=== PATIENT | male | born 1985 | race African-American/Black ===

== ENCOUNTER 2017-09-21 19:55 | Emergency (ER) | payer SELFPAY ==
[2017-09-21 20:27] LABS: Absolute Lymphocytes (CBC) 3.3 K/uL (0.7-4.9); Absolute Neutrophil 5.6 K/uL (1.8-8.0); Basophils % 0.8 % (0-1.3); Eosinophils % 2.2 % (0-4.4); Hematocrit 38.7 % (39.6-49.0); Lymphocytes % 32.6 % (15.3-44.8); MCH 28.8 pg (27.0-35.0); MCV 85.3 fL (80-100); MPV 8.2 fL (7.6-11.3); Monocytes % 9.4 % (3.3-12.3); RBC Red Blood Cell Count 4.54 M/uL (4.33-5.43)
[2017-09-21 20:30] LABS: Protime INR 1.07
[2017-09-21 20:35] LABS: Bicarbonate 23 mEq/L (21-31); Glucose Level 390 mg/dL (65-120); Sodium Level 135 mEq/L (135-145)
--- NOTE | 2017-09-21 20:37 | RAD REPORT ---
EXAM DESCRIPTION: RAD - Chest Single View - 09/21/2017 8:18 pm CLINICAL HISTORY: Chest pain. COMPARISON: 07/21/2017 FINDINGS: Portable technique limits examination quality. The lungs are grossly clear. The heart is normal in size. No displaced fractures. IMPRESSION: No acute intrathoracic process suspected.
[2017-09-21 20:41] LABS: ALT/SGPT 25 IU/L (10-60); AST/SGOT 20 IU/L (10-42); Alkaline Phosphatase 77 IU/L (42-121); BUN Blood Urea Nitrogen 13 mg/dL (6-20); Bilirubin Direct 0.1 mg/dL (0-0.2); Bilirubin Total 0.5 mg/dL (0.3-1.2); Creatine Phosphokinase 259 IU/L (22-269); Glomerular Filtration Rate > 90 mL/min (=/>90); Magnesium 1.6 mg/dL (1.8-2.5); Protein, Total 7.4 g/dL (6.0-8.3)
[2017-09-21 20:44] LABS: CKMB Creatine Kinase MB 1.2 ng/ml (0.3-4.0)
[2017-09-21] MEDS ORDERED: NA CHLORIDE 0.9% 1,000 ML ONE (20:45)
[2017-09-21] MEDS ORDERED: INSULIN -REGULAR HUMAN 50 UNIT/0.5 ML ML ONE (20:45)
[2017-09-21 21:04] LABS: Urine Blood TRACE (NEG); Urine Glucose 2+ (NEG); Urine Protein NEGATIVE (NEG); Urine Specific Gravity 1.015 (1.005-1.030)
[2017-09-21] MEDS ORDERED: TRAMADOL HCL 50 MG TAB ONE (21:11)
--- NOTE | 2017-09-21 21:43 | RAD REPORT ---
EXAM DESCRIPTION: CT - Chest For Pe Angio - 09/21/2017 9:33 pm CLINICAL HISTORY: Chest pain. COMPARISON: None. TECHNIQUE: CT angiogram of the pulmonary arteries was performed with MIP. All CT scans are performed using dose optimization technique as appropriate and may include automated exposure control or mA/KV adjustment according to patient size. FINDINGS: No evidence of pulmonary thromboembolism. No acute aortic finding demonstrated. The lungs are clear. No significant pericardial or pleural fluid. No concerning bony finding. IMPRESSION: No evidence of pulmonary thromboembolism. No acute lung findings.
--- NOTE | 2017-09-21 23:31 | EDPHYS ---
Physician Documentation [facility] Name: Dustin Granados Jr Age: 32 yrs Sex: Male : 1985 Arrival Date: 09/21/2017 Time: 19:59 Bed 4 Private MD: ED Physician Jimi Pinto HPI: 09/21 20:15 This 32 yrs old Black Male presents to ER via EMS with unknown complaint. pkl 20:15 The patient or guardian reports chest pain that is located primarily in the left side pkl chest. The pain does not radiate. Associated signs and symptoms: Pertinent positives: shortness of breath. The chest pain is described as sharp, Chest pain intermittent. Historical: - Allergies: 20:05 No Known Allergies; fc - Home Meds: 20:05 losartan 50 mg oral tab 1 tab once daily [Active]; Eliquis 5 mg oral tab 1 tab 2 times fc per day [Active]; aspirin 325 mg Oral TbEC 1 tab once daily [Active]; Glyburide Oral 2 times per day [Active]; - PMHx: 20:05 Myocardial infarction; Diabetes - NIDDM; left leg dvt; fc - PSHx: 20:05 Knee surgery; fc - Immunization history:: Last tetanus immunization: unknown. - Social history:: Smoking status: Patient/guardian denies using tobacco, the patient reports quitting approximately .4 years ago, Patient/guardian denies using alcohol, street drugs. ROS: 20:15 Eyes: Negative for injury, pain, redness, and discharge, ENT: Negative for injury, pkl pain, and discharge, Neck: Negative for injury, pain, and swelling. 20:15 Cardiovascular: Positive for chest pain. 20:15 Respiratory: Negative for cough, shortness of breath. 20:15 Abdomen/GI: Negative for abdominal pain, nausea, vomiting, and diarrhea. 20:15 Back: Negative for acute changes. 20:15 : Negative for urinary symptoms. 20:15 MS/extremity: Negative for acute changes. 20:15 Skin: Negative for rash. 20:15 Neuro: Negative for altered mental status. Exam: 20:15 Head/Face: Normocephalic, atraumatic. Eyes: Pupils equal round and reactive to light, pkl extra-ocular motions intact. Lids and lashes normal. Conjunctiva and sclera are non-icteric and not injected. Cornea within normal limits. Periorbital areas with no swelling, redness, or edema. ENT: Nares patent. No nasal discharge, no septal abnormalities noted. Tympanic membranes are normal and external auditory canals are clear. Oropharynx with no redness, swelling, or masses, exudates, or evidence of obstruction, uvula midline. Mucous membranes moist. Neck: Trachea midline, no thyromegaly or masses palpated, and no cervical lymphadenopathy. Supple, full range of motion without nuchal rigidity, or vertebral point tenderness. No Meningismus. Chest/axilla: Normal chest wall appearance and motion. Nontender with no deformity. No lesions are appreciated. Cardiovascular: Regular rate and rhythm with a normal S1 and S2. No gallops, murmurs, or rubs. Normal PMI, no JVD. No pulse deficits. Respiratory: Lungs have equal breath sounds bilaterally, clear to auscultation and percussion. No rales, rhonchi or wheezes noted. No increased work of breathing, no retractions or nasal flaring. Abdomen/GI: Soft, non-tender, with normal bowel sounds. No distension or tympany. No guarding or rebound. No evidence of tenderness throughout. Back: No spinal tenderness. No costovertebral tenderness. Full range of motion. Skin: Warm, dry with normal turgor. Normal color with no rashes, no lesions, and no evidence of cellulitis. MS/ Extremity: Pulses equal, no cyanosis. Neurovascular intact. Full, normal range of motion. Neuro: Awake and alert, GCS 15, oriented to person, place, time, and situation. Cranial nerves II-XII grossly intact. Motor strength 5/5 in all extremities. Sensory grossly intact. Cerebellar exam normal. Normal gait. Vital Signs: 19:58 BP 139 / 86; Pulse 85; Resp 18; Temp 98.6(O); Pulse Ox 100% on R/A; Weight 140.16 kg fc (R); Height 5 ft. 11 in. (180.34 cm) (R); Pain 0/10; 21:00 BP 127 / 80; Pulse 79; Resp 18; Pulse Ox 100% ; aa1 21:50 BP 111 / 68; Pulse 78; Resp 18 S; Pulse Ox 100% on R/A; cc 22:32 BP 112 / 82; Pulse 70; Resp 20 S; Temp 97.9(O); Pulse Ox 99% ; bb 19:58 Body Mass Index 43.10 (140.16 kg, 180.34 cm) fc MDM: 20:00 Patient medically screened. pk 23:28 Data reviewed: vital signs, nurses notes, lab test result(s), EKG, radiologic studies, pkl CT scan, plain films. 09/21 20:06 Order name: Basic Metabolic Panel; Complete Time: 21:11 [facility] 09/21 20:06 Order name: BNP; Complete Time: 21:11 1 09/21 20:06 Order name: CBC with Diff; Complete Time: 20:31 em1 09/21 20:06 Order name: Ckmb; Complete Time: 21:11 [facility] 09/21 20:06 Order name: CPK; Complete Time: 21:11 1 09/21 20:06 Order name: LFT's; Complete Time: 21:11 [facility] 09/21 20:06 Order name: Magnesium; Complete Time: 21: [facility] 09/21 20:06 Order name: PT-INR; Complete Time: 21:11 1 09/21 20:06 Order name: Ptt, Activated; Complete Time: 21:11 [facility] 09/21 20:06 Order name: Troponin (emerg Dept Use Only); Complete Time: 21:11 1 09/21 20:14 Order name: Hemoglobin A1c [facility] 09/21 20:20 Order name: D-Dimer; Complete Time: 21:11 EDMD 09/21 20:53 Order name: Urine Dipstick--Ancillary (enter results); Complete Time: 21: [facility] 09/21 20:06 Order name: XRAY Chest (1 view); Complete Time: 21:11 1 09/21 20:06 Order name: EKG; Complete Time: 20:07 1 09/21 20:06 Order name: Cardiac monitoring; Complete Time: 20: 1 09/21 20:06 Order name: EKG - Nurse/Tech; Complete Time: 20:31 09/21 20:06 Order name: IV Saline Lock; Complete Time: 20:31 1 09/21 20:06 Order name: Labs collected and sent; Complete Time: 20:32 1 09/21 20:06 Order name: O2 Per Protocol; Complete Time: 20:32 em1 09/21 20:06 Order name: O2 Sat Monitoring; Complete Time: 20:32 em1 09/21 20:06 Order name: Urine Dipstick-Ancillary (obtain specimen); Complete Time: 20:52 em1 09/21 20:14 Order name: Accucheck: q hourly; Complete Time: 21:31 pkl 09/21 21:12 Order name: CT Chest For PE Angio; Complete Time: 22:55 pkl Administered Medications: 20:31 Drug: NS 0.9% 1000 ml Route: IV; Rate: 100 ml/hr; Site: left antecubital; bb 23:44 Follow up: IV Status: Order to discontinue infusion; IV Intake: 300ml bb 20:40 Drug: Insulin Regular Human 10 units {Co-Signature: aa1 (Jasmyne Mccarthy RN).} Route: IVP; bb Site: left antecubital; 22:07 Follow up: Response: Blood sugar is lowered bb 20:55 Drug: traMADol 50 mg Route: PO; bb 22:07 Follow up: Response: Pain is decreased bb 23:28 Not Given (Patient Refused): Magnesium Sulfate 1 grams IVPB once over 1 hrs pkl 23:30 Drug: Magnesium Oxide 400 mg Route: PO; bb 23:44 Follow up: Response: No adverse reaction bb Point of Care Testing: Blood Glucose: 21:48 Blood Glucose: 162 mg/dL; cc 23:36 Blood Glucose: 189 mg/dL; cc Ranges: Critical Glucose Levels:Adult <50 mg/dl or >400 mg/dl <40 mg/dl or >180 mg/dl Disposition: 09/21/17 23:30 Discharged to Home. Impression: Chest pain. Uncontrolled diabetes. - Condition is Stable. - Medication Reconciliation Form, Thank You Letter, Antibiotic Education, Prescription Opioid Use form. - Follow up: Private Physician; When: 2 - 3 days; Reason: Re-evaluation by your physician. - Problem is new. - Symptoms have improved. Signatures: Dispatcher [employer] EDJimi Christianson MD MD pkl Chretien, Felicia, RN RN fc Ballard, Brenda, RN RN bb Martinez, Eric em1 Jasmyne Mccarthy RN aa1 Corrections: (The following items were deleted from the chart) 20:20 20:11 D-DIMER+[id number].BRZ ordered. EDMS EDMS
--- NOTE | 2017-09-21 23:31 | ER ---
Nurse's Notes [facility] Name: Dustin Granados Jr Age: 32 yrs Sex: Male : 1985 Arrival Date: 09/21/2017 Time: 19:59 Bed 4 Private MD: Diagnosis: Chest pain. Uncontrolled diabetes Presentation: 09/21 19:58 Presenting complaint: Patient states: that at 0300 he started to have intermittent fc sharp stabbing chest pain with shortness of breath. Denies any nausea or vomiting. Transition of care: patient was not received from another setting of care. Onset of symptoms was September 21, 2017 at 03:00. Care prior to arrival: Medication(s) given: ASA, 81 mg, x 4, Nitroglycerin, 0.4 mg SL x 1, Nitro paste 2 inches to chest wall IV initiated. 18 GA, in the right antecubital area, Glucose check: 465. 19:58 Method Of Arrival: EMS: [facility] 19:58 Acuity: NICHOLE 2 fc Historical: - Allergies: 20:05 No Known Allergies; fc - Home Meds: 20:05 losartan 50 mg oral tab 1 tab once daily [Active]; Eliquis 5 mg oral tab 1 tab 2 times fc per day [Active]; aspirin 325 mg Oral TbEC 1 tab once daily [Active]; Glyburide Oral 2 times per day [Active]; - PMHx: 20:05 Myocardial infarction; Diabetes - NIDDM; left leg dvt; fc - PSHx: 20:05 Knee surgery; fc - Immunization history:: Last tetanus immunization: unknown. - Social history:: Smoking status: Patient/guardian denies using tobacco, the patient reports quitting approximately .4 years ago, Patient/guardian denies using alcohol, street drugs. Screenin:06 Abuse screen: Denies threats or abuse. Nutritional screening: No deficits noted. fc Tuberculosis screening: No symptoms or risk factors identified. Fall Risk None identified. Assessment: 20:07 General: Appears in no apparent distress. uncomfortable, obese, Behavior is bb cooperative, anxious, Reports chest pain since 0330 this morning with shortness of breath. Pain: Complains of pain in chest. Neuro: Level of Consciousness is awake, alert, obeys commands, Oriented to person, place, time, situation. Cardiovascular: Heart tones S1 S2 Capillary refill < 3 seconds Patient's skin is warm and dry. Respiratory: 20:08 Respiratory: Respiratory pattern is tachypnea Breath sounds are clear bilaterally. GI: bb No signs and/or symptoms were reported involving the gastrointestinal system. Derm: Skin is dry, Skin is normal, Skin temperature is warm. Musculoskeletal: Circulation, motion, and sensation intact. Swelling present in left leg Reports DVT in left leg with swelling. 21:33 Reassessment: Patient and/or family updated on plan of care and expected duration. Pain bb level reassessed. pt A\T\O x 4, resp tachypneic, IV site patent, intact with fluids infusing. 22:33 Reassessment: Patient and/or family updated on plan of care and expected duration. Pain bb level reassessed. pt states his pain has improved, resting quietly, IV site intact, patent with fluids infusing, awaiting repeat labs. 23:42 Reassessment: Patient is alert, oriented x 3, equal unlabored respirations, skin bb warm/dry/pink. pt resp unlabored, states he is feeling better, verbalized understanding of and agrees to plan of care discharge instructions given pt ambulated with steady gait to exit. Vital Signs: 19:58 BP 139 / 86; Pulse 85; Resp 18; Temp 98.6(O); Pulse Ox 100% on R/A; Weight 140.16 kg fc (R); Height 5 ft. 11 in. (180.34 cm) (R); Pain 0/10; 21:00 BP 127 / 80; Pulse 79; Resp 18; Pulse Ox 100% ; aa1 21:50 BP 111 / 68; Pulse 78; Resp 18 S; Pulse Ox 100% on R/A; cc 22:32 BP 112 / 82; Pulse 70; Resp 20 S; Temp 97.9(O); Pulse Ox 99% ; bb 19:58 Body Mass Index 43.10 (140.16 kg, 180.34 cm) ED Course: 19:58 Arm band placed on Patient placed in an exam room, on a stretcher, on radiation monitor. fc 19:59 Patient arrived in ED. em1 20:00 Jimi Pinto MD is Attending Physician. pkl 20:03 Triage completed. fc 20:06 Isha Montano RN is Primary Nurse. bb 20:06 Patient has correct armband on for positive identification. Bed in low position. Call fc light in reach. athletic monitor on. Pulse ox on. NIBP on. 20:07 No provider procedures requiring assistance completed. Maintain EMS IV. Dressing fc intact. Good blood return noted. Site clean \T\ dry. Gauge \T\ site: 18 gauge to right a/c. 20:08 Warm blanket given. bb 20:18 X-ray completed. Portable x-ray completed in exam room. Patient tolerated procedure kc2 well. 20:18 XRAY Chest (1 view) In Process Unspecified. EDMS 21:33 CT Chest For PE Angio In Process Unspecified. EDMS 23:48 IV discontinued, intact, bleeding controlled, No redness/swelling at site. Pressure bb dressing applied. Administered Medications: 20:31 Drug: NS 0.9% 1000 ml Route: IV; Rate: 100 ml/hr; Site: left antecubital; bb 23:44 Follow up: IV Status: Order to discontinue infusion; IV Intake: 300ml bb 20:40 Drug: Insulin Regular Human 10 units {Co-Signature: aa1 (Jasmyne Mccarthy RN).} Route: IVP; bb Site: left antecubital; 22:07 Follow up: Response: Blood sugar is lowered bb 20:55 Drug: traMADol 50 mg Route: PO; bb 22:07 Follow up: Response: Pain is decreased bb 23:28 Not Given (Patient Refused): Magnesium Sulfate 1 grams IVPB once over 1 hrs pkl 23:30 Drug: Magnesium Oxide 400 mg Route: PO; bb 23:44 Follow up: Response: No adverse reaction bb Point of Care Testing: Blood Glucose: 21:48 Blood Glucose: 162 mg/dL; cc 23:36 Blood Glucose: 189 mg/dL; cc Ranges: Intake: 23:44 IV: 300ml; Total: 300ml. bb Outcome: 23:30 Discharge ordered by . pkl 23:48 Discharged to home ambulatory, with family. bb 23:48 Condition: stable 23:48 Discharge instructions given to patient, Instructed on discharge instructions, follow up and referral plans. Demonstrated understanding of instructions, follow-up care. 23:50 Patient left the ED. bb Signatures: Dispatcher [employer] Jasmyne Mcdonald RN RN aa1 Jimi Pinto MD MD pkChel Cabral RN RN fc Ballard, Brenda RN Brody Jarvis em1 Lore Ott Kelsie 2 Jasmyne Mccarthy RN aa1 Corrections: (The following items were deleted from the chart) 21:33 20:08 Respiratory: Breath sounds are clear bilaterally. raquel garcía 23:49 22:32 BP 112 / 82; Pulse 70bpm; Resp 20bpm; Spontaneous; Pulse Ox 99%; raquel garcía
[2017-09-21] MEDS ORDERED: MAGNESIUM OXIDE 400 MG TAB ONE (23:52)
[2017-09-21 23:58] VITALS: BP 112/82; TEMP 97.9; O2SAT 99
[2017-09-22 01:36] LABS: A1c Component 1.03 mg/dL; Hemoglobin A1c 9.2 % (4-6.0)
--- NOTE | 2017-09-22 06:06 | EKG ---
Test Date: 2017-09-21 Test Time: 19:59:42 Director Of Rehabilitation: MEASUREMENT RESULTS: Intervals: Rate: 82 [place]: 140 QRSD: 80 QT: 360 QTc: 420 [place]: P: 0 [place]: 140 QRS: 57 T: 19 INTERPRETIVE STATEMENTS: Normal sinus rhythm Normal ECG Compared to ECG 07/21/2017 14:57:54 No significant changes Electronically Signed On 09-22-17 06:06:22 CDT by Aba Hatch
== END 2017-09-21 23:50 | disposition home or self-care (01) ==
LOC: ER 19:55
DX: E11.65 Type 2 diabetes mellitus with hyperglycemia (principal); I25.2 Old myocardial infarction; Z79.82 Long term (current) use of aspirin; Z87.891 Personal history of nicotine dependence
CPT/HCPCS: 36415; 71045; 71275; 80048; 80076; 81003; 82550; 82553; 82962; 83036; 83735; 83880; 84484; 85025; 85379; 85610; 85730; 93005; 96361; 96374; 99284; J7030; Q9967

== ENCOUNTER 2018-10-13 15:44 | Emergency (ER) | payer SELFPAY ==
[2018-10-13 16:34] LABS: Absolute Lymphocytes (CBC) 2.4 K/uL (0.7-4.9); Absolute Monocytes 0.6 K/uL (0.1-1.3); Absolute Neutrophil 4.9 K/uL (1.8-8.0); Basophils % 0.7 % (0-1.3); Eosinophils % 1.7 % (0-4.4); Hematocrit 46.2 % (39.6-49.0); Lymphocytes % 29.3 % (15.3-44.8); MPV 8.1 fL (7.6-11.3)
[2018-10-13] MEDS ORDERED: KETOROLAC 30 MG/ML INJ ONE (16:35)
[2018-10-13] MEDS ORDERED: NA CHLORIDE 0.9% 1,000 ML ONE ×2 (16:35→18:00)
[2018-10-13] MEDS ORDERED: ONDANSETRON 4 MG/2 ML VIAL ONE (16:35)
--- NOTE | 2018-10-13 16:40 | RAD REPORT ---
EXAM DESCRIPTION: CT - Stone Protocol - 10/13/2018 4:31 pm CLINICAL HISTORY: Right abdominal pain, right-sided flank pain COMPARISON: None. TECHNIQUE: Axial 5 mm thick images were obtained without oral or IV contrast. The [id number] span s the entirety of the system partially obscuring uppermost abdomen and lung bases. All CT scans are performed using dose optimization technique as appropriate and may include automated exposure control or mA/KV adjustment according to patient size. FINDINGS: No hydronephrosis is present and no obstructing ureteral calculi. No suspicious renal mass es. Isodense masses and pyelonephritis are not excluded on a stone protocol CT scan. No urinary bladd er suspicious finding. No significant adrenal finding. Prostate gland and seminal vesicles within nor mal limits for noncontrast imaging. Imaged portions of the liver, spleen and pancreas show no suspicious findings on non-contrast imaging . No gallbladder or biliary tree abnormality identified. No suspicious bowel findings. Appendix is normal. Moderate stool volume distends the rectum. No mass or bulky lymphadenopathy. A small fat only umbilical hernia is present. No free air, free flu id or inflammatory stranding. No significant bony abnormality. Disc and bony degenerative changes are present in the mid and lower lumbar spine extending into the SI joints. IMPRESSION: Negative noncontrast CT abdomen and pelvis imaging for acute findings. Isodense masses and pyelonephritis are not excluded on stone protocol technique. Nonacute findings detailed in the body of the report.
[2018-10-13] MEDS ORDERED: CYCLOBENZAPRINE 10 MG TAB ONE (17:14)
[2018-10-13 17:22] LABS: Urine Bacteria <20 /HPF (NONE SEEN); Urine Culture Reflex Order NOT NEEDED; Urine RBC <5 /HPF (NONE SEEN)
[2018-10-13 17:33] LABS: ALT/SGPT 25 U/L (12-78); AST/SGOT 9 U/L (15-37); Albumin 3.9 g/dL (3.4-5.0); Alkaline Phosphatase 94 U/L (45-117); BUN Blood Urea Nitrogen 6 mg/dL (7-18); Bicarbonate 25 mmol/L (21-32); Bilirubin Direct 0.1 mg/dL (0-0.2); Bilirubin Total 0.3 mg/dL (0.2-1.0); Lipase 100 U/L (73-393); Protein, Total 7.9 g/dL (6.4-8.2); Sodium Level 138 mmol/L (136-145)
[2018-10-13 17:36] LABS: Glucose Level 420 mg/dL (74-106)
[2018-10-13] MEDS ORDERED: INSULIN -REGULAR HUMAN 50 UNIT/0.5 ML ML ONE (17:59)
[2018-10-13 18:37] LABS: Urine Blood NEGATIVE (NEG); Urine Glucose 2+ (NEG); Urine Protein NEGATIVE (NEG)
--- NOTE | 2018-10-13 19:08 | EDPHYS ---
Physician Documentation [facility] Name: Dustin Granados Jr Age: 33 yrs Sex: Male : 1985 Arrival Date: 10/13/2018 Time: 15:47 Bed 24 Private MD: None, None ED Physician Kyaw Rivera HPI: 10/13 16:05 This 33 yrs old Black Male presents to ER via Ambulatory with complaints of Flank Pain. cp 16:05 The patient complains of pain in the right mid back. The pain does not radiate. Onset: cp The symptoms/episode began/occurred last night. Associated signs and symptoms: Pertinent positives: diarrhea, Pertinent negatives: dysuria, fever, pain radiating to the lower extremities, vomiting. Severity of pain: in the emergency department the pain is actually worse. Historical: - Allergies: 15:52 No Known Allergies; hb - Home Meds: 15:51 Eliquis 5 mg Oral tab 1 tab 2 times per day [Active]; hb - PMHx: 15:51 Diabetes - NIDDM; left leg DVT; Myocardial infarction; hb - PSHx: 15:51 Knee surgery; hb - Immunization history:: Adult Immunizations up to date. - Social history:: Smoking status: Patient/guardian denies using tobacco. - Ebola Screening: : No symptoms or risks identified at this time. ROS: 16:10 Constitutional: Negative for body aches, chills, fever, poor PO intake. cp 16:10 Eyes: Negative for injury, pain, redness, and discharge. cp 16:10 ENT: Negative for drainage from ear(s), ear pain, sore throat, difficulty swallowing, difficulty handling secretions. 16:10 Cardiovascular: Negative for chest pain, edema, palpitations. 16:10 Respiratory: Negative for cough, shortness of breath, wheezing. 16:10 Abdomen/GI: Positive for diarrhea, Negative for abdominal pain, nausea, vomiting, constipation, anorexia, black/tarry stool, rectal bleeding. 16:10 Back: Positive for flank pain, on the right. 16:10 : Negative for urinary symptoms, burning with urination, difficulty urinating, bladder incontinence, testicular pain 16:10 Skin: Negative for cellulitis, rash. 16:10 Neuro: Negative for altered mental status, headache, weakness. 16:10 All other systems are negative. Exam: 16:15 Constitutional: The patient appears in no acute distress, alert, awake, cp non-diaphoretic, non-toxic, well developed, well nourished, uncomfortable. 16:15 Head/Face: Normocephalic, atraumatic. cp 16:15 Eyes: Periorbital structures: appear normal, Conjunctiva: normal, no exudate, no injection, Lids and lashes: appear normal, bilaterally. 16:15 ENT: External ear(s): are unremarkable, Nose: is normal, Mouth: Lips: moist, Oral mucosa: pink and intact, moist, Posterior pharynx: is normal, airway is patent, no erythema, no exudate. 16:15 Neck: ROM/movement: is normal, is supple, without pain, no range of motions limitations, no nuchal rigidity. 16:15 Chest/axilla: Inspection: normal, Palpation: is normal, no crepitus, no tenderness. 16:15 Cardiovascular: Rate: tachycardic, Rhythm: regular. 16:15 Respiratory: the patient does not display signs of respiratory distress, Respirations: normal, no use of accessory muscles, no retractions, no splinting, no tachypnea, labored breathing, is not present, Breath sounds: are clear throughout, no decreased breath sounds, no stridor, no wheezing. 16:15 Abdomen/GI: Inspection: abdomen appears normal, Bowel sounds: active, all quadrants, Palpation: abdomen is soft and non-tender, in all quadrants, rebound tenderness, is not appreciated, voluntary guarding, is not appreciated, involuntary guarding, is not appreciated. 16:15 Back: pain, that is moderate, of the right mid back, ROM is painful, with all movement, Straight leg raises: of both lower extremities does not illicit pain. 16:15 Skin: cellulitis, is not appreciated, no rash present. Vital Signs: 15:50 BP 177 / 122; Pulse 118; Resp 18; Temp 97.9; Pulse Ox 100% on R/A; Pain 10/10; hb 17:07 BP 127 / 86; Pulse 73; Resp 17 S; Pulse Ox 100% on R/A; ca1 17:53 BP 132 / 87; Pulse 67; Resp 18 S; Pulse Ox 100% on R/A; ca1 18:55 BP 139 / 90; Pulse 67; Resp 18 S; Pulse Ox 100% on R/A; ca1 MDM: 16:01 Patient medically screened. 19:06 Data reviewed: vital signs, nurses notes, lab test result(s), radiologic studies, CT cp scan. 19:06 Counseling: I had a detailed discussion with the patient and/or guardian regarding: the cp historical points, exam findings, and any diagnostic results supporting the discharge/admit diagnosis, lab results, radiology results, to return to the emergency department if symptoms worsen or persist or if there are any questions or concerns that arise at home. Response to treatment: the patient's symptoms have markedly improved after treatment, and as a result, I will discharge patient. 10/13 16:07 Order name: Basic Metabolic Panel; Complete Time: 17:37 10/13 17:38 Interpretation: Normal except: GLUC 420; BUN 6. 10/13 16:07 Order name: CBC with Diff; Complete Time: 16:43 10/13 16:43 Interpretation: Reviewed. 10/13 16:07 Order name: Creatinine for Radiology; Complete Time: 17:04 10/13 17:04 Interpretation: Reviewed. 10/13 16:07 Order name: Hepatic Function; Complete Time: 17:37 10/13 17:58 Interpretation: Normal except: AST 9; GLOB 4.0; A/G 1.0. 10/13 16:07 Order name: Lipase; Complete Time: 17:37 cp 10/13 16:07 Order name: Urine Microscopic Only; Complete Time: 17:37 10/13 16:13 Order name: CT Stone Protocol; Complete Time: 16:43 10/13 17:05 Interpretation: Report reviewed. 10/13 16:34 Order name: Urine Dipstick--Ancillary (enter results); Complete Time: 18:46 10/13 18:46 Interpretation: Reviewed. 10/13 19:04 Order name: Glucose, Ancillary Testing EDFL 10/13 16:07 Order name: IV Saline Lock; Complete Time: 16:26 10/13 16:07 Order name: Labs collected and sent; Complete Time: 16:26 10/13 16:07 Order name: Urine Dipstick-Ancillary (obtain specimen); Complete Time: 16:26 cp Administered Medications: 16:22 Drug: NS 0.9% 1000 ml Route: IV; Rate: 1 bolus; Site: right antecubital; ca1 17:51 Follow up: Response: No adverse reaction; IV Status: Completed infusion ca1 16:23 Drug: Zofran 4 mg Route: IVP; Site: right antecubital; ca1 17:03 Follow up: Response: No adverse reaction; Nausea is decreased ca1 16:25 Drug: TORadol 30 mg Route: IVP; Site: right antecubital; ca1 17:03 Follow up: Response: No adverse reaction; Pain is decreased ca1 17:00 Drug: Flexeril 10 mg Route: PO; ca1 17:50 Follow up: Response: No adverse reaction; Pain is decreased ca1 17:49 Drug: NS 0.9% 1000 ml Route: IV; Rate: 1 bolus; Site: right antecubital; ca1 18:50 Follow up: IV Status: Completed infusion ca1 17:50 Drug: Insulin Regular Human 10 units {Co-Signature: mg2 (Jayden Caceres RN).} Route: ca1 IVP; Site: right antecubital; 19:00 Follow up: Response: No adverse reaction; Blood sugar is lowered ca1 Point of Care Testing: Blood Glucose: 19:00 Blood Glucose: 173 mg/dL; lt1 Ranges: Critical Glucose Levels:Adult <50 mg/dl or >400 mg/dl <40 mg/dl or >180 mg/dl Disposition: 10/13/18 19:07 Discharged to Home. Impression: Low back pain - Right, Diabetes mellitus due to underlying condition with hyperglycemia. - Condition is Stable. - Discharge Instructions: Back Pain, Adult, Blood Glucose Monitoring, Adult, Diabetes Mellitus and Food, Back Exercises. - Prescriptions for Naprosyn 500 mg Oral Tablet - take 1 tablet by ORAL route 2 times per day take with food; 20 tablet. Cyclobenzaprine 10 mg Oral Tablet - take 1 tablet by ORAL route every 8 hours As needed no driving while taking medication; 20 tablet. - Medication Reconciliation Form, Thank You Letter, Antibiotic Education, Prescription Opioid Use form. - Follow up: Private Physician; When: 2 - 3 days; Reason: Recheck today's complaints. - Problem is new. - Symptoms have improved. Signatures: Dispatcher [employer] EDFL Kyaw Almaguer PA PA cp Baxter, Heather, RN RN Fanta Ramos RN RN ca1 Jayden Gardose RN mg2 Corrections: (The following items were deleted from the chart) 19:29 19:07 10/13/2018 19:07 Discharged to Home. Impression: Low back pain - Right; Diabetes ca1 mellitus due to underlying condition with hyperglycemia. Condition is Stable. Forms are Medication Reconciliation Form, Thank You Letter, Antibiotic Education, Prescription Opioid Use. Follow up: Private Physician; When: 2 - 3 days; Reason: Recheck today's complaints. Problem is new. Symptoms have improved. cp
--- NOTE | 2018-10-13 19:08 | ER ---
[facility] Name: Dustin Granados Jr Age: 33 yrs Sex: Male : 1985 Arrival Date: 10/13/2018 Time: 15:47 Bed 24 Private MD: None, None Diagnosis: Low back pain-Right;Diabetes mellitus due to underlying condition with hyperglycemia Presentation: 10/13 15:49 Presenting complaint: Right flank pain x 2 days. Transition of care: patient was not hb received from another setting of care. Onset of symptoms was October 12, 2018. Risk Assessment: Do you want to hurt yourself or someone else? Patient reports no desire to harm self or others. Care prior to arrival: None. 15:49 Method Of Arrival: Ambulatory hb 15:49 Acuity: NICHOLE 2 hb 16:00 Initial Sepsis Screen: Does the patient meet any 2 criteria? No. Patient's initial ca1 sepsis screen is negative. Does the patient have a suspected source of infection? No. Patient's initial sepsis screen is negative. Historical: - Allergies: 15:52 No Known Allergies; hb - Home Meds: 15:51 Eliquis 5 mg Oral tab 1 tab 2 times per day [Active]; hb - PMHx: 15:51 Diabetes - NIDDM; left leg DVT; Myocardial infarction; hb - PSHx: 15:51 Knee surgery; hb - Immunization history:: Adult Immunizations up to date. - Social history:: Smoking status: Patient/guardian denies using tobacco. - Ebola Screening: : No symptoms or risks identified at this time. Screenin:00 Abuse screen: Denies threats or abuse. Denies injuries from another. Nutritional ca1 screening: No deficits noted. Tuberculosis screening: No symptoms or risk factors identified. Fall Risk None identified. Assessment: 16:00 General: Appears in no apparent distress. comfortable, Behavior is calm, cooperative, ca1 appropriate for age. Pain: Complains of pain in right low back Pain radiates to posterior aspect of right lateral abdomen Pain currently is 10 out of 10 on a pain scale. Quality of pain is described as sharp, Pain began 1 day ago. Neuro: Level of Consciousness is awake, alert, obeys commands, Oriented to person, place, time, situation. Cardiovascular: Heart tones S1 S2 present Capillary refill < 3 seconds Patient's skin is warm and dry. Respiratory: Airway is patent Respiratory effort is even, unlabored, Respiratory pattern is regular, symmetrical, Breath sounds are clear bilaterally. GI: Abdomen is round non-distended, Bowel sounds present X 4 quads. Abd is soft X 4 quads Abdomen is tender to palpation in anterior aspect of right lateral abdomen and posterior aspect of right lateral abdomen. : No deficits noted. No signs and/or symptoms were reported regarding the genitourinary system. EENT: No deficits noted. No signs and/or symptoms were reported regarding the EENT system. Derm: Skin is intact, is healthy with good turgor, Skin is pink, warm \T\ dry. Musculoskeletal: Circulation, motion, and sensation intact. Capillary refill < 3 seconds. 17:05 Reassessment: Patient appears in no apparent distress at this time. Patient and/or ca1 family updated on plan of care and expected duration. Pain level reassessed. Patient is alert, oriented x 3, equal unlabored respirations, skin warm/dry/pink. 17:53 Reassessment: Patient appears in no apparent distress at this time. Patient and/or ca1 family updated on plan of care and expected duration. Pain level reassessed. Patient is alert, oriented x 3, equal unlabored respirations, skin warm/dry/pink. 18:55 Reassessment: Patient appears in no apparent distress at this time. Patient and/or ca1 family updated on plan of care and expected duration. Pain level reassessed. Patient is alert, oriented x 3, equal unlabored respirations, skin warm/dry/pink. Vital Signs: 15:50 BP 177 / 122; Pulse 118; Resp 18; Temp 97.9; Pulse Ox 100% on R/A; Pain 10/10; hb 17:07 BP 127 / 86; Pulse 73; Resp 17 S; Pulse Ox 100% on R/A; ca1 17:53 BP 132 / 87; Pulse 67; Resp 18 S; Pulse Ox 100% on R/A; ca1 18:55 BP 139 / 90; Pulse 67; Resp 18 S; Pulse Ox 100% on R/A; ca1 ED Course: 15:47 Patient arrived in ED. mr 15:47 None, None is Private Physician. mr 15:49 Triage completed. hb 15:50 Arm band placed on. hb 15:51 Kyaw Almaguer PA is PHCP. cp 15:51 Kyaw Rivera MD is Attending Physician. cp 16:00 Patient has correct armband on for positive identification. Placed in gown. Bed in low ca1 position. Call light in reach. Side rails up X 1. Pulse ox on. NIBP on. Warm blanket given. 16:07 Fanta Ramos, FENG is Primary Nurse. ca1 16:31 CT completed. Patient tolerated procedure well. Patient moved to [place]. Patient moved back ks from CT. 16:32 CT Stone Protocol In Process Unspecified. EDMS 16:33 Initial lab(s) drawn, by me, sent to lab. Inserted saline lock: 20 gauge in right lt1 antecubital area, using aseptic technique. 19:10 No provider procedures requiring assistance completed. IV discontinued, intact, ca1 bleeding controlled, No redness/swelling at site. Pressure dressing applied. Administered Medications: 16:22 Drug: NS 0.9% 1000 ml Route: IV; Rate: 1 bolus; Site: right antecubital; ca1 17:51 Follow up: Response: No adverse reaction; IV Status: Completed infusion ca1 16:23 Drug: Zofran 4 mg Route: IVP; Site: right antecubital; ca1 17:03 Follow up: Response: No adverse reaction; Nausea is decreased ca1 16:25 Drug: TORadol 30 mg Route: IVP; Site: right antecubital; ca1 17:03 Follow up: Response: No adverse reaction; Pain is decreased ca1 17:00 Drug: Flexeril 10 mg Route: PO; ca1 17:50 Follow up: Response: No adverse reaction; Pain is decreased ca1 17:49 Drug: NS 0.9% 1000 ml Route: IV; Rate: 1 bolus; Site: right antecubital; ca1 18:50 Follow up: IV Status: Completed infusion ca1 17:50 Drug: Insulin Regular Human 10 units {Co-Signature: mg2 (Jayden Caceres RN).} Route: ca1 IVP; Site: right antecubital; 19:00 Follow up: Response: No adverse reaction; Blood sugar is lowered ca1 Point of Care Testing: Blood Glucose: 19:00 Blood Glucose: 173 mg/dL; lt1 Ranges: Outcome: 19:07 Discharge ordered by . cp 19:20 Discharged to home ambulatory. ca1 19:20 Condition: stable 19:20 Discharge instructions given to patient, Instructed on discharge instructions, follow up and referral plans. medication usage, Demonstrated understanding of instructions, follow-up care, medications, Prescriptions given X 2. 19:29 Patient left the ED. ca1 Signatures: Dispatcher [employer] LOPEZAR Lila Chong Kyaw Almaguer PA PA cp Baxter, Heather, RN RN hb Colton MervinFanta Marks RN RN ca1 Logan, Adrianna lt1 Jayden Caceres RN mg2 Corrections: (The following items were deleted from the chart) 15:50 15:49 Acuity: NICHOLE 3 hb hb 15:51 15:50 BP 177 / 122; Pulse 136bpm; Resp 18bpm; Pulse Ox 100% RA; Temp 97.9F; Pain 10/10; hb hb 17:09 17:07 BP 118 / 95; Pulse 73bpm; Resp 17bpm; Spontaneous; Pulse Ox 100% RA; ca1 ca1
[2018-10-13 19:43] VITALS: TEMP 97.9; O2SAT 100
[2018-10-13 19:48] VITALS: BP 139/90
== END 2018-10-13 19:29 | disposition home or self-care (01) ==
LOC: ER 15:44
DX: M54.5 Low back pain (principal); E11.65 Type 2 diabetes mellitus with hyperglycemia; I25.2 Old myocardial infarction
CPT/HCPCS: 36415; 74176; 76377; 80048; 80076; 81003; 81015; 82962; 83690; 85025; 96361; 96374; 96375; 99284; J2405; J7030

== ENCOUNTER 2018-11-16 11:00 | Emergency (ER) | payer SELFPAY ==
[2018-11-16 11:40] LABS: Absolute Lymphocytes (CBC) 1.9 K/uL (0.7-4.9); Absolute Monocytes 0.5 K/uL (0.1-1.3); Eosinophils % 1.6 % (0-4.4); Lymphocytes % 28.9 % (15.3-44.8); MPV 8.2 fL (7.6-11.3); Monocytes % 7.9 % (3.3-12.3); RBC Red Blood Cell Count 4.73 M/uL (4.33-5.43)
[2018-11-16 11:43] LABS: Protime INR 1.07
[2018-11-16] MEDS ORDERED: KETOROLAC 30 MG/ML INJ ONE (11:54)
[2018-11-16 12:05] LABS: ALT/SGPT 25 U/L (12-78); AST/SGOT 13 U/L (15-37); Albumin 3.4 g/dL (3.4-5.0); Alkaline Phosphatase 79 U/L (45-117); BUN Blood Urea Nitrogen 8 mg/dL (7-18); Bicarbonate 25 mmol/L (21-32); Bilirubin Direct 0.1 mg/dL (0-0.2); Bilirubin Total 0.5 mg/dL (0.2-1.0); Glucose Level 330 mg/dL (74-106); Lipase 97 U/L (73-393); Magnesium 1.7 mg/dL (1.8-2.4); NT PRO-BNP 69 pg/mL (<125); Protein, Total 6.9 g/dL (6.4-8.2); Sodium Level 141 mmol/L (136-145); Troponin (Emerg Dept Use Only) < 0.02 ng/mL (0.0-0.045)
--- NOTE | 2018-11-16 12:20 | RAD REPORT ---
EXAM DESCRIPTION: US - Extrem Venous W Compress Griffin - 11/16/2018 12:02 pm CLINICAL HISTORY: PAIN Bilateral leg edema and swelling. COMPARISON: Extremity Venous Uni Ltd dated 07/21/2017 TECHNIQUE: Real-time sonographic interrogation of the left and right lower extremity deep venous sys tems was performed. FINDINGS: Evidence of old recannulized thrombus is seen left lower extremity deep venous system from the distal femoral vein to the calf. There is no evidence of acute DVT seen in either lower extremit y venous system. IMPRESSION: No sonographic evidence of left or right lower extremity deep venous thrombosis. Old thr ombus is noted with linear configuration in the left lower extremity deep venous system.
--- NOTE | 2018-11-16 12:29 | RAD REPORT ---
EXAM DESCRIPTION: RAD - Chest Single View - 11/16/2018 12:19 pm CLINICAL HISTORY: COUGH Chest pain. COMPARISON: Chest Single View dated 09/21/2017; Chest Single View dated 07/21/2017 FINDINGS: Portable technique limits examination quality. The lungs are grossly clear. The heart is normal in size. No displaced fractures. IMPRESSION: No acute intrathoracic process suspected.
--- NOTE | 2018-11-16 12:39 | EKG ---
Test Date: 2018-11-16 Test Time: 11:39:56 Educational Technology Coordinator: PATRICK MEASUREMENT RESULTS: Intervals: Rate: 79 MA: 144 QRSD: 80 QT: 378 QTc: 433 Mullin: P: 44 MA: 144 QRS: 57 T: 24 INTERPRETIVE STATEMENTS: Normal sinus rhythm with sinus arrhythmia Normal ECG Compared to ECG 09/21/2017 19:59:42 No significant changes Electronically Signed On 11-16-18 12:38:08 CDT by Akshat Sterling
--- NOTE | 2018-11-16 12:44 | RAD REPORT ---
EXAM DESCRIPTION: CT - Chest For Pe Angio - 11/16/2018 12:37 pm CLINICAL HISTORY: Dyspnea, chest pain COMPARISON: Chest films same date, CT PE study September 2017 TECHNIQUE: Dynamically enhanced 3 mm thick images of the chest were obtained during administration o f approximately 150mL Isovue 370 IV contrast. Coronal and oblique MIP reconstruction images were gene rated and reviewed. Exam utilizes a protocol to evaluate the pulmonary arterial tree. All CT scans are performed using dose optimization technique as appropriate and may include automated exposure control or mA/KV adjustment according to patient size. FINDINGS: No pulmonary emboli are identified. Far peripheral branch assessment is limited. Motion cr eates heterogeneity of attenuation. The aorta as imaged shows no acute or suspicious finding. No pericardial thickening or effusion. No infiltrate or mass in the lung parenchyma. No pleural effusion or pleural thickening. No mediastinal or hilar suspicious masses. No chest wall masses or abnormal axillary lymphadenopathy. IMPRESSION: No pulmonary emboli identified. No other significant or suspicious findings.No significant change from prior CT chest imaging.
--- NOTE | 2018-11-16 12:56 | ER ---
Nurse's Notes [facility] Name: Dustin Granados Jr Age: 33 yrs Sex: Male : 1985 Arrival Date: 11/16/2018 Time: 11:02 Bed 7 Private MD: Diagnosis: Pain in left leg;Type 2 diabetes mellitus;Hypomagnesemia Presentation: 11/16 11:07 Presenting complaint: Left lower leg pain and swelling x 1 week, Right flank pain x 2 hb days. Transition of care: patient was not received from another setting of care. Onset of symptoms was November 09, 2018. Risk Assessment: Do you want to hurt yourself or someone else? Patient reports no desire to harm self or others. Care prior to arrival: None. 11:07 Method Of Arrival: Ambulatory hb 11:07 Acuity: NICHOLE 3 hb 11:13 Initial Sepsis Screen: Does the patient meet any 2 criteria? No. Patient's initial tw2 sepsis screen is negative. Does the patient have a suspected source of infection? No. Patient's initial sepsis screen is negative. Historical: - Allergies: 11:09 No Known Allergies; hb - Home Meds: 11:09 Eliquis 5 mg Oral tab 1 tab 2 times per day [Active]; hb - PMHx: 11:09 Diabetes - NIDDM; left leg DVT; Myocardial infarction; hb - PSHx: 11:09 Knee surgery; hb - Immunization history:: Adult Immunizations up to date. - Social history:: Smoking status: Patient/guardian denies using tobacco. - Ebola Screening: : No symptoms or risks identified at this time. - Family history:: not pertinent. Screenin:13 Abuse screen: Denies threats or abuse. Nutritional screening: No deficits noted. tw2 Tuberculosis screening: No symptoms or risk factors identified. Fall Risk None identified. Assessment: 11:34 General: Appears in no apparent distress. Behavior is calm, cooperative, appropriate tw2 for age. Pain: Complains of pain in medial aspect of left calf and medial aspect of left knee and left calf. Neuro: Level of Consciousness is awake, alert, obeys commands, Oriented to person, place, time, situation. Cardiovascular: Heart tones S1 S2 Patient's skin is warm and dry. Respiratory: Airway is patent Respiratory effort is even, unlabored, Respiratory pattern is regular, symmetrical, Breath sounds are clear bilaterally. GI: No signs and/or symptoms were reported involving the gastrointestinal system. Reports flank pain Patient currently denies cramping, diarrhea. : Denies burning with urination, urinary frequency. EENT: No signs and/or symptoms were reported regarding the EENT system. Derm: No signs and/or symptoms reported regarding the dermatologic system. Musculoskeletal: Swelling present in left leg Reports pain in left calf. 13:00 Reassessment: Patient appears in no apparent distress at this time. No changes from tw2 previously documented assessment. Patient and/or family updated on plan of care and expected duration. Pain level reassessed. Patient is alert, oriented x 3, equal unlabored respirations, skin warm/dry/pink. 14:00 Reassessment: Patient appears in no apparent distress at this time. No changes from tw2 previously documented assessment. Patient and/or family updated on plan of care and expected duration. Pain level reassessed. Patient is alert, oriented x 3, equal unlabored respirations, skin warm/dry/pink. 15:00 Reassessment: Patient appears in no apparent distress at this time. No changes from tw2 previously documented assessment. Patient and/or family updated on plan of care and expected duration. Pain level reassessed. pt refused Tylenol#3, provider notified pt requests Tramadol 50 BID at this time PRIOR to discharge. 15:17 Reassessment: Patient appears in no apparent distress at this time. No changes from tw2 previously documented assessment. Patient and/or family updated on plan of care and expected duration. Pain level reassessed. Patient is alert, oriented x 3, equal unlabored respirations, skin warm/dry/pink. Vital Signs: 11:08 BP 155 / 92; Pulse 91; Resp 16; Temp 97.8; Pulse Ox 100% on R/A; Weight 129.73 kg; hb Height 5 ft. 11 in. (180.34 cm); Pain 8/10; 12:30 BP 157 / 91; Pulse 78; Resp 17; Pulse Ox 99% on R/A; tw2 13:30 BP 148 / 88; Pulse 71; Resp 16; Pulse Ox 99% on R/A; tw2 15:01 BP 144 / 84; Pulse 78; Resp 17; Pulse Ox 99% on R/A; tw2 11:08 Body Mass Index 39.89 (129.73 kg, 180.34 cm) hb ED Course: 11:02 Patient arrived in ED. as 11:08 Triage completed. hb 11:09 Arm band placed on. hb 11:13 Amie Gallagher, RN is Primary Nurse. tw2 11:13 Bed in low position. Call light in reach. Pulse ox on. NIBP on. tw2 11:15 Kyaw Rivera MD is Attending Physician. kobi 11:34 Inserted saline lock: 22 gauge in right antecubital area, using aseptic technique. tw2 Blood collected. 11:47 EKG done, by sterile instrument technician. reviewed by Kyaw Rivera MD. tc 11:56 US Extremity Venous W Compression Griffin In Process Unspecified. EDMS 12:19 XRAY Chest (1 view) In Process Unspecified. EDMS 12:[address] via wheelchair. sw 12:41 CT Chest For PE Angio In Process Unspecified. EDMS 12:55 Milan Flores MD is Referral Physician. kobi 13:39 Awaiting: completion of IV medication PRIOR to discharge. tw2 15:02 No provider procedures requiring assistance completed. IV discontinued, intact, tw2 bleeding controlled, No redness/swelling at site. Pressure dressing applied. Administered Medications: 11:40 Drug: TORadol 30 mg Route: IVP; Site: right antecubital; tw2 12:30 Follow up: Response: No adverse reaction; Pain is unchanged, physician notified tw2 13:40 Not Given (Physician Discretion): Insulin Regular Human 10 units Sub-Q once ss 13:46 Drug: traMADol 50 mg Route: PO; ss 15:02 Follow up: Response: No adverse reaction; Pain is decreased tw2 13:47 Drug: Magnesium Sulfate 1 grams Route: IVPB; Infused Over: 1 hrs; Site: right ss antecubital; 15:02 Follow up: Response: No adverse reaction; IV Status: Completed infusion tw2 14:16 Not Given (Patient Refused): NS 0.9% 1000 ml IV at 125 ml/hr continuous tw2 Point of Care Testing: Blood Glucose: 13:39 Blood Glucose: 298 mg/dL; ss Ranges: Outcome: 12:55 Discharge ordered by . kobi 15:16 Discharged to home ambulatory. tw2 15:16 Condition: stable 15:16 Discharge instructions given to patient, Instructed on discharge instructions, follow up and referral plans. medication usage, Demonstrated understanding of instructions, follow-up care, medications, Prescriptions given X 2. 15:17 Patient left the ED. tw2 Signatures: Dispatcher [employer] EDKyaw Herzog MD MD cha Martinez, Amelia as Smirch, Shelby, RN RN Priyanka Rodriguez, benefits manager EKG [facility] Catina Arndt Heather, RN RN Amie Gallagher RN RN tw2 Corrections: (The following items were deleted from the chart) 11:10 11:07 Presenting complaint: Left lower leg pain and swelling x 1 week hb hb 11:10 11:07 Acuity: NICHOLE 4 hb hb
--- NOTE | 2018-11-16 12:57 | EDPHYS ---
Physician Documentation [facility] Name: Dustin Granados Jr Age: 33 yrs Sex: Male : 1985 Arrival Date: 11/16/2018 Time: 11:02 Bed 7 Private MD: ED Physician Kyaw Rivera HPI: 11/16 11:23 This 33 yrs old Black Male presents to ER via Ambulatory with complaints of Leg kobi Swelling. 11:23 The patient presents with decreased range of motion, pain. The complaints affect the kobi lateral aspect of left thigh, lateral aspect of left knee, lateral aspect of left calf, left hamstring, posterior aspect of left knee, left calf, medial aspect of left thigh, medial aspect of left knee, medial aspect of left calf, left quadriceps, left knee and left giles. Context: The problem was sustained at home, resulted from an unknown cause. Onset: The symptoms/episode began/occurred 3 day(s) ago. Modifying factors: The symptoms are alleviated by elevating leg. Associated signs and symptoms: The patient has no apparent associated signs or symptoms. Severity of symptoms: At their worst the symptoms were mild, moderate, in the emergency department the symptoms are unchanged. The patient has not experienced similar symptoms in the past. Historical: - Allergies: 11:09 No Known Allergies; hb - Home Meds: 11:09 Eliquis 5 mg Oral tab 1 tab 2 times per day [Active]; hb - PMHx: 11:09 Diabetes - NIDDM; left leg DVT; Myocardial infarction; hb - PSHx: 11:09 Knee surgery; hb - Immunization history:: Adult Immunizations up to date. - Social history:: Smoking status: Patient/guardian denies using tobacco. - Ebola Screening: : No symptoms or risks identified at this time. - Family history:: not pertinent. ROS: 11:23 Constitutional: Negative for fever, chills, and weight loss, Eyes: Negative for injury, kobi pain, redness, and discharge, ENT: Negative for injury, pain, and discharge, Neck: Negative for injury, pain, and swelling, Cardiovascular: Negative for chest pain, palpitations, and edema, Respiratory: Negative for shortness of breath, cough, wheezing, and pleuritic chest pain, Abdomen/GI: Negative for abdominal pain, nausea, vomiting, diarrhea, and constipation, Back: Negative for injury and pain, : Negative for injury, bleeding, discharge, and swelling, Skin: Negative for injury, rash, and discoloration, Neuro: Negative for headache, weakness, numbness, tingling, and seizure, Psych: Negative for depression, anxiety, suicide ideation, homicidal ideation, and hallucinations, Allergy/Immunology: Negative for hives, rash, and allergies, Endocrine: Negative for neck swelling, polydipsia, polyuria, polyphagia, and marked weight changes, Hematologic/Lymphatic: Negative for swollen nodes, abnormal bleeding, and unusual bruising. 11:23 MS/extremity: Positive for pain, swelling, tenderness, of the left leg. Exam: 11:23 Constitutional: This is a well developed, well nourished patient who is awake, alert, kobi and in no acute distress. Head/Face: Normocephalic, atraumatic. Eyes: Pupils equal round and reactive to light, extra-ocular motions intact. Lids and lashes normal. Conjunctiva and sclera are non-icteric and not injected. Cornea within normal limits. Periorbital areas with no swelling, redness, or edema. ENT: Nares patent. No nasal discharge, no septal abnormalities noted. Tympanic membranes are normal and external auditory canals are clear. Oropharynx with no redness, swelling, or masses, exudates, or evidence of obstruction, uvula midline. Mucous membranes moist. Neck: Trachea midline, no thyromegaly or masses palpated, and no cervical lymphadenopathy. Supple, full range of motion without nuchal rigidity, or vertebral point tenderness. No Meningismus. Chest/axilla: Normal chest wall appearance and motion. Nontender with no deformity. No lesions are appreciated. Cardiovascular: Regular rate and rhythm with a normal S1 and S2. No gallops, murmurs, or rubs. Normal PMI, no JVD. No pulse deficits. Respiratory: Lungs have equal breath sounds bilaterally, clear to auscultation and percussion. No rales, rhonchi or wheezes noted. No increased work of breathing, no retractions or nasal flaring. Abdomen/GI: Soft, non-tender, with normal bowel sounds. No distension or tympany. No guarding or rebound. No evidence of tenderness throughout. Back: No spinal tenderness. No costovertebral tenderness. Full range of motion. Male : Normal genitalia with no discharge or lesions. Skin: Warm, dry with normal turgor. Normal color with no rashes, no lesions, and no evidence of cellulitis. Neuro: Awake and alert, GCS 15, oriented to person, place, time, and situation. Cranial nerves II-XII grossly intact. Motor strength 5/5 in all extremities. Sensory grossly intact. Cerebellar exam normal. Normal gait. Psych: Awake, alert, with orientation to person, place and time. Behavior, mood, and affect are within normal limits. 11:23 Musculoskeletal/extremity: Extremities: noted in the left leg: decreased ROM, pain, swelling, tenderness. Vital Signs: 11:08 BP 155 / 92; Pulse 91; Resp 16; Temp 97.8; Pulse Ox 100% on R/A; Weight 129.73 kg; hb Height 5 ft. 11 in. (180.34 cm); Pain 8/10; 12:30 BP 157 / 91; Pulse 78; Resp 17; Pulse Ox 99% on R/A; tw2 13:30 BP 148 / 88; Pulse 71; Resp 16; Pulse Ox 99% on R/A; tw2 15:01 BP 144 / 84; Pulse 78; Resp 17; Pulse Ox 99% on R/A; tw2 11:08 Body Mass Index 39.89 (129.73 kg, 180.34 cm) hb MDM: 11:15 Patient medically screened. kobi 11:22 Patient medically screened. [facility] 11:25 Data reviewed: vital signs, nurses notes, lab test result(s), EKG, radiologic studies, kobi plain films. 11/16 11:23 Order name: Basic Metabolic Panel; Complete Time: 12:27 [facility] 11/16 11:23 Order name: CBC with Diff; Complete Time: 12: [facility] 11/16 11:23 Order name: LFT's; Complete Time: 12:27 [facility] 11/16 11:23 Order name: Magnesium; Complete Time: 12:27 [facility] 11/16 11:23 Order name: NT PRO-BNP; Complete Time: 12:27 [facility] 11/16 11:23 Order name: PT-INR; Complete Time: 12:01 [facility] 11/16 11:23 Order name: Troponin (emerg Dept Use Only); Complete Time: 12:27 [facility] 11/16 11:23 Order name: XRAY Chest (1 view); Complete Time: 12:54 [facility] 11/16 11:23 Order name: US Extremity Venous W Compression Griffin; Complete Time: 12:27 [facility] 11/16 11:23 Order name: Lipase; Complete Time: 12:27 [facility] 11/16 11:27 Order name: CT Chest For PE Angio; Complete Time: 12:54 [facility] 11/16 15:16 Order name: Urine Dipstick--Ancillary (enter results) 11/16 11:23 Order name: EKG; Complete Time: 11:25 [facility] 11/16 11:23 Order name: Cardiac monitoring; Complete Time: 11:24 [facility] 11/16 11:23 Order name: EKG - Nurse/Tech; Complete Time: 11:44 [facility] 11/16 11:23 Order name: IV Saline Lock; Complete Time: : [facility] 11/16 11:23 Order name: Labs collected and sent; Complete Time: : [facility] 11/16 11:23 Order name: O2 Per Protocol; Complete Time: 11:24 [facility] 11/16 11:23 Order name: O2 Sat Monitoring; Complete Time: 11: [facility] 11/16 11:23 Order name: Urine Dipstick-Ancillary (obtain specimen); Complete Time: 15:10 [facility] Administered Medications: 11:40 Drug: TORadol 30 mg Route: IVP; Site: right antecubital; tw2 12:30 Follow up: Response: No adverse reaction; Pain is unchanged, physician notified tw2 13:40 Not Given (Physician Discretion): Insulin Regular Human 10 units Sub-Q once ss 13:46 Drug: traMADol 50 mg Route: PO; ss 15:02 Follow up: Response: No adverse reaction; Pain is decreased tw2 13:47 Drug: Magnesium Sulfate 1 grams Route: IVPB; Infused Over: 1 hrs; Site: right ss antecubital; 15:02 Follow up: Response: No adverse reaction; IV Status: Completed infusion tw2 14:16 Not Given (Patient Refused): NS 0.9% 1000 ml IV at 125 ml/hr continuous tw2 Point of Care Testing: Blood Glucose: 13:39 Blood Glucose: 298 mg/dL; ss Ranges: Critical Glucose Levels:Adult <50 mg/dl or >400 mg/dl <40 mg/dl or >180 mg/dl Disposition: 11/16/18 12:55 Discharged to Home. Impression: Pain in left leg, Type 2 diabetes mellitus, Hypomagnesemia. - Condition is Stable. - Discharge Instructions: Type 2 Diabetes Mellitus, Diagnosis, Adult, Hypomagnesemia, Musculoskeletal Pain, Type 2 Diabetes Mellitus, Diagnosis, Adult, [id number]. - Prescriptions for Eliquis 5 mg Oral tablet - take 1 tablet by ORAL route 2 times per day; 30 tablet. Tramadol 50 mg Oral Tablet - take 1 tablet by ORAL route every 8 hours as needed; 30 tablet. - Medication Reconciliation Form, Thank You Letter, Antibiotic Education, Prescription Opioid Use, Work release form form. - Follow up: Private Physician; When: 2 - 3 days; Reason: Recheck today's complaints, Continuance of care, Re-evaluation by your physician. Follow up: Milan Flores; When: 2 - 3 days; Reason: Recheck today's complaints, Continuance of care, Re-evaluation by your physician. - Problem is new. - Symptoms have improved. Signatures: Dispatcher [employer] EDMS Kyaw Rivera MD MD cha Smirch, Shelby, RN RN Carey Sigala RN RN Zaina Bhatia RN RN Amie Gallagher RN RN tw2 Corrections: (The following items were deleted from the chart) 15:17 12:55 11/16/2018 12:55 Discharged to Home. Impression: Pain in left leg; Type 2 tw2 diabetes mellitus; Hypomagnesemia. Condition is Stable. Discharge Instructions: Type 2 Diabetes Mellitus, Diagnosis, Adult, Hypomagnesemia, Musculoskeletal Pain, Type 2 Diabetes Mellitus, Diagnosis, Adult, [id number]. Prescriptions for Eliquis 5 mg Oral tablet - take 1 tablet by ORAL route 2 times per day; 30 tablet, Tylenol-Codeine #3 300-30 mg Oral Tablet - take 2 tablets by ORAL route every 6 hours As needed; 20 tablet. and Forms are Medication Reconciliation Form, Thank You Letter, Antibiotic Education, Prescription Opioid Use. Follow up: Private Physician; When: 2 - 3 days; Reason: Recheck today's complaints, Continuance of care, Re-evaluation by your physician. Follow up: Milan Flores; When: 2 - 3 days; Reason: Recheck today's complaints, Continuance of care, Re-evaluation by your physician. Problem is new. Symptoms have improved. kobi
[2018-11-16] MEDS ORDERED: TRAMADOL HCL 50 MG TAB ONE (13:58)
[2018-11-16] MEDS ORDERED: MAGNESIUM SULFATE 1 gm IVPB 1 GM/100 ML BAG IV ONE (13:58)
[2018-11-16 17:11] LABS: Urine Blood NEGATIVE (NEG); Urine Glucose 2+ (NEG); Urine Protein NEGATIVE (NEG); Urine Specific Gravity <1.005 (1.005-1.030); Urine pH 6.5 (5.0-7.0)
[2018-11-16 19:57] VITALS: TEMP 97.8
[2018-11-16 19:58] VITALS: O2SAT 99
[2018-11-16 20:01] VITALS: BP 144/84
== END 2018-11-16 15:17 | disposition home or self-care (01) ==
LOC: ER 11:00
DX: M79.605 Pain in left leg (principal); E11.9 Type 2 diabetes mellitus without complications; E83.42 Hypomagnesemia; Z86.718 Personal history of other venous thrombosis and embolism; Z79.01 Long term (current) use of anticoagulants
CPT/HCPCS: 36415; 71045; 71275; 80048; 80076; 81003; 82962; 83690; 83735; 83880; 84484; 85025; 85610; 93005; 93970; 96365; 96375; 99285; J3475; Q9967

== ENCOUNTER 2018-11-23 08:28 | Emergency (ER) | payer SELFPAY ==
[2018-11-23] MEDS ORDERED: GABAPENTIN 300 MG CAP ONE (09:55)
--- NOTE | 2018-11-23 10:32 | RAD REPORT ---
EXAM DESCRIPTION: US - Extremity Venous Uni Ltd - 11/23/2018 10:10 am CLINICAL HISTORY: PAIN Leg swelling and edema. COMPARISON: Extrem Venous W Compress Griffin dated 11/16/2018 FINDINGS: Left lower extremity venous system was interrogated with Doppler technique. Normal flow, c ompressibility and augmentation was noted. There is no DVT present.Small amount old thrombus which ma y be present in the left popliteal vein, along the wall. IMPRESSION: No evidence of acute left lower extremity deep venous thrombosis. Evidence of mild old r ecannulized thrombus along the wall of the popliteal vein noted.
--- NOTE | 2018-11-23 10:39 | ER ---
Nurse's Notes [facility] Name: Dustin Granados Jr Age: 33 yrs Sex: Male : 1985 Arrival Date: 11/23/2018 Time: 08:32 Bed 14 Private MD: Milan Flores V Diagnosis: Pain in left leg;Type 2 diabetes mellitus Presentation: 11/23 08:47 Presenting complaint: Patient states: i am still having LEFT leg pain in my calf, i was tw2 here on Thursday and had a prescription for tramadol but it just isnt working, i got the compression sock and they have helped reduce the swelling but its the pain i just cant deal with. Transition of care: patient was not received from another setting of care. Onset of symptoms was November 23, 2018. Risk Assessment: Do you want to hurt yourself or someone else? Patient reports no desire to harm self or others. Initial Sepsis Screen: Does the patient meet any 2 criteria? No. Patient's initial sepsis screen is negative. Does the patient have a suspected source of infection? No. Patient's initial sepsis screen is negative. Care prior to arrival: None. 08:47 Method Of Arrival: Ambulatory tw2 08:47 Acuity: NICHOLE 3 tw2 Triage Assessment: 08:48 General: Appears in no apparent distress. Behavior is calm, cooperative, appropriate tw2 for age. Pain: Complains of pain in left calf. EENT: No signs and/or symptoms were reported regarding the EENT system. Neuro: Level of Consciousness is awake, alert, obeys commands, Oriented to person, place, time, situation. Cardiovascular: Heart tones S1 S2 Patient's skin is warm and dry. Respiratory: Airway is patent Respiratory effort is even, unlabored, Respiratory pattern is regular, symmetrical, Breath sounds are clear bilaterally. GI: No signs and/or symptoms were reported involving the gastrointestinal system. : No signs and/or symptoms were reported regarding the genitourinary system. Derm: No signs and/or symptoms reported regarding the dermatologic system. Musculoskeletal: Circulation, motion, and sensation intact. Range of motion: intact in all extremities, Reports pain in left leg. Historical: - Allergies: 08:51 No Known Drug Allergies; tw2 - Home Meds: 08:51 Eliquis 5 mg Oral tab 1 tab 2 times per day [Active]; tw2 - PMHx: 08:51 Myocardial infarction; left leg DVT; Diabetes - NIDDM; tw2 - PSHx: 08:51 Knee surgery; tw2 - Immunization history:: Adult Immunizations. - Social history:: Smoking status: . - Ebola Screening: : Patient denies travel to an Ebola-affected area in the 21 days before illness onset. - Family history:: not pertinent. Screenin:52 Abuse screen: Denies threats or abuse. Nutritional screening: No deficits noted. tw2 Tuberculosis screening: No symptoms or risk factors identified. Fall Risk None identified. Assessment: 08:52 Reassessment: see triage assessment. tw2 Vital Signs: 08:49 BP 155 / 94; Pulse 89; Resp 18; Temp 99(O); Pulse Ox 99% on R/A; Pain 8/10; tw2 08:50 Weight 129 kg (R); Height 5 ft. 11 in. (180.34 cm) (R); tw2 10:17 BP 140 / 91; Pulse 59; Resp 19; Pulse Ox 95% on R/A; ae4 08:50 Body Mass Index 39.66 (129.00 kg, 180.34 cm) tw2 ED Course: 08:32 Patient arrived in ED. mr 08:32 Milan Flores MD is Private Physician. mr 08:37 Kyaw Rivera MD is Attending Physician. kobi 08:47 Amie Gallagher RN is Primary Nurse. tw2 08:48 Triage completed. tw2 08:50 Arm band placed on. tw2 08:52 Bed in low position. Call light in reach. Pulse ox on. NIBP on. tw2 09:50 Radiology exam delayed due to PT IN ULTRASOUND. jb2 10:05 Report given to FENG Monreal - OUTSTANDING - xray and us at this time. tw2 10:12 US Extremity Venous Unilateral Ltd In Process Unspecified. EDMS 10:17 Patient moved back from ultrasound. ae4 10:37 X-ray completed. Portable x-ray completed in exam room. Patient tolerated procedure jb2 well. 10:39 Milan Flores MD is Referral Physician. kobi 10:41 Foot Left 3 View XRAY In Process Unspecified. EDMS 10:41 Ankle Left 3 View XRAY In Process Unspecified. EDMS 10:41 Tib Fib Left XRAY In Process Unspecified. EDMS 10:58 No provider procedures requiring assistance completed. Patient did not have IV access ae4 during this emergency room visit. Administered Medications: 09:45 Drug: Gabapentin 600 mg Route: PO; tw2 11:00 Follow up: Response: Pain is decreased ae4 Point of Care Testing: Blood Glucose: 09:51 Blood Glucose: 340 mg/dL; tw2 09:51 per Zia Suh tw2 Ranges: Outcome: 10:39 Discharge ordered by MD. peace 10:59 Discharged to home ambulatory. ae4 10:59 Condition: stable 10:59 Discharge instructions given to patient, Instructed on discharge instructions, follow up and referral plans. medication usage, Maintaining healthy, therapeutic glucose levels. Demonstrated understanding of instructions, Prescriptions given X 2. 11:16 Patient left the ED. ae4 Signatures: Dispatcher [employer] EDMS Kyaw Rivera MD MD cha Rivera, Mary mr Garcia, Neftali jb2 Amie Gallagher, RN RN tw2 Quentin Harrington RN RN ae4 Corrections: (The following items were deleted from the chart) 10:17 10:14 Patient moved back from AR. ae4 ae4
--- NOTE | 2018-11-23 10:40 | EDPHYS ---
Physician Documentation [facility] Name: Dustin Granados Jr Age: 33 yrs Sex: Male : 1985 Arrival Date: 11/23/2018 Time: 08:32 Bed 14 Private MD: Milan Flores V ED Physician Kyaw Rivera HPI: 11/23 09:34 This 33 yrs old Black Male presents to ER via Ambulatory with complaints of Leg Pain. kobi 09:34 The patient presents with decreased range of motion, pain. The complaints affect the kobi lateral aspect of left calf, left lateral ankle, lateral aspect of left foot, left calf, left Achilles, left heel, left medial ankle, medial aspect of left foot, left giles, anterior aspect of left ankle and dorsum of left foot. Context: The problem was sustained at an unknown site. Onset: The symptoms/episode began/occurred 2 week(s) ago. Modifying factors: The symptoms are alleviated by nothing. Associated signs and symptoms: The patient has no apparent associated signs or symptoms. Treatment prior to arrival includes: prescription medications, codeine. Severity of symptoms: At their worst the symptoms were. The patient has experienced similar episodes in the past. Historical: - Allergies: 08:51 No Known Drug Allergies; tw2 - Home Meds: 08:51 Eliquis 5 mg Oral tab 1 tab 2 times per day [Active]; tw2 - PMHx: 08:51 Myocardial infarction; left leg DVT; Diabetes - NIDDM; tw2 - PSHx: 08:51 Knee surgery; tw2 - Immunization history:: Adult Immunizations. - Social history:: Smoking status: . - Ebola Screening: : Patient denies travel to an Ebola-affected area in the 21 days before illness onset. - Family history:: not pertinent. ROS: 09:34 Constitutional: Negative for fever, chills, and weight loss, Eyes: Negative for injury, kobi pain, redness, and discharge, ENT: Negative for injury, pain, and discharge, Neck: Negative for injury, pain, and swelling, Cardiovascular: Negative for chest pain, palpitations, and edema, Respiratory: Negative for shortness of breath, cough, wheezing, and pleuritic chest pain, Abdomen/GI: Negative for abdominal pain, nausea, vomiting, diarrhea, and constipation, Back: Negative for injury and pain, : Negative for injury, bleeding, discharge, and swelling, Skin: Negative for injury, rash, and discoloration, Neuro: Negative for headache, weakness, numbness, tingling, and seizure, Psych: Negative for depression, anxiety, suicide ideation, homicidal ideation, and hallucinations, Allergy/Immunology: Negative for hives, rash, and allergies, Endocrine: Negative for neck swelling, polydipsia, polyuria, polyphagia, and marked weight changes, Hematologic/Lymphatic: Negative for swollen nodes, abnormal bleeding, and unusual bruising. 09:34 MS/extremity: Positive for tenderness. Exam: 09:34 Constitutional: This is a well developed, well nourished patient who is awake, alert, kobi and in no acute distress. Head/Face: Normocephalic, atraumatic. Eyes: Pupils equal round and reactive to light, extra-ocular motions intact. Lids and lashes normal. Conjunctiva and sclera are non-icteric and not injected. Cornea within normal limits. Periorbital areas with no swelling, redness, or edema. ENT: Nares patent. No nasal discharge, no septal abnormalities noted. Tympanic membranes are normal and external auditory canals are clear. Oropharynx with no redness, swelling, or masses, exudates, or evidence of obstruction, uvula midline. Mucous membranes moist. Neck: Trachea midline, no thyromegaly or masses palpated, and no cervical lymphadenopathy. Supple, full range of motion without nuchal rigidity, or vertebral point tenderness. No Meningismus. Chest/axilla: Normal chest wall appearance and motion. Nontender with no deformity. No lesions are appreciated. Cardiovascular: Regular rate and rhythm with a normal S1 and S2. No gallops, murmurs, or rubs. Normal PMI, no JVD. No pulse deficits. Respiratory: Lungs have equal breath sounds bilaterally, clear to auscultation and percussion. No rales, rhonchi or wheezes noted. No increased work of breathing, no retractions or nasal flaring. Abdomen/GI: Soft, non-tender, with normal bowel sounds. No distension or tympany. No guarding or rebound. No evidence of tenderness throughout. Back: No spinal tenderness. No costovertebral tenderness. Full range of motion. Male : Normal genitalia with no discharge or lesions. Skin: Warm, dry with normal turgor. Normal color with no rashes, no lesions, and no evidence of cellulitis. Neuro: Awake and alert, GCS 15, oriented to person, place, time, and situation. Cranial nerves II-XII grossly intact. Motor strength 5/5 in all extremities. Sensory grossly intact. Cerebellar exam normal. Normal gait. Psych: Awake, alert, with orientation to person, place and time. Behavior, mood, and affect are within normal limits. 09:34 Musculoskeletal/extremity: Extremities: noted in the left leg: decreased ROM, pain. Vital Signs: 08:49 BP 155 / 94; Pulse 89; Resp 18; Temp 99(O); Pulse Ox 99% on R/A; Pain 8/10; tw2 08:50 Weight 129 kg (R); Height 5 ft. 11 in. (180.34 cm) (R); tw2 10:17 BP 140 / 91; Pulse 59; Resp 19; Pulse Ox 95% on R/A; ae4 08:50 Body Mass Index 39.66 (129.00 kg, 180.34 cm) tw2 MDM: 08:42 Patient medically screened. [facility] 11/23 09:34 Order name: Foot Left 3 View XRAY [facility] 11/23 09:34 Order name: Ankle Left 3 View XRAY [facility] 11/23 09:34 Order name: Tib Fib Left XRAY [facility] 11/23 09:37 Order name: US Extremity Venous Unilateral Ltd; Complete Time: 10:37 [facility] 11/23 09:41 Order name: Blood Glucose Level; Complete Time: 09:52 [facility] Administered Medications: 09:45 Drug: Gabapentin 600 mg Route: PO; tw2 11:00 Follow up: Response: Pain is decreased ae4 Point of Care Testing: Blood Glucose: 09:51 Blood Glucose: 340 mg/dL; tw2 09:51 per Zia Suh tw2 Ranges: Critical Glucose Levels:Adult <50 mg/dl or >400 mg/dl <40 mg/dl or >180 mg/dl Disposition: 11/23/18 10:39 Discharged to Home. Impression: Pain in left leg, Type 2 diabetes mellitus. - Condition is Stable. - Discharge Instructions: Type 2 Diabetes Mellitus, Diagnosis, Adult, Musculoskeletal Pain, Pain Without a Known Cause, Diabetic Neuropathy, Type 2 Diabetes Mellitus, Diagnosis, Adult, [id number], Type 2 Diabetes Mellitus, Self Care, Adult. - Prescriptions for gabapentin 300 mg Oral capsule - take 1 capsule by ORAL route 3 times per day; 90 capsule. Tylenol- Codeine #3 300-30 mg Oral Tablet - take 2 tablet by ORAL route every 6 hours As needed; 30 tablet. - Medication Reconciliation Form, Thank You Letter, Antibiotic Education, Prescription Opioid Use, Work release form form. - Follow up: Milan Flores; When: 2 - 3 days; Reason: Recheck today's complaints, Continuance of care, Re-evaluation by your physician. - Problem is new. - Symptoms have improved. Signatures: Dispatcher [employer] EDMS Kyaw Rivera MD MD cha Wise, Tara RN RN tw2 Quentin Harrington RN RN ae4 Corrections: (The following items were deleted from the chart) 11:16 10:39 11/23/2018 10:39 Discharged to Home. Impression: Pain in left leg; Type 2 ae4 diabetes mellitus. Condition is Stable. Discharge Instructions: Type 2 Diabetes Mellitus, Diagnosis, Adult, Musculoskeletal Pain, Pain Without a Known Cause, Diabetic Neuropathy, Type 2 Diabetes Mellitus, Diagnosis, Adult, [id number], Type 2 Diabetes Mellitus, Self Care, Adult. Prescriptions for gabapentin 300 mg Oral capsule - take 1 capsule by ORAL route 3 times per day; 90 capsule, Tylenol-Codeine #3 300-30 mg Oral Tablet - take 2 tablet by ORAL route every 6 hours As needed; 30 tablet. and Forms are Work release form, Medication Reconciliation Form, Thank You Letter, Antibiotic Education, Prescription Opioid Use. Follow up: Milan Flores; When: 2 - 3 days; Reason: Recheck today's complaints, Continuance of care, Re-evaluation by your physician. Problem is new. Symptoms have improved. kobi
--- NOTE | 2018-11-23 10:51 | RAD REPORT ---
EXAM DESCRIPTION: RAD - Tib Fib Left - 11/23/2018 10:40 am CLINICAL HISTORY: PAIN Left calf pain and swelling COMPARISON: None FINDINGS: Left tibia/ fibula, ankle and foot- multiple projections are submitted. No bone or joint abnormalities detected. Small calcaneal spurs noted.
[2018-11-23 11:22] VITALS: TEMP 99
[2018-11-23 11:23] VITALS: BP 140/91; O2SAT 95
--- NOTE | 2018-11-24 13:15 | RAD REPORT ---
EXAM DESCRIPTION: RAD - Ankle Left 3 View - 11/23/2018 10:40 am CLINICAL HISTORY: PAIN Left calf pain and swelling COMPARISON: None FINDINGS: Left tibia/ fibula, ankle and foot- multiple projections are submitted. No bone or joint abnormalities detected. Small calcaneal spurs noted.
== END 2018-11-23 11:16 | disposition home or self-care (01) ==
LOC: ER 08:28
DX: E11.9 Type 2 diabetes mellitus without complications (principal); I25.2 Old myocardial infarction; Z86.718 Personal history of other venous thrombosis and embolism; Z79.01 Long term (current) use of anticoagulants
CPT/HCPCS: 82962; 93971; 99284

== ENCOUNTER 2018-12-14 10:54 | Emergency (ER) | payer SELFPAY ==
--- NOTE | 2018-12-14 12:56 | RAD REPORT ---
EXAM DESCRIPTION: RAD - Shoulder Right 2 View - 12/14/2018 12:49 pm CLINICAL HISTORY: PAIN COMPARISON: No comparisons FINDINGS: Mild AC joint and glenohumeral joint arthritic changes are present. No acute fracture or d islocation seen.
[2018-12-14] MEDS ORDERED: KETOROLAC 30 MG/ML INJ ONE (13:19)
[2018-12-14] MEDS ORDERED: ACETAMINOPHEN 500 MG TAB ONE (13:19)
--- NOTE | 2018-12-14 13:33 | RAD REPORT ---
EXAM DESCRIPTION: US - Extremity Venous Uni Ltd - 12/14/2018 1:26 pm CLINICAL HISTORY: Left left leg pain and swelling COMPARISON: DVT study November 23 TECHNIQUE: Real-time sonographic evaluation of the left lower extremity deep venous system was perfo rmed. FINDINGS: Normal compressibility, flow augmentation, phasic flow and spontaneous flow are identified in the left lower extremity common femoral, superficial femoral, popliteal and posterior tibial vein s. No acute intraluminal filling defects seen. Remnant echogenic thrombus in the left popliteal vein, partially recannulized, has not change from November 23. No evidence for propagation. IMPRESSION: No acute deep venous thrombosis in the left lower extremity. Old thrombus in the left popliteal vein similar to November 23.
--- NOTE | 2018-12-14 13:54 | EDPHYS ---
Physician Documentation [facility] Name: Dustin Granados Jr Age: 33 yrs Sex: Male : 1985 Arrival Date: 12/14/2018 Time: 10:57 Bed 23 Private MD: ED Physician Jorge Botello HPI: 12/14 13:47 This 33 yrs old Black Male presents to ER via Ambulatory with complaints of leg pain, kb shoulder pain, tingling. 13:47 The patient presents with pain, that is chronic, swelling, tenderness. The complaints kb affect the left leg. Context: The problem was sustained at home, resulted from an unknown cause, the patient can fully bear weight, the patient is able to ambulate. Modifying factors: The symptoms are alleviated by nothing. the symptoms are aggravated by movement. Associated signs and symptoms: Pertinent positives: calf tenderness, swelling, Pertinent negatives fever, nausea, numbness, rash, tingling, vomiting, warmth. Treatment prior to arrival includes: no previous treatment. Severity of symptoms: At their worst the symptoms were moderate, in the emergency department the symptoms are unchanged. The patient has experienced similar episodes in the past, chronically. The patient has not recently seen a physician. Pt reports right shoulder pain for a while. Denies injury or trauma. States it gets worse the more he moves it. Also c/o left leg pain that is chronic. States he has been given Tramadol in the past and it helps take the edge off, but it out. He was given tylenol #3 but doesn't want to take narcotics so he doesn't take that. Also reports tingling to fingertips and left foot that started a few days ago. Reports he has had the tingling in his hands before but never in his foot. Has history of DVT in left leg so he has swelling there that comes and goes. . Historical: - Allergies: 11:13 No Known Allergies; aj1 - Home Meds: 11:13 Glimepiride Oral [Active]; Eliquis 5 mg Oral tab 1 tab 2 times per day [Active]; blood aj1 pressure medication [Active]; - PMHx: 11:13 Diabetes - NIDDM; left leg DVT; Myocardial infarction; Hypertension; aj1 - Immunization history:: Flu vaccine is not up to date. - Social history:: Smoking status: Patient/guardian denies using tobacco. - Ebola Screening: : Patient denies travel to an Ebola-affected area in the 21 days before illness onset. ROS: 13:41 Constitutional: Negative for fever, chills, and weight loss, Cardiovascular: Negative kb for chest pain, palpitations, and edema, Respiratory: Negative for shortness of breath, cough, wheezing, and pleuritic chest pain, Abdomen/GI: Negative for abdominal pain, nausea, vomiting, diarrhea, and constipation, Back: Negative for injury and pain, Skin: Negative for injury, rash, and discoloration. 13:41 MS/extremity: Positive for pain, tingling. 13:41 Neuro: Positive for tingling. Exam: 13:41 Constitutional: This is a well developed, well nourished patient who is awake, alert, kb and in no acute distress. Head/Face: Normocephalic, atraumatic. Neck: Trachea midline, no thyromegaly or masses palpated, and no cervical lymphadenopathy. Supple, full range of motion without nuchal rigidity, or vertebral point tenderness. No Meningismus. Chest/axilla: Normal chest wall appearance and motion. Nontender with no deformity. No lesions are appreciated. Cardiovascular: Regular rate and rhythm with a normal S1 and S2. No gallops, murmurs, or rubs. Normal PMI, no JVD. No pulse deficits. Respiratory: Lungs have equal breath sounds bilaterally, clear to auscultation and percussion. No rales, rhonchi or wheezes noted. No increased work of breathing, no retractions or nasal flaring. Abdomen/GI: Soft, non-tender, with normal bowel sounds. No distension or tympany. No guarding or rebound. No evidence of tenderness throughout. Back: No spinal tenderness. No costovertebral tenderness. Full range of motion. Skin: Warm, dry with normal turgor. Normal color with no rashes, no lesions, and no evidence of cellulitis. Neuro: Awake and alert, GCS 15, oriented to person, place, time, and situation. Cranial nerves II-XII grossly intact. Motor strength 5/5 in all extremities. Sensory grossly intact. Cerebellar exam normal. Normal gait. 13:41 Musculoskeletal/extremity: Extremities: grossly normal except: noted in the left calf: pain, swelling, tenderness, ROM: intact in all extremities, Circulation is intact in all extremities. Sensation intact. Weight bearing: able to fully bear weight, without difficulty. Vital Signs: 11:13 BP 154 / 78; Pulse 79; Resp 18; Temp 98.0; Pulse Ox 100% on R/A; Weight 126.55 kg (R); aj1 Height 5 ft. 11 in. (180.34 cm) (R); Pain 7/10; 11:13 Body Mass Index 38.91 (126.55 kg, 180.34 cm) aj1 MDM: 11:54 Patient medically screened. kb 13:41 Data reviewed: vital signs, nurses notes. Data interpreted: Pulse oximetry: on room air kb is 100 %. Interpretation: normal. Counseling: I had a detailed discussion with the patient and/or guardian regarding: the historical points, exam findings, and any diagnostic results supporting the discharge/admit diagnosis, radiology results, the need for outpatient follow up, a family practitioner, to return to the emergency department if symptoms worsen or persist or if there are any questions or concerns that arise at home. 13:51 ED course: Pt has had gabapentin and said it doesn't help. Educated on need for follow kb up with PCP and neuro. Verbal understanding received. Requests a muscle relaxer to try. . 12/14 12:11 Order name: Shoulder Right (2 View) XRAY; Complete Time: 13:00 kb 12/14 12:49 Order name: US Extremity Venous Unilateral Ltd; Complete Time: 13:40 kb 12/14 13:32 Order name: Blood Glucose Level; Complete Time: 13:41 kb Administered Medications: 13:07 Drug: TORadol 60 mg Route: IM; Site: right gluteus; ca1 13:07 Drug: Tylenol 1000 mg Route: PO; ca1 Point of Care Testing: Blood Glucose: 13:41 Blood Glucose: 231 mg/dL; iw Ranges: Critical Glucose Levels:Adult <50 mg/dl or >400 mg/dl <40 mg/dl or >180 mg/dl Disposition: 14:34 Co-signature as Attending Physician, Jorge Botello MD. rn Disposition: 12/14/18 13:53 Discharged to Home. 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 - Condition is Stable. - Discharge Instructions: Arthritis, Neuropathic Pain, Shoulder Pain, [id number], Peripheral Neuropathy. - Prescriptions for Cyclobenzaprine 10 mg Oral Tablet - take 1 tablet by ORAL route every 8 hours As needed; 21 tablet. Tramadol 50 mg Oral Tablet - take 1 tablet by ORAL route every 8 hours as needed; 12 tablet. - Medication Reconciliation Form, Thank You Letter, Antibiotic Education, Prescription Opioid Use, Work release form form. - Follow up: Emergency Department; When: As needed; Reason: Worsening of condition. Follow up: Private Physician; When: 2 - 3 days; Reason: Recheck today's complaints, Continuance of care, Re-evaluation by your physician. Signatures: Dispatcher [employer] EDMS Rosita Littlejohn, CHLOÉ-C CERTIFIED TOWER CLIMBER-Cara Fonscea RN RN ajCorin Oneill RN RN iw Jorge Botello MD MD rn Acob, FENG Jewell RN ca1 Corrections: (The following items were deleted from the chart) 13:51 13:41 Musculoskeletal/extremity: Extremities: grossly normal except: noted in the left kb calf: pain, tenderness, ROM: intact in all extremities, Circulation is intact in all extremities. Sensation intact. Weight bearing: able to fully bear weight, without difficulty, kb 14:19 13:53 12/14/2018 13:53 Discharged to Home. 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 Condition is Stable. Forms are Medication Reconciliation Form, Thank You Letter, Antibiotic Education, Prescription Opioid Use. Follow up: Emergency Department; When: As needed; Reason: Worsening of condition. Follow up: Private Physician; When: 2 - 3 days; Reason: Recheck today's complaints, Continuance of care, Re-evaluation by your physician. kb
--- NOTE | 2018-12-14 13:54 | ER ---
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 I made an appointment with the doctor, but he doesn't have an opening until Thursday. My shoulders are hurting too. It just started yesterday. The tingling is like on and off, the doctor told me it was probably nerve damage because of my sugar". Transition of care: patient was not received from another setting of care. Onset of symptoms was December 13, 2018. Risk Assessment: Do you want to hurt yourself or someone else? Patient reports no desire to harm self or others. Initial Sepsis Screen: Does the patient meet any 2 criteria? No. Patient's initial sepsis screen is negative. Does the patient have a suspected source of infection? No. Patient's initial sepsis screen is negative. Care prior to arrival: None. 11:10 Method Of Arrival: Ambulatory aj1 11:10 Acuity: NICHOLE 3 aj1 Triage Assessment: 11:13 General: Appears in no apparent distress. uncomfortable, Behavior is calm, cooperative, aj1 appropriate for age. Pain: Complains of pain in left trapezius, right trapezius and left leg Pain currently is 7 out of 10 on a pain scale. Neuro: Level of Consciousness is awake, alert, obeys commands, Oriented to person, place, time, situation. Cardiovascular: Patient's skin is warm and dry. Respiratory: Airway is patent Respiratory effort is even, unlabored, Respiratory pattern is regular, symmetrical. Historical: - Allergies: 11:13 No Known Allergies; aj1 - Home Meds: 11:13 Glimepiride Oral [Active]; Eliquis 5 mg Oral tab 1 tab 2 times per day [Active]; blood aj1 pressure medication [Active]; - PMHx: 11:13 Diabetes - NIDDM; left leg DVT; Myocardial infarction; Hypertension; aj1 - Immunization history:: Flu vaccine is not up to date. - Social history:: Smoking status: Patient/guardian denies using tobacco. - Ebola Screening: : Patient denies travel to an Ebola-affected area in the 21 days before illness onset. Screenin:18 Abuse screen: Denies threats or abuse. Denies injuries from another. Nutritional iw screening: No deficits noted. Tuberculosis screening: No symptoms or risk factors identified. Fall Risk None identified. Assessment: 12:30 General: Appears in no apparent distress. comfortable, Behavior is calm, cooperative. iw Pain: Complains of pain in left calf and left leg and right trapezius and left trapezius. Neuro: Level of Consciousness is awake, alert, obeys commands, Moves all extremities. Cardiovascular: Patient's skin is warm and dry. Respiratory: Respiratory effort is even, unlabored, Respiratory pattern is regular. GI: No signs and/or symptoms were reported involving the gastrointestinal system. Derm: Skin is intact, is healthy with good turgor. Musculoskeletal: Range of motion: intact in all extremities. Vital Signs: 11:13 BP 154 / 78; Pulse 79; Resp 18; Temp 98.0; Pulse Ox 100% on R/A; Weight 126.55 kg (R); aj1 Height 5 ft. 11 in. (180.34 cm) (R); Pain 7/10; 11:13 Body Mass Index 38.91 (126.55 kg, 180.34 cm) aj1 ED Course: 10:57 Patient arrived in ED. rg4 11:12 Triage completed. aj1 11:13 Arm band placed on Patient placed in waiting room, Patient notified of wait time. aj1 11:51 Rosita Littlejohn FNP-C is PHCP. kb 11:51 Jorge Botello MD is Attending Physician. kb 11:57 Corin Smith, FENG is Primary Nurse. iw 12:15 Patient has correct armband on for positive identification. iw 12:48 X-ray completed. Portable x-ray completed in exam room. Patient tolerated procedure mh1 well. 12:50 Shoulder Right (2 View) XRAY In Process Unspecified. EDMS 13:25 US Extremity Venous Unilateral Ltd In Process Unspecified. EDMS 14:18 No provider procedures requiring assistance completed. Patient did not have IV access iw during this emergency room visit. Administered Medications: 13:07 Drug: TORadol 60 mg Route: IM; Site: right gluteus; ca1 13:07 Drug: Tylenol 1000 mg Route: PO; ca1 Point of Care Testing: Blood Glucose: 13:41 Blood Glucose: 231 mg/dL; iw Ranges: Outcome: 13:53 Discharge ordered by MD. carrasco 14:18 Discharged to home ambulatory. iw 14:18 Condition: good 14:18 Discharge instructions given to patient, Instructed on discharge instructions, follow up and referral plans. medication usage, Demonstrated understanding of instructions, follow-up care, medications, Prescriptions given X 2. 14:19 Patient left the ED. iw Signatures: Dispatcher [employer] EDMS Rosita Littlejohn, STRAND FORMING MACHINE OPERATOR-C STRAND FORMING MACHINE OPERATOR-Ckb Cara Estrada, RN RN [email or web address] Nicol Beltrán 1 Corin Smith, RN RN iw Rohini Schulte4 Fanta Ramos RN RN ca1
[2018-12-14 14:30] VITALS: BP 154/78; TEMP 98; O2SAT 100
== END 2018-12-14 14:19 | disposition home or self-care (01) ==
LOC: ER 10:54
DX: I82.592 Chronic embolism and thrombosis of other specified deep vein of left lower extremity (principal); E08.40 Diabetes mellitus due to underlying condition with diabetic neuropathy, unspecified; M25.511 Pain in right shoulder; I10 Essential (primary) hypertension; I25.2 Old myocardial infarction; Z79.01 Long term (current) use of anticoagulants
CPT/HCPCS: 82962; 93971; 96372; 99283

== ENCOUNTER 2019-01-04 21:48 | Emergency (ER) | payer SELFPAY ==
[2019-01-04] MEDS ORDERED: NA CHLORIDE 0.9% 1,000 ML ONE (23:06)
[2019-01-04 23:12] LABS: Absolute Lymphocytes (CBC) 2.6 K/uL (0.7-4.9); Basophils % 1.1 % (0-1.3); Eosinophils % 2.1 % (0-4.4); Hematocrit 41.9 % (39.6-49.0); Lymphocytes % 31.1 % (15.3-44.8); MPV 8.5 fL (7.6-11.3); Monocytes % 7.3 % (3.3-12.3); RBC Red Blood Cell Count 4.89 M/uL (4.33-5.43)
[2019-01-04 23:18] LABS: BUN Blood Urea Nitrogen 10 mg/dL (7-18); Bicarbonate 25 mmol/L (21-32); Glucose Level 372 mg/dL (74-106); Potassium 4.3 mmol/L (3.5-5.1); Sodium Level 136 mmol/L (136-145)
[2019-01-04] MEDS ORDERED: INSULIN -REGULAR HUMAN 50 UNIT/0.5 ML ML ONE (23:21)
--- NOTE | 2019-01-05 01:08 | EDPHYS ---
Physician Documentation [facility] Name: Dustin Granados Jr Age: 33 yrs Sex: Male : 1985 Arrival Date: 01/04/2019 Time: 22:01 Bed 6 Private MD: Marvin [facility] ED Physician Jimi Pinot HPI: 01/04 22:31 This 33 yrs old Black Male presents to ER via Ambulatory with complaints of High Blood pkl Sugar. 22:31 The patient or guardian reports polyuria. Patient out of diabetes medications for 2 pkl weeks. Historical: - Allergies: 22:18 OTC insulin; tl2 - Home Meds: 22:18 Eliquis 5 mg Oral tab 1 tab 2 times per day [Active]; BLOOD PRESSURE MEDICATION tl2 [Active]; Glimepiride Oral [Active]; Tramadol Oral [Active]; - PMHx: 22:18 Diabetes - NIDDM; Hypertension; left leg DVT; Myocardial infarction; tl2 - PSHx: 22:18 None; tl2 - Immunization history:: Adult Immunizations up to date. - Social history:: Smoking status: Patient/guardian denies using tobacco. - Ebola Screening: : No symptoms or risks identified at this time. ROS: 22:31 Eyes: Negative for injury, pain, redness, and discharge, ENT: Negative for injury, pkl pain, and discharge, Neck: Negative for injury, pain, and swelling, Cardiovascular: Negative for chest pain, palpitations, and edema, Respiratory: Negative for shortness of breath, cough, wheezing, and pleuritic chest pain, Abdomen/GI: Negative for abdominal pain, nausea, vomiting, diarrhea, and constipation, Back: Negative for injury and pain. 22:31 : Positive for polyuria. 22:31 MS/extremity: Negative for acute changes. 22:31 Skin: Negative for rash. 22:31 Neuro: Negative for altered mental status. Exam: 22:33 Head/Face: Normocephalic, atraumatic. Eyes: Pupils equal round and reactive to light, pkl extra-ocular motions intact. Lids and lashes normal. Conjunctiva and sclera are non-icteric and not injected. Cornea within normal limits. Periorbital areas with no swelling, redness, or edema. ENT: Nares patent. No nasal discharge, no septal abnormalities noted. Tympanic membranes are normal and external auditory canals are clear. Oropharynx with no redness, swelling, or masses, exudates, or evidence of obstruction, uvula midline. Mucous membranes moist. Neck: Trachea midline, no thyromegaly or masses palpated, and no cervical lymphadenopathy. Supple, full range of motion without nuchal rigidity, or vertebral point tenderness. No Meningismus. Chest/axilla: Normal chest wall appearance and motion. Nontender with no deformity. No lesions are appreciated. Cardiovascular: Regular rate and rhythm with a normal S1 and S2. No gallops, murmurs, or rubs. Normal PMI, no JVD. No pulse deficits. Respiratory: Lungs have equal breath sounds bilaterally, clear to auscultation and percussion. No rales, rhonchi or wheezes noted. No increased work of breathing, no retractions or nasal flaring. Abdomen/GI: Soft, non-tender, with normal bowel sounds. No distension or tympany. No guarding or rebound. No evidence of tenderness throughout. Back: No spinal tenderness. No costovertebral tenderness. Full range of motion. Skin: Warm, dry with normal turgor. Normal color with no rashes, no lesions, and no evidence of cellulitis. MS/ Extremity: Pulses equal, no cyanosis. Neurovascular intact. Full, normal range of motion. Neuro: Awake and alert, GCS 15, oriented to person, place, time, and situation. Cranial nerves II-XII grossly intact. Motor strength 5/5 in all extremities. Sensory grossly intact. Cerebellar exam normal. Normal gait. Vital Signs: 22:18 BP 136 / 94; Pulse 90; Resp 18; Temp 98.6(O); Pulse Ox 97% on R/A; Weight 122.47 kg; tl2 Height 5 ft. 11 in. (180.34 cm); Pain 0/10; 23:15 BP 124 / 85; Pulse 86; Resp 18; Pulse Ox 100% on R/A; Pain 0/10; aa1 01/05 00:45 BP 131 / 82; Pulse 87; Resp 18; Temp 98.3; Pulse Ox 99% on R/A; Pain 0/10; aa1 01/04 22:18 Body Mass Index 37.66 (122.47 kg, 180.34 cm) tl2 MDM: 01/04 22:23 Patient medically screened. [facility] 01/05 01:05 Data reviewed: vital signs, nurses notes, lab test result(s). [facility] 01/04 22:35 Order name: CBC with Diff; Complete Time: 00:22 pkl 01/04 22:35 Order name: Chem 7; Complete Time: 00:22 pkl 01/04 22:35 Order name: Hemoglobin A1c pk 01/04 22:36 Order name: Accucheck Blood Glucose; Complete Time: 22:48 pkl 01/04 22:57 Order name: Accucheck: q hourly; Complete Time: 23:00 pkl Administered Medications: 01/04 22:54 Drug: NS 0.9% 1000 ml Route: IV; Rate: 1000 ml; Site: right antecubital; [facility] 01/05 00:00 Follow up: IV Status: Completed infusion; IV Intake: 1000ml [facility] 01/04 23:08 Drug: Insulin Regular Human 10 units {Co-Signature: tr5 (Marcelo Palacios RN).} Route: aa1 IVP; Site: right antecubital; 01/05 00:10 Follow up: Response: No adverse reaction; Blood sugar is lowered aa1 Point of Care Testing: Blood Glucose: 01/04 22:54 Blood Glucose: 377 mg/dL; aa1 01/05 00:11 Blood Glucose: 169 mg/dL; aa1 00:50 Blood Glucose: 198 mg/dL; aa1 Ranges: Critical Glucose Levels:Adult <50 mg/dl or >400 mg/dl <40 mg/dl or >180 mg/dl Disposition: 01/05/19 01:07 Discharged to Home. Impression: Uncontrolled diabetes. - Condition is Stable. - Prescriptions for Glimepiride 4 mg Oral Tablet - take 1 tablet by ORAL route 2 times per day; 30 tablet. - Medication Reconciliation Form, Thank You Letter, Antibiotic Education, Prescription Opioid Use form. - Follow up: Private Physician; When: 2 - 3 days; Reason: Re-evaluation by your physician. - Problem is new. - Symptoms have improved. Signatures: Dispatcher [employer] Jasmyne Bentley RN RN aa1 Jimi Pinto MD MD pkRegina Cardona RN RN tl2 Marcelo Palacios RN tr5 Corrections: (The following items were deleted from the chart) 01:17 01:07 01/05/2019 01:07 Discharged to Home. Impression: Uncontrolled diabetes. Condition aa1 is Stable. Forms are Medication Reconciliation Form, Thank You Letter, Antibiotic Education, Prescription Opioid Use. Follow up: Private Physician; When: 2 - 3 days; Reason: Re-evaluation by your physician. Problem is new. Symptoms have improved. pkl
--- NOTE | 2019-01-05 01:08 | ER ---
Nurse's Notes [facility] Name: Dustin Granados Jr Age: 33 yrs Sex: Male : 1985 Arrival Date: 01/04/2019 Time: 22:01 Bed 6 Private MD: Mauricio Wong Diagnosis: Uncontrolled diabetes Presentation: 01/04 22:16 Presenting complaint: Patient states: High BGL for "awhile". Appt with on tl2 to discuss treatment. Pt c/o polyuria and tingling in fingers, BGL was [address]. Transition of care: patient was not received from another setting of care. Onset of symptoms was January 04, 2019. Risk Assessment: Do you want to hurt yourself or someone else? Patient reports no desire to harm self or others. Initial Sepsis Screen: Does the patient meet any 2 criteria? No. Patient's initial sepsis screen is negative. Does the patient have a suspected source of infection? No. Patient's initial sepsis screen is negative. Care prior to arrival: None. 22:16 Method Of Arrival: Ambulatory tl2 22:16 Acuity: NICHOLE 3 tl2 Historical: - Allergies: 22:18 OTC insulin; tl2 - Home Meds: 22:18 Eliquis 5 mg Oral tab 1 tab 2 times per day [Active]; BLOOD PRESSURE MEDICATION tl2 [Active]; Glimepiride Oral [Active]; Tramadol Oral [Active]; - PMHx: 22:18 Diabetes - NIDDM; Hypertension; left leg DVT; Myocardial infarction; tl2 - PSHx: 22:18 None; tl2 - Immunization history:: Adult Immunizations up to date. - Social history:: Smoking status: Patient/guardian denies using tobacco. - Ebola Screening: : No symptoms or risks identified at this time. Screenin:30 Abuse screen: Denies threats or abuse. Denies injuries from another. Nutritional aa1 screening: No deficits noted. Tuberculosis screening: No symptoms or risk factors identified. Fall Risk None identified. Assessment: 22:30 General: Appears in no apparent distress. comfortable, Behavior is calm, cooperative, aa1 appropriate for age. Pain: Denies pain. Neuro: Level of Consciousness is awake, alert, obeys commands, Oriented to person, place, time, situation, Moves all extremities. Full function Gait is steady, Speech is normal. Cardiovascular: Heart tones S1 S2 present Rhythm is regular. Respiratory: Airway is patent Respiratory effort is even, unlabored, Respiratory pattern is regular, symmetrical. GI: No signs and/or symptoms were reported involving the gastrointestinal system. : No signs and/or symptoms were reported regarding the genitourinary system. EENT: No signs and/or symptoms were reported regarding the EENT system. Derm: Skin is intact, is healthy with good turgor, Skin is pink, warm \\T\\ dry. Musculoskeletal: Circulation, motion, and sensation intact. Capillary refill < 3 seconds. 01/05 00:00 Reassessment: Patient appears in no apparent distress at this time. Patient and/or aa1 family updated on plan of care and expected duration. Pain level reassessed. Patient is alert, oriented x 3, equal unlabored respirations, skin warm/dry/pink. Awaiting provider reassessment Patient states feeling better. 01:15 Reassessment: Patient appears in no apparent distress at this time. Patient is alert, aa1 oriented x 3, equal unlabored respirations, skin warm/dry/pink. Discussed d/c \\T\\ f/u instructions with pt; denies questions or concerns at this time Patient denies pain at this time. Patient states feeling better. Vital Signs: 01/04 22:18 BP 136 / 94; Pulse 90; Resp 18; Temp 98.6(O); Pulse Ox 97% on R/A; Weight 122.47 kg; tl2 Height 5 ft. 11 in. (180.34 cm); Pain 0/10; 23:15 BP 124 / 85; Pulse 86; Resp 18; Pulse Ox 100% on R/A; Pain 0/10; aa1 01/05 00:45 BP 131 / 82; Pulse 87; Resp 18; Temp 98.3; Pulse Ox 99% on R/A; Pain 0/10; aa1 01/04 22:18 Body Mass Index 37.66 (122.47 kg, 180.34 cm) tl2 ED Course: 01/04 22:01 Patient arrived in ED. am2 22:01 Mauricio Wong DO is Private Physician. am2 22:17 Triage completed. tl2 22:18 Arm band placed on right wrist. tl2 22:23 Jimi Pinto MD is Attending Physician. pkl 22:30 Patient has correct armband on for positive identification. Bed in low position. Call aa1 light in reach. Pulse ox on. NIBP on. 22:48 Initial lab(s) drawn, by me, sent to lab. Inserted saline lock: 20 gauge in right aa1 antecubital area, using aseptic technique. Blood collected. 01/05 00:10 Jasmyne Champagne, RN is Primary Nurse. aa1 01:17 No provider procedures requiring assistance completed. IV discontinued, intact, aa1 bleeding controlled, No redness/swelling at site. Pressure dressing applied. Administered Medications: 01/04 22:54 Drug: NS 0.9% 1000 ml Route: IV; Rate: 1000 ml; Site: right antecubital; aa1 01/05 00:00 Follow up: IV Status: Completed infusion; IV Intake: 1000ml aa1 01/04 23:08 Drug: Insulin Regular Human 10 units {Co-Signature: tr5 (Marcelo Palacios RN).} Route: aa1 IVP; Site: right antecubital; 01/05 00:10 Follow up: Response: No adverse reaction; Blood sugar is lowered aa1 Point of Care Testing: Blood Glucose: 01/04 22:54 Blood Glucose: 377 mg/dL; aa1 01/05 00:11 Blood Glucose: 169 mg/dL; aa1 00:50 Blood Glucose: 198 mg/dL; aa1 Ranges: Intake: 00:00 IV: 1000ml; Total: 1000ml. aa1 Outcome: 01:07 Discharge ordered by . pkl 01:17 Discharged to home ambulatory. aa1 01:17 Condition: good 01:17 Discharge instructions given to patient, family, Instructed on discharge instructions, follow up and referral plans. medication usage, Demonstrated understanding of instructions, follow-up care, medications. 01:17 Patient left the ED. aa1 Signatures: Jasmyne Champagne RN RN aa1 Jimi Pinto MD MD pkl Knox, Taylor RN RN 2 Lakisha Carranza RN tr5
[2019-01-05 01:40] VITALS: BP 131/82; TEMP 98.3; O2SAT 99
== END 2019-01-05 01:17 | disposition home or self-care (01) ==
LOC: ER 21:48
DX: E11.65 Type 2 diabetes mellitus with hyperglycemia (principal); I10 Essential (primary) hypertension; I25.2 Old myocardial infarction; Z86.718 Personal history of other venous thrombosis and embolism; Z79.01 Long term (current) use of anticoagulants
CPT/HCPCS: 36415; 80048; 82962; 85025; 96361; 96374; 99284; J7030

== ENCOUNTER 2019-02-03 20:26 | Emergency (ER) | payer SELFPAY ==
--- OUTSIDE RECORDS SUMMARY | 2019-02-03 20:28 | XMS REPORT ---
:1985 Author Organization [employer] Care Team Providers Name Role Phone Mauricio Wong Provider Role Unavailable Allergies No Known Allergies Problems Problem Type Condition Code Onset Dates Condition Status Problem Recurrent deep vein thrombosis I82.402 Active (DVT) of left lower extremity Problem Other chronic pain G89.29 Active Problem Pain in right shoulder M25.511 Active Problem History of pulmonary embolism Z86.711 Active Problem Type 2 diabetes mellitus with other E11.69 Active specified complication, without long-term current use of insulin Problem HTN, goal below 130/80 I10 Active Problem Edema of left lower extremity R60.0 Active Problem Body mass index (BMI) of 40.1 to Z68.41 Active 44.9 in adult Medications No Known Medications Results No Known Results Summary Purpose eClinicalWorks Submission
--- OUTSIDE RECORDS SUMMARY | 2019-02-03 20:28 | XMS REPORT ---
:1985 Author Organization [employer] Care Team Providers Name Role Phone Mauricio Wong Provider Role Unavailable Allergies, Adverse Reactions, Alerts Substance Reaction Event Type N.K.D.A. Info Not Available Non Drug Allergy Problems Problem Type Condition Code Onset Dates Condition Status Assessment Type 2 diabetes mellitus with other E11.69 Active specified complication, without long-term current use of insulin Problem Recurrent deep vein thrombosis I82.402 Active [...] 40.1 to Z68.41 Active 44.9 in adult Assessment Body mass index (BMI) of 40.1 to Z68.41 Active 44.9 in adult Assessment Other chronic pain G89.29 Active Assessment History of pulmonary embolism Z86.711 Active Assessment Edema of left lower extremity R60.0 Active Assessment Recurrent deep vein thrombosis I82.402 Active (DVT) of left lower extremity Assessment Pain in right shoulder M25.511 Active Assessment HTN, goal below 130/80 I10 Active Medications Medication Code Code Instructions Start End Status Dosage System Date Date Eliquis 5 mg [facility] 59480603921 5 mg by mouth Active 1 tablet twice daily Losartan ND 40672996869 25 MG Orally Active 1 tablet Potassium Once a day Glimepiride ND 66097417882 4 MG Orally Active 1 tablet Once a day with breakfast or the first main meal of the day Results No Known Results Summary Purpose eClinicalWorks Submission
[2019-02-03] MEDS ORDERED: BUPIVACAINE 0.5% PF 10 ML VIAL ONE (21:14)
--- NOTE | 2019-02-03 22:02 | EDPHYS ---
Physician Documentation [facility] Name: Dustin Granados Jr Age: 33 yrs Sex: Male : 1985 Arrival Date: 02/03/2019 Time: 20:29 Bed 19 Private MD: ED Physician Chaitanya Pisano HPI: 02/03 21:38 This 33 yrs old Black Male presents to ER via Ambulatory with complaints of Toothache. tw4 21:38 The patient presents with broken tooth/teeth. The problem is located in the upper left tw4 second bicuspid. Onset: The symptoms/episode began/occurred today. Duration: The symptoms are continuous, and are unchanged since they started. Modifying factors: The symptoms are alleviated by nothing, the symptoms are aggravated by nothing. Severity of symptoms: At their worst the symptoms were moderate, in the emergency department the symptoms are unchanged. The patient has not experienced similar symptoms in the past. Historical: - Allergies: 21:25 OTC insulin; wh - Home Meds: 21:25 Eliquis 5 mg Oral tab 1 tab 2 times per day [Active]; Glimepiride Oral [Active]; wh losartan oral oral [Active]; - PMHx: 20:33 Diabetes - NIDDM; Hypertension; left leg DVT; Myocardial infarction; la1 - Immunization history:: Adult Immunizations up to date. - Social history:: Smoking status: Patient/guardian denies using tobacco. - Ebola Screening: : No symptoms or risks identified at this time. ROS: 21:38 Constitutional: Negative for fever, chills, and weight loss. tw4 21:38 Neck: Negative for injury, pain, and swelling, Cardiovascular: Negative for chest pain, palpitations, and edema, Respiratory: Negative for shortness of breath, cough, wheezing, and pleuritic chest pain, Abdomen/GI: Negative for abdominal pain, nausea, vomiting, diarrhea, and constipation, Back: Negative for injury and pain, MS/Extremity: Negative for injury and deformity, Skin: Negative for injury, rash, and discoloration. 21:38 ENT: Positive for Teeth pain Exam: 21:38 Constitutional: This is a well developed, well nourished patient who is awake, alert, tw4 and in no acute distress. Head/Face: Normocephalic, atraumatic. 21:38 ENT: Dental exam: fractured teeth are noted, specifically the upper left second bicuspid (#13). Vital Signs: 20:34 BP 143 / 87; Pulse 97; Resp 16; Temp 99.2(O); Pulse Ox 100% on R/A; Weight 129.73 kg; la1 Height 5 ft. 11 in. (180.34 cm); Pain 10/10; 21:28 BP 139 / 87; Pulse 98; Resp 18; Pulse Ox 100% on R/A; wh 22:13 BP 148 / 100; Pulse 82; Resp 18; Pulse Ox 98% on R/A; wh 20:34 Body Mass Index 39.89 (129.73 kg, 180.34 cm) la1 Procedures: 21:38 Nerve block: (dental) of left inferior alveolar nerve, Medication: Marcaine 0.5%, tw4 Amount: 5 mls were injected, Effect: the patient's symptoms are improved, moderately, Set up for procedure. Performed by Chaitanya Pisano MD Patient tolerated well. MDM: 20:43 Patient medically screened. tw4 Administered Medications: No medications were administered Disposition: 02/03/19 22:00 Discharged to Home. Impression: Dental caries, Fracture of tooth (traumatic). - Condition is Stable. - Discharge Instructions: Dental Caries, Adult, Dental Pain. - Prescriptions for Amoxicillin 500 mg Oral Capsule - take 1 capsule by ORAL route every 8 hours for 10 days; 30 tablet. Tramadol 50 mg Oral Tablet - take 1 tablet by ORAL route every 8 hours as needed; 12 tablet. - Medication Reconciliation Form, Thank You Letter, Antibiotic Education, Prescription Opioid Use form. - Follow up: Private Physician; When: Upon discharge from the Emergency Department; Reason: If symptoms return, Recheck today's complaints, Continuance of care. - Problem is new. - Symptoms have improved. Signatures: Papa Mckeon, RN RN la1 Toñito Duran Terrence, MD MD tw4 Corrections: (The following items were deleted from the chart) 21:26 20:33 Allergies: OTC insulin; [facility] 22:14 22:00 02/03/2019 22:00 Discharged to Home. Impression: Dental caries; Fracture of tooth wh (traumatic). Condition is Stable. Forms are Medication Reconciliation Form, Thank You Letter, Antibiotic Education, Prescription Opioid Use. Follow up: Private Physician; When: Upon discharge from the Emergency Department; Reason: If symptoms return, Recheck today's complaints, Continuance of care. Problem is new. Symptoms have improved. tw4
--- NOTE | 2019-02-03 22:02 | ER ---
Nurse's Notes [facility] Name: Dustin Granados Jr Age: 33 yrs Sex: Male : 1985 Arrival Date: 02/03/2019 Time: 20: Bed 19 Private MD: Diagnosis: Dental caries;Fracture of tooth (traumatic) Presentation: 02/03 20:33 Presenting complaint: Patient states: left upper dental pain for 2 days. Transition of la1 care: patient was not received from another setting of care. Onset of symptoms was February 03, 2019. Risk Assessment: Do you want to hurt yourself or someone else? Patient reports no desire to harm self or others. Initial Sepsis Screen: Does the patient meet any 2 criteria? No. Patient's initial sepsis screen is negative. Does the patient have a suspected source of infection? No. Patient's initial sepsis screen is negative. Care prior to arrival: None. 20:33 Method Of Arrival: Ambulatory la1 20:33 Acuity: NICHOLE 5 la1 Triage Assessment: 21:24 General: Appears in no apparent distress. 21:26 EENT: Reports. 21:28 General: Behavior is calm, cooperative, appropriate for age. Historical: - Allergies: 21:25 OTC insulin; - Home Meds: 21:25 Eliquis 5 mg Oral tab 1 tab 2 times per day [Active]; Glimepiride Oral [Active]; wh losartan oral oral [Active]; - PMHx: 20:33 Diabetes - NIDDM; Hypertension; left leg DVT; Myocardial infarction; la1 - Immunization history:: Adult Immunizations up to date. - Social history:: Smoking status: Patient/guardian denies using tobacco. - Ebola Screening: : No symptoms or risks identified at this time. Screenin:24 Abuse screen: Denies threats or abuse. Denies injuries from another. Nutritional screening: No deficits noted. Tuberculosis screening: No symptoms or risk factors identified. Fall Risk None identified. Assessment: 21:26 General: Appears in no apparent distress. Pain: Complains of pain in Left upper cheek Pain does not radiate. Pain currently is 10 out of 10 on a pain scale. Quality of pain is described as aching, Pain began 2-3 days ago. Neuro: Level of Consciousness is awake, alert, obeys commands. Cardiovascular: Heart tones S1 S2 Capillary refill < 3 seconds. Respiratory: Airway is patent Respiratory effort is even, unlabored, Respiratory pattern is regular, symmetrical. GI: Abdomen is flat, non-distended. : No signs and/or symptoms were reported regarding the genitourinary system. EENT: No signs and/or symptoms were reported regarding the EENT system. Derm: Skin is intact, is healthy with good turgor, Skin is pink, warm \T\ dry. normal. Musculoskeletal: Range of motion: intact in all extremities. 22:12 Reassessment: Patient appears in no apparent distress at this time. Patient and/or family updated on plan of care and expected duration. Pain level reassessed. Patient is alert, oriented x 3, equal unlabored respirations, skin warm/dry/pink. Patient states feeling better. Vital Signs: 20:34 BP 143 / 87; Pulse 97; Resp 16; Temp 99.2(O); Pulse Ox 100% on R/A; Weight 129.73 kg; la1 Height 5 ft. 11 in. (180.34 cm); Pain 10/10; 21:28 BP 139 / 87; Pulse 98; Resp 18; Pulse Ox 100% on R/A; wh 22:13 BP 148 / 100; Pulse 82; Resp 18; Pulse Ox 98% on R/A; wh 20:34 Body Mass Index 39.89 (129.73 kg, 180.34 cm) la1 ED Course: 20:29 Patient arrived in ED. ag3 20:33 Arm band placed on left wrist. la1 20:34 Triage completed. la1 20:41 Toñito Duran is Primary Nurse. 20:43 Chaitanya Pisano MD is Attending Physician. tw4 21:26 Patient has correct armband on for positive identification. Bed in low position. Call light in reach. Side rails up X 1. Pulse ox on. NIBP on. 22:13 No provider procedures requiring assistance completed. Patient did not have IV access during this emergency room visit. Administered Medications: No medications were administered Outcome: 22:00 Discharge ordered by . tw4 22:14 Discharged to home ambulatory. 22:14 Condition: good 22:14 Discharge instructions given to patient, Instructed on discharge instructions, follow up and referral plans. no drinking with medication, no driving heavy equipment, medication usage, POC Dental Carries Demonstrated understanding of instructions, follow-up care, medications, Prescriptions given X 2. 22:14 Patient left the ED. Signatures: Papa Mckeon RN RN la1 Toñito Duran Terrence, MD MD tw4 Felecia Connolly ag3 Corrections: (The following items were deleted from the chart) 21:26 20:33 Allergies: OTC insulin; lupillo
[2019-02-03 23:09] VITALS: BP 139/87; O2SAT 100
== END 2019-02-03 22:14 | disposition home or self-care (01) ==
LOC: ER 20:26
DX: S02.5XXA Fracture of tooth (traumatic), initial encounter for closed fracture (principal); K02.9 Dental caries, unspecified; I10 Essential (primary) hypertension; E11.9 Type 2 diabetes mellitus without complications; Z79.01 Long term (current) use of anticoagulants; Z88.8 Allergy status to other drugs, medicaments and biological substances; Z86.718 Personal history of other venous thrombosis and embolism
CPT/HCPCS: 99283

== ENCOUNTER 2019-03-14 12:06 | Emergency (ER) | payer SELFPAY ==
--- OUTSIDE RECORDS SUMMARY | 2019-03-14 12:08 | XMS REPORT ---
[...] Start End Status Dosage System Date Date Losartan [facility] [id number] 25 MG Orally Active 1 tablet Potassium Once a day Tramadol HCl ND 65763779004 50 MG Orally Feb 25, Mar 27, Active 1 tablet as BID PRN Pain 2018 2018 needed Glimepiride ND 65600614501 4 MG Orally BID Active 1 tablet with breakfast or the first main meal of the day Eliquis 5 mg ND 22834984865 5 mg by mouth Active 1 tablet twice daily Results No Known Results Summary Purpose eClinicalWorks Submission
[2019-03-14] MEDS ORDERED: NA CHLORIDE 0.9% 1,000 ML ONE (12:36)
[2019-03-14] MEDS ORDERED: ONDANSETRON 4 MG/2 ML VIAL ONE (12:50)
[2019-03-14 12:54] LABS: Absolute Lymphocytes (CBC) 2.1 K/uL (0.7-4.9); Basophils % 0.8 % (0-1.3); Hematocrit 42.5 % (39.6-49.0); Lymphocytes % 25.3 % (15.3-44.8); MPV 8.1 fL (7.6-11.3); RBC Red Blood Cell Count 4.97 M/uL (4.33-5.43)
[2019-03-14 13:14] LABS: ALT/SGPT 36 U/L (12-78); AST/SGOT 13 U/L (15-37); Albumin 3.8 g/dL (3.4-5.0); Alkaline Phosphatase 98 U/L (45-117); BUN Blood Urea Nitrogen 10 mg/dL (7-18); Bicarbonate 25 mmol/L (21-32); Bilirubin Direct 0.1 mg/dL (0-0.2); Bilirubin Total 0.5 mg/dL (0.2-1.0); Creatine Phosphokinase 270 U/L (39-308); Glucose Level 283 mg/dL (74-106); Lipase 124 U/L (73-393); Potassium 4.1 mmol/L (3.5-5.1); Protein, Total 7.9 g/dL (6.4-8.2); Sodium Level 138 mmol/L (136-145)
--- NOTE | 2019-03-14 15:08 | ER ---
Nurse's Notes [facility] Name: Dustin Granados Jr Age: 33 yrs Sex: Male : 1985 Arrival Date: 03/14/2019 Time: 12:10 Bed 14 Private MD: Mauricio Wong Diagnosis: Hyperglycemia, unspecified;Nausea Presentation: 03/14 12:17 Presenting complaint: Patient states: NAUSEA AND FATIGUE x1 MONTH. Transition of care: bp patient was not received from another setting of care. Onset of symptoms is unknown. Risk Assessment: Do you want to hurt yourself or someone else? Patient reports no desire to harm self or others. Initial Sepsis Screen: Does the patient meet any 2 criteria? No. Patient's initial sepsis screen is negative. Does the patient have a suspected source of infection? No. Patient's initial sepsis screen is negative. Care prior to arrival: None. 12:17 Method Of Arrival: Ambulatory bp 12:17 Acuity: NICHOLE 3 bp Historical: - Allergies: 12:18 No Known Drug Allergies; bp - Home Meds: 12:18 losartan Oral [Active]; Glimepiride Oral [Active]; Eliquis 5 mg Oral tab 1 tab 2 times bp per day [Active]; - PMHx: 12:18 Myocardial infarction; left leg DVT; Hypertension; Diabetes - NIDDM; bp - Immunization history:: Adult Immunizations up to date. - Social history:: Smoking status: Patient/guardian denies using tobacco. - Ebola Screening: : No symptoms or risks identified at this time. Screenin:59 Abuse screen: Denies threats or abuse. Denies injuries from another. Nutritional ph screening: No deficits noted. Tuberculosis screening: No symptoms or risk factors identified. Fall Risk None identified. Assessment: 12:57 General: Appears in no apparent distress. comfortable, obese, Behavior is calm, ph cooperative, appropriate for age, Reports fatigue for >3 days, Denies fever. Pain: Denies pain. Neuro: Level of Consciousness is awake, alert, obeys commands, Oriented to person, place, time, situation. Cardiovascular: Reports fatigue, nausea, Denies chest pain, lightheadedness, palpitations, shortness of breath, vomiting, Capillary refill < 3 seconds in bilateral fingers Patient's skin is warm and dry. Respiratory: Airway is patent Respiratory effort is even, unlabored, Respiratory pattern is regular, symmetrical. GI: Abdomen is flat, non-distended, Reports nausea, Patient currently denies abdominal pain, diarrhea, vomiting. Derm: Skin is intact, Skin is pink, warm \T\ dry. Musculoskeletal: Circulation, motion, and sensation intact. Range of motion: intact in all extremities. 14:28 Reassessment: Patient appears in no apparent distress at this time. Patient and/or ph family updated on plan of care and expected duration. Pain level reassessed. Patient is alert, oriented x 3, equal unlabored respirations, skin warm/dry/pink. Pt resting quietly, reports that nausea in is unchanged, noted to be drinking soda and eating chips, tolerating well at this time w/ no vomiting noted, family at bedside. Vital Signs: 12:18 BP 142 / 86; Pulse 89; Resp 16; Temp 97.6; Pulse Ox 99% ; Weight 132.9 kg; Height 5 ft. bp 11 in. (180.34 cm); 12:59 BP 132 / 78; Pulse 81; Resp 18; Pulse Ox 99% on R/A; ph 14:00 BP 130 / 87; Pulse 83; Resp 18; Pulse Ox 99% on R/A; ph 14:52 BP 121 / 90; Pulse 78; Resp 18; Pulse Ox 100% on R/A; ph 15:23 BP 126 / 89; Pulse 77; Resp 18; Temp 97.8; Pulse Ox 100% on R/A; ph 12:18 Body Mass Index 40.86 (132.90 kg, 180.34 cm) bp ED Course: 12:10 Patient arrived in ED. mr 12:10 Mauricio Wong DO is Private Physician. mr 12:17 Triage completed. bp 12:18 Arm band placed on. bp 12:21 Carey Sigala, FENG is Primary Nurse. ph 12:26 Daniel Mosqueda PA is PHCP. jmm 12:26 Kyaw Rivera MD is Attending Physician. jmm 12:59 Patient has correct armband on for positive identification. Bed in low position. Call ph light in reach. Side rails up X 1. Pulse ox on. NIBP on. Door closed. Noise minimized. Warm blanket given. 12:59 Inserted saline lock: 20 gauge in right antecubital area, using aseptic technique. ph Blood collected. 14:29 No provider procedures requiring assistance completed. ph 15:06 Mauricio Wong DO is Referral Physician. [facility] 15:17 EKG done, by cable technician. reviewed by Daniel GONCALVES. at1 15:22 IV discontinued, intact, bleeding controlled, No redness/swelling at site. Pressure ph dressing applied. Administered Medications: 12:56 Drug: NS 0.9% 1000 ml Route: IV; Rate: 1 bolus; Site: right antecubital; ph 14:27 Follow up: Response: No adverse reaction; IV Status: Completed infusion; IV Intake: ph 1000ml 12:57 Drug: Zofran 4 mg Route: IVP; Site: right antecubital; ph 14:28 Follow up: Response: No adverse reaction ph Intake: 14:27 IV: 1000ml; Total: 1000ml. ph Outcome: 15:07 Discharge ordered by . jmm 15:22 Discharged to home ambulatory. ph 15:22 Condition: good 15:22 Discharge instructions given to patient, Instructed on discharge instructions, follow up and referral plans. medication usage, Demonstrated understanding of instructions, follow-up care, medications, Prescriptions given X 1. 15:23 Patient left the ED. ph Signatures: Daniel Mosqueda PA PA [facility] Lila Chong Amanda, collar setter EKG Tat1 Carey Sigala, RN RN ph Sulaiman Bennett, RN RN bp
--- NOTE | 2019-03-14 15:09 | EDPHYS ---
Physician Documentation [facility] Name: Dustin Granados Jr Age: 33 yrs Sex: Male : 1985 Arrival Date: 03/14/2019 Time: 12:10 Bed 14 Private MD: Mauricio Wong ED Physician Kyaw Rivera HPI: 03/14 12:26 This 33 yrs old Black Male presents to ER via Ambulatory with complaints of Nausea, jmm Weakness. 12:26 The patient presents to the emergency department with nausea. Onset: The jmm symptoms/episode began/occurred gradually, 1 month(s) ago. Possible causes: unknown. The symptoms are aggravated by nothing. The symptoms are alleviated by nothing. This is a 33 year old male with a history of RI, HTN, DM that presents to the ED with complaints of nausea and fatigue for the past month. Denies abdominal pain, denies vomiting, denies diarrhea. . Historical: - Allergies: 12:18 No Known Drug Allergies; bp - Home Meds: 12:18 losartan Oral [Active]; Glimepiride Oral [Active]; Eliquis 5 mg Oral tab 1 tab 2 times bp per day [Active]; - PMHx: 12:18 Myocardial infarction; left leg DVT; Hypertension; Diabetes - NIDDM; bp - Immunization history:: Adult Immunizations up to date. - Social history:: Smoking status: Patient/guardian denies using tobacco. - Ebola Screening: : No symptoms or risks identified at this time. ROS: 12:26 Cardiovascular: Negative for chest pain, palpitations, and edema, Respiratory: Negative jmm for shortness of breath, cough, wheezing, and pleuritic chest pain. 12:26 Constitutional: Positive for fatigue. 12:26 Abdomen/GI: Positive for nausea. 12:26 All other systems are negative. Exam: 12:26 Constitutional: This is a well developed, well nourished patient who is awake, alert, jmm and in no acute distress. Head/Face: atraumatic. Eyes: EOMI, no conjunctival erythema appreciated ENT: Moist Mucus Membranes Neck: Trachea midline, Supple Chest/axilla: Normal chest wall appearance and motion. Cardiovascular: Regular rate and rhythm. No edema appreciated Respiratory: Normal respirations, no respiratory distress appreciated 12:26 Skin: General appearance color normal MS/ Extremity: Moves all extremities, no obvious deformities appreciated, no edema noted to the lower extremities Neuro: Awake and alert, normal gait Psych: Behavior is normal, Mood is normal, Patient is cooperative and pleasant 12:26 Abdomen/GI: Inspection: abdomen appears normal, Bowel sounds: normal, Palpation: abdomen is soft and non-tender. Vital Signs: 12:18 BP 142 / 86; Pulse 89; Resp 16; Temp 97.6; Pulse Ox 99% ; Weight 132.9 kg; Height 5 ft. bp 11 in. (180.34 cm); 12:59 BP 132 / 78; Pulse 81; Resp 18; Pulse Ox 99% on R/A; ph 14:00 BP 130 / 87; Pulse 83; Resp 18; Pulse Ox 99% on R/A; ph 14:52 BP 121 / 90; Pulse 78; Resp 18; Pulse Ox 100% on R/A; ph 15:23 BP 126 / 89; Pulse 77; Resp 18; Temp 97.8; Pulse Ox 100% on R/A; ph 12:18 Body Mass Index 40.86 (132.90 kg, 180.34 cm) bp MDM: 12:26 Patient medically screened. [facility] 15:05 Data reviewed: vital signs, nurses notes. Counseling: I had a detailed discussion with bertin the patient and/or guardian regarding: the historical points, exam findings, and any diagnostic results supporting the discharge/admit diagnosis, lab results, the need for outpatient follow up, to return to the emergency department if symptoms worsen or persist or if there are any questions or concerns that arise at home. ED course: Patient is alert and non toxic in appearance in the ED. Patient advised to follow up with pcp for reevaluation and DM medication adjustment. Patient was otherwise given strict return precautions. Patient understood and agrees with the plan of care. . 03/14 12:32 Order name: Basic Metabolic Panel; Complete Time: 13:19 [facility] 03/14 12:32 Order name: CBC with Diff; Complete Time: 13:02 [facility] 03/14 12:32 Order name: Creatinine for Radiology; Complete Time: 13:19 [facility] 03/14 12:32 Order name: Hepatic Function; Complete Time: 13:19 [facility] 03/14 12:32 Order name: Lipase; Complete Time: 13:19 [facility] 03/14 12:32 Order name: CPK; Complete Time: 13:19 [facility] 03/14 12:32 Order name: IV Saline Lock; Complete Time: 12:56 [facility] 03/14 12:32 Order name: Labs collected and sent; Complete Time: 12:56 [facility] 03/14 12:32 Order name: Urine Dipstick-Ancillary (obtain specimen); Complete Time: 14:28 [facility] 03/14 12:51 Order name: Troponin (emerg Dept Use Only); Complete Time: 13:29 [facility] 03/14 15:09 Order name: Urine Dipstick--Ancillary (enter results) 03/14 15:20 Order name: EKG Electrocardiogram [facility] 03/14 12:51 Order name: EKG - Nurse/Tech; Complete Time: 14:27 [facility] Administered Medications: 12:56 Drug: NS 0.9% 1000 ml Route: IV; Rate: 1 bolus; Site: right antecubital; ph 14:27 Follow up: Response: No adverse reaction; IV Status: Completed infusion; IV Intake: ph 1000ml 12:57 Drug: Zofran 4 mg Route: IVP; Site: right antecubital; ph 14:28 Follow up: Response: No adverse reaction ph Disposition: 03/15 08:35 Co-signature as Attending Physician, Kyaw Rivera MD I agree with the assessment and kobi plan of care. Disposition: 03/14/19 15:07 Discharged to Home. Impression: Hyperglycemia, unspecified, Nausea. - Condition is Stable. - Discharge Instructions: Hyperglycemia, Nausea, Adult. - Prescriptions for Zofran ODT 4 mg Oral tablet,disintegrating - place 1 tablet by TRANSLINGUAL route every 4-6 hours; 20 tablet. - Medication Reconciliation Form, Thank You Letter, Antibiotic Education, Prescription Opioid Use, Work release form form. - Follow up: Mauricio Wong, DO; When: 2 - 3 days; Reason: Recheck today's complaints, Continuance of care, Re-evaluation by your physician. Signatures: Dispatcher [employer] [facility] Kyaw Rivera MD MD cha Mickail, Joel, PA PA Carey Hernandez, FENG RN Sulaiman Salguero RN RN bp Corrections: (The following items were deleted from the chart) 03/14 15:23 15:07 03/14/2019 15:07 Discharged to Home. Impression: Hyperglycemia, unspecified; ph Nausea. Condition is Stable. Forms are Medication Reconciliation Form, Thank You Letter, Antibiotic Education, Prescription Opioid Use. Follow up: Mauricio Wong; When: 2 - 3 days; Reason: Recheck today's complaints, Continuance of care, Re-evaluation by your physician. bertin
--- NOTE | 2019-03-14 15:42 | EKG ---
Test Date: 2019-03-14 Test Time: 14:14:27 Kitchen Utility Associate: DANIEL MEASUREMENT RESULTS: Intervals: Rate: 71 WA: 152 QRSD: 80 QT: 374 QTc: 406 [place]: P: 44 WA: 152 QRS: 52 T: 33 INTERPRETIVE STATEMENTS: Normal sinus rhythm Normal ECG Compared to ECG 11/16/2018 11:39:56 Sinus arrhythmia no longer present Electronically Signed On 03-14-19 15:42:20 CDT by Aba Hatch
[2019-03-14 16:15] LABS: Urine Blood NEGATIVE (NEG); Urine Glucose 2+ (NEG); Urine Protein NEGATIVE (NEG); Urine pH 7.5 (5.0-7.0)
[2019-03-14 17:27] VITALS: O2SAT 100
[2019-03-14 17:28] VITALS: BP 126/89; TEMP 97.8
== END 2019-03-14 15:23 | disposition home or self-care (01) ==
LOC: ER 12:06
DX: E11.65 Type 2 diabetes mellitus with hyperglycemia (principal); I10 Essential (primary) hypertension; I25.2 Old myocardial infarction; Z79.01 Long term (current) use of anticoagulants; Z86.718 Personal history of other venous thrombosis and embolism
CPT/HCPCS: 36415; 80048; 80076; 81003; 82550; 83690; 84484; 85025; 93005; 96361; 96374; 99284; J2405; J7030

== ENCOUNTER 2019-04-13 13:59 | Emergency (ER) | payer SELFPAY ==
--- NOTE | 2019-04-13 15:13 | RAD REPORT ---
EXAM DESCRIPTION: RAD - Hand Left 3 View - 04/13/2019 3:05 pm CLINICAL HISTORY: hand injury COMPARISON: No comparisons FINDINGS: No bone or joint abnormality is detected.
--- NOTE | 2019-04-13 15:35 | EDPHYS ---
Physician Documentation [facility] Name: Dustin Granados Jr Age: 34 yrs Sex: Male : 1985 Arrival Date: 04/13/2019 Time: 14:01 Bed 27 Private MD: ED Physician Jeremy Her HPI: 04/13 14:27 This 34 yrs old Black Male presents to ER via Ambulatory with complaints of Hand Injury.[facility] 14:27 The patient or guardian reports pain. Onset: The symptoms/episode began/occurred jmm gradually, 6 week(s) ago. Modifying factors: The symptoms are alleviated by holding still, the symptoms are aggravated by movement. Associated signs and symptoms: Pertinent negatives: fever. This is a 34 year old male with a history of DM, HTN, that presents to the ED with complaints of left hand pain which began 6 weeks ago. Pain intensified today after inadvertently hitting it. Denies other known injury, . Historical: - Allergies: 14:08 No Known Allergies; hb - Home Meds: 14:08 Eliquis 5 mg Oral tab 1 tab 2 times per day [Active]; Glimepiride Oral [Active]; hb losartan Oral [Active]; - PMHx: 14:08 Diabetes - NIDDM; Hypertension; left leg DVT; Myocardial infarction; hb - Immunization history:: Adult Immunizations up to date. - Social history:: Smoking status: Patient/guardian denies using tobacco. - Ebola Screening: : No symptoms or risks identified at this time. ROS: 14:27 Constitutional: Negative for fever, chills, and weight loss, Cardiovascular: Negative jmm for chest pain, palpitations, and edema, Respiratory: Negative for shortness of breath, cough, wheezing, and pleuritic chest pain. 14:27 MS/extremity: Positive for pain. 14:27 All other systems are negative. Exam: 14:27 Constitutional: This is a well developed, well nourished patient who is awake, alert, jmm and in no acute distress. Head/Face: atraumatic. Eyes: EOMI, no conjunctival erythema appreciated ENT: Moist Mucus Membranes Neck: Trachea midline, Supple Chest/axilla: Normal chest wall appearance and motion. Cardiovascular: Regular rate and rhythm. No edema appreciated Respiratory: Normal respirations, no respiratory distress appreciated Abdomen/GI: Non distended, soft Back: Normal ROM Skin: General appearance color normal 14:27 Musculoskeletal/extremity: mild tenderness on palpation of the ulnar side of the left hand, no obvious deformity, from appreciated. compartments are soft, NVI. 14:27 Skin: Appearance: Color: normal in color. 14:27 Neuro: Orientation: is normal, Mentation: is normal, Memory: is normal, Gait: is steady. 14:27 Psych: Behavior/mood is pleasant, cooperative. Vital Signs: 14:08 BP 143 / 83; Pulse 88; Resp 16; Temp 98.3; Pulse Ox 100% on R/A; Weight 128.37 kg; hb Height 5 ft. 11 in. (180.34 cm); Pain 5/10; 14:08 Body Mass Index 39.47 (128.37 kg, 180.34 cm) hb MDM: 14:27 Patient medically screened. [facility] 15:31 Data reviewed: vital signs, nurses notes. Counseling: I had a detailed discussion with [facility] the patient and/or guardian regarding: the historical points, exam findings, and any diagnostic results supporting the discharge/admit diagnosis, radiology results, the need for outpatient follow up, to return to the emergency department if symptoms worsen or persist or if there are any questions or concerns that arise at home. ED course: xrays negative. patient is advised to follow up with hand surgery and otherwise given strict return precautions. patient understood and agrees with the plan of care. . 04/13 14:27 Order name: Hand Left 3 View XRAY; Complete Time: 15:25 [facility] Administered Medications: No medications were administered Disposition: 04/14 09:17 Co-signature as Attending Physician, Jeremy Her MD I agree with the assessment and kdr plan of care. Disposition: 04/13/19 15:34 Discharged to Home. Impression: Pain in left hand. - Condition is Stable. - Discharge Instructions: Musculoskeletal Pain, Hand Exercises. - Prescriptions for Ibuprofen 800 mg Oral Tablet - take 1 tablet by ORAL route every 12 hours As needed take with food; 20 tablet. - Work release form, Medication Reconciliation Form, Thank You Letter, Antibiotic Education, Prescription Opioid Use form. - Follow up: Guanakito Hernandez MD; When: 2 - 3 days; Reason: Recheck today's complaints, Continuance of care, Re-evaluation by your physician. Signatures: Dispatcher [employer] EDMS Jeremy Her MD MD kdr Mickail, Joel, PA PA jmm Baxter, Heather, RN RN Luis M Morales, FENG RN rv Corrections: (The following items were deleted from the chart) 04/13 15:55 15:34 04/13/2019 15:34 Discharged to Home. Impression: Pain in left hand. Condition is rv Stable. Forms are Medication Reconciliation Form, Thank You Letter, Antibiotic Education, Prescription Opioid Use. Follow up: Guanakito Hernandez; When: 2 - 3 days; Reason: Recheck today's complaints, Continuance of care, Re-evaluation by your physician. bertin
--- NOTE | 2019-04-13 15:35 | ER ---
Nurse's Notes [facility] Name: Dustin Granados Jr Age: 34 yrs Sex: Male : 1985 Arrival Date: 04/13/2019 Time: 14:01 Bed 27 Private MD: Diagnosis: Pain in left hand Presentation: 04/13 14:05 Presenting complaint: Left hand pain x 2 months, worse over last 2 days. Denies injury. hb Transition of care: patient was not received from another setting of care. Onset of symptoms was January 2019. Risk Assessment: Do you want to hurt yourself or someone else? Patient reports no desire to harm self or others. Care prior to arrival: None. 14:05 Method Of Arrival: Ambulatory hb 14:05 Acuity: NICHOLE 4 hb 14:24 Initial Sepsis Screen: Does the patient meet any 2 criteria? No. Patient's initial rv sepsis screen is negative. Does the patient have a suspected source of infection? No. Patient's initial sepsis screen is negative. Historical: - Allergies: 14:08 No Known Allergies; hb - Home Meds: 14:08 Eliquis 5 mg Oral tab 1 tab 2 times per day [Active]; Glimepiride Oral [Active]; hb losartan Oral [Active]; - PMHx: 14:08 Diabetes - NIDDM; Hypertension; left leg DVT; Myocardial infarction; hb - Immunization history:: Adult Immunizations up to date. - Social history:: Smoking status: Patient/guardian denies using tobacco. - Ebola Screening: : No symptoms or risks identified at this time. Screenin:24 Abuse screen: Denies threats or abuse. Denies injuries from another. Nutritional rv screening: No deficits noted. Tuberculosis screening: No symptoms or risk factors identified. Fall Risk None identified. Assessment: 14:22 General: Appears in no apparent distress. comfortable, Behavior is calm, cooperative. rv Pain: Complains of pain in left hand. Pain: Pain currently is 5 out of 10 on a pain scale. Neuro: Level of Consciousness is awake, alert, obeys commands, Oriented to person, place, time, situation. Cardiovascular: Patient's skin is warm and dry. Respiratory: Airway is patent. GI: No signs and/or symptoms were reported involving the gastrointestinal system. : No signs and/or symptoms were reported regarding the genitourinary system. EENT: No signs and/or symptoms were reported regarding the EENT system. Derm: Skin is intact. Musculoskeletal: Range of motion: intact in all extremities, Swelling absent Reports pain in left hand Pain is 5 out of 10 on a pain scale. Injury Description: unknown. Vital Signs: 14:08 BP 143 / 83; Pulse 88; Resp 16; Temp 98.3; Pulse Ox 100% on R/A; Weight 128.37 kg; hb Height 5 ft. 11 in. (180.34 cm); Pain 5/10; 14:08 Body Mass Index 39.47 (128.37 kg, 180.34 cm) hb ED Course: 14:01 Patient arrived in ED. as 14:06 Triage completed. hb 14:08 Arm band placed on. 14:16 Daniel Mosqueda PA is PHCP. [facility] 14:16 Jeremy Her MD is Attending Physician. [facility] 14:19 Luis M Mistry, FENG is Primary Nurse. rv 14:24 Patient has correct armband on for positive identification. Bed in low position. Call rv light in reach. Side rails up X 1. Pulse ox on. NIBP on. 15:06 Hand Left 3 View XRAY In Process Unspecified. EDMS 15:34 Guanakito Hernandez MD is Referral Physician. [facility] 15:55 No provider procedures requiring assistance completed. Patient did not have IV access rv during this emergency room visit. Administered Medications: No medications were administered Outcome: 15:34 Discharge ordered by . [facility] 15:55 Discharged to home ambulatory. rv 15:55 Condition: good 15:55 Discharge instructions given to patient, Instructed on discharge instructions, follow up and referral plans. medication usage, Demonstrated understanding of instructions, follow-up care, medications, Prescriptions given X 1. 15:55 Patient left the ED. rv Signatures: Dispatcher [employer] EDMS Daniel Mosqueda PA PA jmm Martinez, Amelia as Baxter, Heather, RN RN Luis M Mistry, FENG RN rv
[2019-04-13 16:05] VITALS: BP 143/83; TEMP 98.3; O2SAT 100
== END 2019-04-13 15:55 | disposition home or self-care (01) ==
LOC: ER 13:59
DX: M79.642 Pain in left hand (principal); E11.9 Type 2 diabetes mellitus without complications; I10 Essential (primary) hypertension; I82.402 Acute embolism and thrombosis of unspecified deep veins of left lower extremity
CPT/HCPCS: 99283

== ENCOUNTER 2020-09-28 18:26 | Emergency (ER) | payer SELFPAY ==
--- OUTSIDE RECORDS SUMMARY | 2020-09-28 18:29 | XMS REPORT | Continuity of Care Document ---
:1985 Author Organization [facility] t Address [facility] [place] [address] Care Team Providers Name Role Phone Gabbielexus Lavell LUEVANO Attending Clinician Problems This patient has no known problems. Allergies, Adverse Reactions, Alerts This patient has no known allergies or adverse reactions. Medications Ordered Filled Start Stop Current Ordering Indication Dosage Frequency Signature Comments Components Source Medication Medication Date Date Medication? Clinician (SIG) Name Name Lovastatin Lovastatin Yes Delmi [address] [facility] 4[facility]30 [facility] Lantus Lantus 0 Yes Delmi [address] [facility] SoloStar [facility]Star 4-21 [facility] Lantus Lantus Yes [facility]mi 32 [facility] Eliquis 5 Eliquis 5 Yes Delmi [address] [facility] mg mg [facility] Losartan Losartan Yes Delmi [address] Potassium Potassium [facility] Glimepiride Glimepiride Yes Delmi [address] [facility] Miguel with [facility] - breakfast [facility] or the l first main Outpati meal of ent the day Clinics Acetaminoph Acetaminoph Yes Delmi [address] [facility] en en Miguel as needed [facility] Procedures This patient has no known procedures. Encounters Start End Encounter Admission Attending Care Care Encounter Source Date/Time Date/Time Type Type Clinicians Facility Department ID 2020-07-16 2020-07-16 [facility] [id number] 16:22:00 20:29:00 [place] [id number] [place] [id number] [place] [id number] 2020-04-05 2020-04-05 [facility] [id number] 2020-03-28 2020-03-28 [facility] [id number] [facility] 2020-02-29 2020-02-29 [facility] [id number] [facility] [address] 15:00:00 15:00:00 [facility] [facility] Family [facility] l Medicine Outpati ent Clinics 2020-02-29 2020-02-29 [facility] [id number] [facility] 12:06:00 12:06:00 t [employer] [facility] Family Medicine l Medicine Outpati ent Clinics 2020-01-19 2020-01-19 [facility] [id number] [facility] 14:30:00 14:30:00 t [employer] [facility] Family Medicine l Medicine Outpati ent Clinics 2019-10-20 2019-10-20 [facility] [id number] [address] 14:45:00 14:45:00 t [employer] [facility] Family Medicine l Medicine Outpati ent Clinics 2019-10-11 2019-10-11 [facility] [id number] 14:20:00 14:20:00 t [facility] [facility] Medicine Outpati ent Clinics 2019-09-20 2019-09-20 [facility] [id number] [facility] 10:15:00 10:15:00 t [facility] Medicine Outpati ent Clinics 2019-09-19 2019-09-19 [facility] [id number] [address] 13:48:00 13:48:00 t [facility] Medicine Outpati ent Clinics 2019-02-25 2019-02-25 [facility] [id number] [address] 08:45:00 08:45:00 t [facility] Medicine Outpati ent Clinics 2019-01-12 2019-01-12 [facility] [id number] [address] 13:46:00 13:46:00 t [facility] Medicine Outpati ent Clinics 2019-01-06 2019-01-06 [facility] [id number] 13:30:00 13:30:00 t [facility] [facility] Medicine Outpati ent Clinics Results This patient has no known results.
[2020-09-28 19:28] LABS: Urine Blood Negative (Negative); Urine Glucose 2+ (Negative); Urine Protein Negative (Negative); Urine Specific Gravity >=1.030 (1.005-1.030)
[2020-09-28 20:49] LABS: Absolute Lymphocytes (CBC) 2.4 K/uL (0.7-4.9); Basophils % 1.1 % (0-1.3); Hematocrit 39.3 % (39.6-49.0); Lymphocytes % 27.2 % (15.3-44.8); MPV 7.8 fL (7.6-11.3); RBC Red Blood Cell Count 4.68 M/uL (4.33-5.43)
[2020-09-28 20:56] LABS: Protime INR 1.03
[2020-09-28] MEDS ORDERED: NA CHLORIDE 0.9% 1,000 ML ONE (21:11)
[2020-09-28 21:16] LABS: ALT/SGPT 40 U/L (12-78); AST/SGOT 16 U/L (15-37); Albumin 3.5 g/dL (3.4-5.0); Alkaline Phosphatase 114 U/L (45-117); BUN Blood Urea Nitrogen 11 mg/dL (7-18); Bicarbonate 26 mmol/L (21-32); Bilirubin Direct < 0.1 mg/dL (0-0.2); Bilirubin Total 0.3 mg/dL (0.2-1.0); Glucose Level 315 mg/dL (74-106); Magnesium 1.9 mg/dL (1.8-2.4); NT PRO-BNP 19 pg/mL (<125); Potassium 4.1 mmol/L (3.5-5.1); Protein, Total 7.2 g/dL (6.4-8.2); Sodium Level 139 mmol/L (136-145); Troponin (Emerg Dept Use Only) < 0.02 ng/mL (0.0-0.045)
--- NOTE | 2020-09-28 21:24 | RAD REPORT ---
EXAM DESCRIPTION: RAD - Chest Single View - 09/28/2020 9:10 pm CLINICAL HISTORY: numbness/tingling Chest pain. COMPARISON: Chest Single View dated 11/16/2018; Chest Single View dated 09/21/2017; Chest Single View d ated 07/21/2017 FINDINGS: Portable technique limits examination quality. The lungs are grossly clear. The heart is normal in size. No displaced fractures. IMPRESSION: No acute intrathoracic process suspected.
--- NOTE | 2020-09-28 22:20 | ER ---
Nurse's Notes [facility] Name: Dustin Granados Jr Age: 35 yrs Sex: Male : 1985 Arrival Date: 09/28/2020 Time: 18:29 Bed 28 Private MD: Diagnosis: Diabetes mellitus due to underlying condition with diabetic neuropathy, unspecified Presentation: 09/28 18:42 Chief complaint: Patient states: when i woke up today morning my hands and left leg rr5 feels tingling and numb. also my left gets blurry. I noticed when i pee i could not feel it. Coronavirus screen: Client denies travel out of the [place] in the last 14 days. At this time, the client does not indicate any symptoms associated with coronavirus-19. Ebola Screen: Patient negative for fever greater than or equal to 101.5 degrees Fahrenheit, and additional compatible Ebola Virus Disease symptoms Patient denies exposure to infectious person. Patient denies travel to an Ebola-affected area in the 21 days before illness onset. Initial Sepsis Screen: Does the patient meet any 2 criteria? No. Patient's initial sepsis screen is negative. Does the patient have a suspected source of infection? No. Patient's initial sepsis screen is negative. Risk Assessment: Do you want to hurt yourself or someone else? Patient reports no desire to harm self or others. Onset of symptoms was September 28, 2020. 18:42 Method Of Arrival: Ambulatory rr5 18:42 Acuity: NICHOLE 3 rr5 Triage Assessment: 21:20 General: Appears in no apparent distress. Pain: Denies pain. bb Historical: - Allergies: 18:51 No Known Allergies; rr5 - Home Meds: 18:51 Eliquis 5 mg Oral tab 1 tab 2 times per day [Active]; losartan Oral [Active]; Lantus rr5 100 unit/mL Sub-Q soln [Active]; 18:51 hydrocodone-acetaminophen 7.5-325 mg/15 mL Oral soln [Active]; rr5 - PMHx: 18:51 Diabetes - IDDM; Hypertension; left leg DVT; Myocardial infarction; rr5 - PSHx: 18:51 None; rr5 - Immunization history:: Adult Immunizations up to date. - Social history:: Smoking status: unknown Patient/guardian denies using alcohol, street drugs. Screenin:32 Abuse screen: Denies threats or abuse. Denies injuries from another. Nutritional mg2 screening: No deficits noted. Tuberculosis screening: No symptoms or risk factors identified. Fall Risk. Assessment: 20:32 General: Appears in no apparent distress. comfortable, Behavior is calm, cooperative. mg2 Neuro: Level of Consciousness is awake, alert, obeys commands, Oriented to person, place, time, situation. Cardiovascular: Capillary refill < 3 seconds Patient's skin is warm and dry. Respiratory: Airway is patent Respiratory effort is even, unlabored, Respiratory pattern is regular, symmetrical. GI: No signs and/or symptoms were reported involving the gastrointestinal system. : Reports urinary problem. EENT: No signs and/or symptoms were reported regarding the EENT system. Derm: Skin is intact, is healthy with good turgor, Skin is pink, warm \T\ dry. normal. Musculoskeletal: Circulation, motion, and sensation intact. Capillary refill < 3 seconds. 21:19 Reassessment: Patient is alert, oriented x 3, equal unlabored respirations, skin bb warm/dry/pink. IV site intact, patent, with fluids infusing. 22:31 Reassessment: Patient is alert, oriented x 3, equal unlabored respirations, skin bb warm/dry/pink. pt verbalized understanding of and agrees to plan of care discharge instructions given pt ambulated with steady gait to exit. Vital Signs: 18:42 BP 153 / 101; Pulse 90; Resp 19; Temp 98.3; Pulse Ox 99% ; Weight 131.54 kg; Height 5 rr5 ft. 11 in. (180.34 cm); Pain 0/10; 21:19 BP 130 / 88; Pulse 88; Resp 16 S; Pulse Ox 100% on R/A; Pain 0/10; bb 22:32 BP 134 / 94; Pulse 76; Resp 16 S; Temp 97.7(TE); Pulse Ox 100% on R/A; Pain 0/10; bb 18:42 Body Mass Index 40.45 (131.54 kg, 180.34 cm) rr5 ED Course: 18:29 Patient arrived in ED. mr 18:49 Triage completed. rr5 18:51 Arm band placed on left wrist. rr5 20:06 Yousuf Oscar MD is Attending Physician. mh7 20:16 Jayden Caceres, RN is Primary Nurse. mg2 20:32 Patient has correct armband on for positive identification. mg2 20:35 No provider procedures requiring assistance completed. mg2 21:10 XRAY Chest (1 view) In Process Unspecified. EDMS 22:33 IV discontinued, intact, bleeding controlled, No redness/swelling at site. Pressure bb dressing applied. Administered Medications: 20:55 Drug: NS 0.9% 1000 ml Route: IV; Rate: 1000 ml; Site: left antecubital; mg2 21:55 Follow up: IV Status: Completed infusion; IV Intake: 1000ml bb Intake: 21:55 IV: 1000ml; Total: 1000ml. bb Outcome: 22:20 Discharge ordered by . [facility] 22:33 Discharged to home ambulatory. bb 22:33 Condition: stable 22:33 Discharge instructions given to patient, Instructed on discharge instructions, follow up and referral plans. Demonstrated understanding of instructions, follow-up care. 22:33 Patient left the ED. bb Signatures: Dispatcher [employer] EDPR Lila Chong Brenda, RN RN bb Jayden Caceres, RN RN [facility] Miguel Kwong, FENG RN rr5 Yousuf Oscar MD MD [facility]
--- NOTE | 2020-09-28 22:20 | EDPHYS ---
Physician Documentation [facility] Name: Dustin Granados Jr Age: 35 yrs Sex: Male : 1985 Arrival Date: 09/28/2020 Time: 18:29 Bed 28 Private MD: ED Physician Yousuf Oscar HPI: 09/28 20:43 This 35 yrs old Black Male presents to ER via Ambulatory with complaints of Urinary mh7 Problem, Vision Problem, Numbness Of Hand. 20:44 The patient or guardian reports hyperglycemia, polyuria, numbness/tingling of hands, mh7 burning sensation of bottom of feet, blurry vision that was potentially precipitated by no particular event, with the patient's symptoms witnessed by no one. Onset: The symptoms/episode began/occurred this morning, today, Intermittently for several months. Associated signs and symptoms: Pertinent positives: polyuria, Pertinent negatives: anorexia, constipation, decreased urine output, diaphoresis, diarrhea, dry skin, hair loss, ketones in urine, nausea, seizure activity, skin flushing, vomiting. Current symptoms: In the emergency department the patient's symptoms have improved, moderately. The patient has experienced similar episodes in the past, chronically. Symptoms intermittently for several months. States blood sugar usually greater than 300. He called his doctor who told him to get Hgb A1C checked and will see him in the clinic next week. Denies headache, chest pain, nausea, vomiting, SOB, fever, cough, nausea, vomiting, or weakness.. Historical: - Allergies: 18:51 No Known Allergies; rr5 - Home Meds: 18:51 Eliquis 5 mg Oral tab 1 tab 2 times per day [Active]; losartan Oral [Active]; Lantus rr5 100 unit/mL Sub-Q soln [Active]; 18:51 hydrocodone-acetaminophen 7.5-325 mg/15 mL Oral soln [Active]; rr5 - PMHx: 18:51 Diabetes - IDDM; Hypertension; left leg DVT; Myocardial infarction; rr5 - PSHx: 18:51 None; rr5 - Immunization history:: Adult Immunizations up to date. - Social history:: Smoking status: unknown Patient/guardian denies using alcohol, street drugs. ROS: 20:44 Constitutional: Negative for fever, chills, and weight loss, ENT: Negative for injury, mh7 pain, and discharge, Neck: Negative for injury, pain, and swelling, Cardiovascular: Negative for chest pain, palpitations, and edema, Respiratory: Negative for shortness of breath, cough, wheezing, and pleuritic chest pain, Abdomen/GI: Negative for abdominal pain, nausea, vomiting, diarrhea, and constipation, Back: Negative for injury and pain, Skin: Negative for injury, rash, and discoloration, Psych: Negative for depression, anxiety, suicide ideation, homicidal ideation, and hallucinations, Allergy/Immunology: Negative for hives, rash, and allergies, Hematologic/Lymphatic: Negative for swollen nodes, abnormal bleeding, and unusual bruising. Exam: 20:44 Constitutional: This is a well developed, well nourished patient who is awake, alert, mh7 and in no acute distress. Head/Face: Normocephalic, atraumatic. Eyes: Pupils equal round and reactive to light, extra-ocular motions intact. Lids and lashes normal. Conjunctiva and sclera are non-icteric and not injected. Cornea within normal limits. Periorbital areas with no swelling, redness, or edema. ENT: Nares patent. No nasal discharge, no septal abnormalities noted. Tympanic membranes are normal and external auditory canals are clear. Oropharynx with no redness, swelling, or masses, exudates, or evidence of obstruction, uvula midline. Mucous membranes moist. Neck: Trachea midline, no thyromegaly or masses palpated, and no cervical lymphadenopathy. Supple, full range of motion without nuchal rigidity, or vertebral point tenderness. No Meningismus. Chest/axilla: Normal chest wall appearance and motion. Nontender with no deformity. No lesions are appreciated. Cardiovascular: Regular rate and rhythm with a normal S1 and S2. No gallops, murmurs, or rubs. Normal PMI, no JVD. No pulse deficits. Respiratory: Lungs have equal breath sounds bilaterally, clear to auscultation and percussion. No rales, rhonchi or wheezes noted. No increased work of breathing, no retractions or nasal flaring. Abdomen/GI: Soft, non-tender, with normal bowel sounds. No distension or tympany. No guarding or rebound. No evidence of tenderness throughout. Back: No spinal tenderness. No costovertebral tenderness. Full range of motion. Skin: Warm, dry with normal turgor. Normal color with no rashes, no lesions, and no evidence of cellulitis. MS/ Extremity: Pulses equal, no cyanosis. Neurovascular intact. Full, normal range of motion. Neuro: Awake and alert, GCS 15, oriented to person, place, time, and situation. Cranial nerves II-XII grossly intact. Motor strength 5/5 in all extremities. Sensory grossly intact. Cerebellar exam normal. Normal gait. Psych: Awake, alert, with orientation to person, place and time. Behavior, mood, and affect are within normal limits. Vital Signs: 18:42 BP 153 / 101; Pulse 90; Resp 19; Temp 98.3; Pulse Ox 99% ; Weight 131.54 kg; Height 5 rr5 ft. 11 in. (180.34 cm); Pain 0/10; 21:19 BP 130 / 88; Pulse 88; Resp 16 S; Pulse Ox 100% on R/A; Pain 0/10; bb 22:32 BP 134 / 94; Pulse 76; Resp 16 S; Temp 97.7(TE); Pulse Ox 100% on R/A; Pain 0/10; bb 18:42 Body Mass Index 40.45 (131.54 kg, 180.34 cm) rr5 MDM: 22:17 Differential diagnosis: Les's syndrome, diabetes insipidus, DKA, hyperglycemia, mh7 hypoglycemic episode, paresthesias, peripheral neuropathy. Data reviewed: vital signs, nurses notes, lab test result(s), cardiac enzymes, CBC, electrolytes, urinalysis, EKG, radiologic studies, plain films. Data interpreted: Pulse oximetry: on room air is 100 %. Interpretation: normal. Counseling: I had a detailed discussion with the patient and/or guardian regarding: the historical points, exam findings, and any diagnostic results supporting the discharge/admit diagnosis, lab results, radiology results, the need for outpatient follow up, to return to the emergency department if symptoms worsen or persist or if there are any questions or concerns that arise at home. Response to treatment: the patient's symptoms have resolved after treatment, the patient's blood pressure is in an acceptable range, mental status has returned to baseline, the patient no longer shows bradycardia, the patient is not short of breath, the patient is not tachycardic, the patient's pain is gone, the patient's temperature has normalized. 22:20 Patient medically screened. [facility] 09/28 19:00 Order name: Glucose, Ancillary Testing; Complete Time: 20:10 EDMS 09/28 19:28 Order name: Urine Dipstick-Ancillary; Complete Time: 20:10 EDMS 09/28 20:32 Order name: Basic Metabolic Panel; Complete Time: 21:49 7 09/28 20:32 Order name: CBC with Diff; Complete Time: 21:49 7 09/28 20:32 Order name: LFT's; Complete Time: 21:49 7 09/28 20:32 Order name: Magnesium; Complete Time: 21:49 7 09/28 18:52 Order name: Urine Dipstick-Ancillary (obtain specimen); Complete Time: 20:16 5 09/28 20:32 Order name: NT PRO-BNP; Complete Time: 21:49 7 09/28 20:32 Order name: PT-INR; Complete Time: 21:49 7 09/28 20:32 Order name: Troponin (emerg Dept Use Only); Complete Time: 21:49 7 09/28 20:32 Order name: XRAY Chest (1 view); Complete Time: 21:49 7 09/28 20:32 Order name: EKG; Complete Time: 20:33 7 09/28 18:53 Order name: Blood Sugar; Complete Time: 18:53 5 09/28 20:32 Order name: Cardiac monitoring; Complete Time: 20:52 7 09/28 20:32 Order name: EKG - Nurse/Tech; Complete Time: 20:53 7 09/28 20:32 Order name: IV Saline Lock; Complete Time: 20:53 7 09/28 20:32 Order name: Labs collected and sent; Complete Time: 20:53 7 09/28 20:32 Order name: O2 Per Protocol; Complete Time: 20:53 7 09/28 20:32 Order name: O2 Sat Monitoring; Complete Time: 20:53 mh7 Administered Medications: 20:55 Drug: NS 0.9% 1000 ml Route: IV; Rate: 1000 ml; Site: left antecubital; mg2 21:55 Follow up: IV Status: Completed infusion; IV Intake: 1000ml bb Disposition: 09/28/20 22:20 Discharged to Home. Impression: Diabetes mellitus due to underlying condition with diabetic neuropathy, unspecified. - Condition is Stable. - Discharge Instructions: Peripheral Neuropathy, Diabetic Neuropathy, Blood Glucose Monitoring, Adult, Hyperglycemia, [id number], Type 2 Diabetes Mellitus, Self Care, Adult, [id number]. - Medication Reconciliation Form, Thank You Letter, Antibiotic Education, Prescription Opioid Use form. - Follow up: Private Physician; When: 1 - 2 days; Reason: Worsening of condition, Recheck today's complaints, Continuance of care, Re-evaluation by your physician. - Problem is chronic. - Symptoms have improved. Signatures: Dispatcher [employer] EDMA Isha Montano RN RN bb Jayden Caceres RN FENG mg2 Miguel Kwong RN RN rr5 Yousuf Oscar MD MD 7 Corrections: (The following items were deleted from the chart) 20:33 20:32 HEMOGLOBIN A1C+CHEM A1C.LAB.BRZ ordered. [facility] 22:33 22:20 09/28/2020 22:20 Discharged to Home. Impression: Diabetes mellitus due to bb underlying condition with diabetic neuropathy, unspecified. Condition is Stable. Forms are Medication Reconciliation Form, Thank You Letter, Antibiotic Education, Prescription Opioid Use. Follow up: Private Physician; When: 1 - 2 days; Reason: Worsening of condition, Recheck today's complaints, Continuance of care, Re-evaluation by your physician. Problem is chronic. Symptoms have improved. 7
[2020-09-29 10:03] VITALS: BP 130/88; O2SAT 100
--- NOTE | 2020-09-29 10:16 | EKG ---
Test Date: 2020-09-28 Test Time: 20:46:00 National Business Director: MEASUREMENT RESULTS: Intervals: Rate: 80 MT: 152 QRSD: 80 QT: 360 QTc: 415 [place]: P: 39 MT: 152 QRS: 65 T: -1 INTERPRETIVE STATEMENTS: Normal sinus rhythm Abnormal QRS-T angle, consider primary T wave abnormality Abnormal ECG Compared to ECG 03/14/2019 14:14:27 T-wave abnormality now present Electronically Signed On 09-29-20 10:15:10 CDT by Akshat Sterling
== END 2020-09-28 22:33 | disposition home or self-care (01) ==
LOC: ER 18:26
DX: E11.40 Type 2 diabetes mellitus with diabetic neuropathy, unspecified (principal); I10 Essential (primary) hypertension; I25.2 Old myocardial infarction; Z79.4 Long term (current) use of insulin; Z86.718 Personal history of other venous thrombosis and embolism
CPT/HCPCS: 36415; 71045; 80048; 80076; 81003; 82947; 83735; 83880; 84484; 85025; 85610; 93005; 96360; 99283; J7030

== ENCOUNTER 2021-04-05 12:14 | Emergency (ER) | payer SELFPAY ==
--- NOTE | 2021-04-05 14:44 | RAD REPORT ---
EXAM DESCRIPTION: US - Extremity Venous Uni Ltd - 04/05/2021 2:37 pm CLINICAL HISTORY: Left leg pain COMPARISON: 12/14/2018 TECHNIQUE: Real-time sonographic evaluation of the left lower extremity deep venous system was perfo rmed. FINDINGS: Normal compressibility, flow augmentation, phasic flow and spontaneous flow is identified in the left lower extremity deep venous system excluding the popliteal vein which continues to have s ome eccentric nonocclusive thrombus. IMPRESSION: Chronic popliteal vein nonocclusive thrombus. No evidence of acute/new DVT in the left l ower extremity.
--- NOTE | 2021-04-05 15:17 | ER ---
Nurse's Notes [facility] Name: Dustin Granados Jr Age: 36 yrs Sex: Male : 1985 Arrival Date: 04/05/2021 Time: 12:16 Bed 27 Private MD: Mauricio Wong Diagnosis: Chronic embolism and thrombosis of unspecified deep veins of left lower extremity Presentation: 04/05 12:38 Chief complaint: Patient states: Left calf swelling and pain x 2 weeks, unable to see jl7 Dr. Wong, hx of DVTs, takes Eliquis. Coronavirus screen: At this time, the client does not indicate any symptoms associated with coronavirus-19. Ebola Screen: No symptoms or risks identified at this time. Initial Sepsis Screen: Does the patient meet any 2 criteria? No. Patient's initial sepsis screen is negative. Does the patient have a suspected source of infection? No. Patient's initial sepsis screen is negative. Risk Assessment: Do you want to hurt yourself or someone else? Patient reports no desire to harm self or others. Onset of symptoms was March 22, 2021. 12:38 Method Of Arrival: Ambulatory jl7 12:38 Acuity: NICHOLE 2 jl7 Triage Assessment: 12:40 General: Appears in no apparent distress. uncomfortable, Behavior is calm, cooperative, jl7 appropriate for age. Pain: Complains of pain in left calf Pain currently is 6 out of 10 on a pain scale. Historical: - Allergies: 12:40 No Known Allergies; jl7 - Home Meds: 12:40 Eliquis 5 mg Oral tab 1 tab 2 times per day [Active]; hydrocodone-acetaminophen 7.5-325 jl7 mg/15 mL Oral soln [Active]; Lantus 100 unit/mL Sub-Q soln [Active]; losartan Oral [Active]; - PMHx: 12:40 Diabetes - IDDM; Hypertension; left leg DVT; Myocardial infarction; jl7 - PSHx: 12:40 None; jl7 - Immunization history:: Adult Immunizations up to date, Client reports receiving the 2nd dose of the Covid vaccine, Pfizer. - Social history:: Smoking status: Patient denies any tobacco usage or history of. Screenin:02 Abuse screen: Denies threats or abuse. Nutritional screening: No deficits noted. ap3 Tuberculosis screening: No symptoms or risk factors identified. Fall Risk None identified. Assessment: 12:57 General: Appears in no apparent distress. comfortable, Behavior is calm, cooperative, ap3 appropriate for age. Pain: Complains of pain in left leg and left calf Pain currently is 6 out of 10 on a pain scale. Neuro: Level of Consciousness is awake, alert, obeys commands, Oriented to person, place, time, situation, Appropriate for age [employer] Specialist are equal bilaterally Moves all extremities. Gait is steady, Speech is normal. Cardiovascular: Patient's skin is warm and dry. Respiratory: Airway is patent Respiratory effort is even, unlabored, Respiratory pattern is regular, symmetrical. Musculoskeletal: Swelling present in left leg and left calf. 15:02 Reassessment: Patient and/or family updated on plan of care and expected duration. Pain ap3 level reassessed. Patient is alert, oriented x 3, equal unlabored respirations, skin warm/dry/pink. Vital Signs: 12:38 BP 140 / 84; Pulse 89; Resp 19; Temp 98.4; Pulse Ox 100% on R/A; Weight 124.74 kg; jl7 Height 5 ft. 11 in. (180.34 cm); Pain 6/10; 15:01 BP 128 / 89; Pulse 79; Resp 18; Pulse Ox 100% on R/A; ap3 12:38 Body Mass Index 38.35 (124.74 kg, 180.34 cm) jl7 ED Course: 12:16 Patient arrived in ED. as 12:16 Mauricio Wong DO is Private Physician. as 12:40 Triage completed. jl7 12:40 Arm band placed on right wrist. jl7 12:51 Lakisha Lowry, FENG is Primary Nurse. ap3 12:53 Rosita Littlejohn FNP-C is PHCP. kb 12:53 Jeremy Her MD is Attending Physician. kb 13:02 Patient has correct armband on for positive identification. Bed in low position. Call ap3 light in reach. Side rails up X2. Pulse ox on. NIBP on. Door closed. Noise minimized. 13:34 US Extremity Venous Unilateral Ltd In Process Unspecified. EDMS 15:31 No provider procedures requiring assistance completed. Patient did not have IV access ap3 during this emergency room visit. Administered Medications: No medications were administered Outcome: 15:16 Discharge ordered by MD. carrasco 15:31 Discharged to home ambulatory. ap3 15:31 Condition: good 15:31 Discharge instructions given to patient, Instructed on discharge instructions, follow up and referral plans. Demonstrated understanding of instructions, follow-up care. 15:32 Patient left the ED. ap3 Signatures: Dispatcher [employer] EDRosita Delacruz, ELIZABETH LUEVANO-Mariola Dunham Jahala RN RN jl7 Lakisha Lowry RN RN ap3
--- NOTE | 2021-04-05 15:17 | EDPHYS ---
Physician Documentation [facility] Name: Dustin Granados Jr Age: 36 yrs Sex: Male : 1985 Arrival Date: 04/05/2021 Time: 12:16 Bed 27 Private MD: Marvin [facility] ED Physician Jeremy Her HPI: 04/05 17:41 This 36 yrs old Black Male presents to ER via Ambulatory with complaints of Leg kb Swelling. 17:41 The patient presents with pain, swelling, tenderness. The complaints affect the left kb calf. Context: The problem was sustained at home, the patient can fully bear weight, the patient is able to ambulate, Problem is a result from a previous injury: No. Onset: The symptoms/episode began/occurred 2 week(s) ago. Modifying factors: The symptoms are alleviated by nothing. the symptoms are aggravated by nothing. Associated signs and symptoms: Pertinent positives: calf tenderness, swelling, Pertinent negatives fever, nausea, numbness, rash, tingling, vomiting, warmth, weakness. Treatment prior to arrival includes: no previous treatment. Severity of symptoms: At their worst the symptoms were mild, moderate, in the emergency department the symptoms are unchanged. The patient has experienced similar episodes in the past. The patient has not recently seen a physician. Pt reports left calf swelling for 2 weeks. States he has been unable to get into Dr Wong's office. States he called the office today and they told him to just come to the ER. Reports history of clot in the left leg and is on xarelto daily. Historical: - Allergies: 12:40 No Known Allergies; jl7 - Home Meds: 12:40 Eliquis 5 mg Oral tab 1 tab 2 times per day [Active]; hydrocodone-acetaminophen 7.5-325 jl7 mg/15 mL Oral soln [Active]; Lantus 100 unit/mL Sub-Q soln [Active]; losartan Oral [Active]; - PMHx: 12:40 Diabetes - IDDM; Hypertension; left leg DVT; Myocardial infarction; jl7 - PSHx: 12:40 None; jl7 - Immunization history:: Adult Immunizations up to date, Client reports receiving the 2nd dose of the Covid vaccine, Pfizer. - Social history:: Smoking status: Patient denies any tobacco usage or history of. ROS: 17:41 Constitutional: Negative for fever, chills, and weight loss. kb 17:41 MS/extremity: Positive for pain, swelling, tenderness, of the left calf. 17:41 All other systems are negative. Exam: 17:41 Constitutional: This is a well developed, well nourished patient who is awake, alert, kb and in no acute distress. Head/Face: Normocephalic, atraumatic. ENT: Moist Mucous membranes Respiratory: Respirations even and unlabored. No increased work of breathing, no retractions or nasal flaring. Skin: Warm, dry with normal turgor. Normal color. Neuro: Awake and alert, GCS 15, oriented to person, place, time, and situation. Moves all extremities. Normal gait. Psych: Awake, alert, with orientation to person, place and time. Behavior, mood, and affect are within normal limits. 17:41 Musculoskeletal/extremity: Extremities: grossly normal except: noted in the left calf: pain, swelling, tenderness, ROM: intact in all extremities, Circulation is intact in all extremities. Sensation intact. Weight bearing: able to fully bear weight, DVT Exam: pain, swelling, tenderness. Vital Signs: 12:38 BP 140 / 84; Pulse 89; Resp 19; Temp 98.4; Pulse Ox 100% on R/A; Weight 124.74 kg; jl7 Height 5 ft. 11 in. (180.34 cm); Pain 6/10; 15:01 BP 128 / 89; Pulse 79; Resp 18; Pulse Ox 100% on R/A; ap3 12:38 Body Mass Index 38.35 (124.74 kg, 180.34 cm) jl7 MDM: 12:53 Patient medically screened. kb 17:43 Data reviewed: vital signs, nurses notes. Data interpreted: Pulse oximetry: on room air kb is 100 %. Interpretation: normal. Counseling: I had a detailed discussion with the patient and/or guardian regarding: the historical points, exam findings, and any diagnostic results supporting the discharge/admit diagnosis, radiology results, the need for outpatient follow up, a family practitioner, to return to the emergency department if symptoms worsen or persist or if there are any questions or concerns that arise at home. 04/05 12:41 Order name: Extremity Venous Unilateral Ltd; Complete Time: 14:47 kb Administered Medications: No medications were administered Disposition: 04/06 12:53 Co-signature as Attending Physician, Jeremy Her MD I agree with the assessment and kdr plan of care. 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
[2021-04-05 15:50] VITALS: TEMP 98.4; O2SAT 100
[2021-04-05 15:51] VITALS: BP 128/89
== END 2021-04-05 15:32 | disposition home or self-care (01) ==
LOC: ER 12:14
DX: I82.5Z2 Chronic embolism and thrombosis of unspecified deep veins of left distal lower extremity (principal); I10 Essential (primary) hypertension; E11.9 Type 2 diabetes mellitus without complications; I25.2 Old myocardial infarction; Z79.01 Long term (current) use of anticoagulants; Z79.4 Long term (current) use of insulin
CPT/HCPCS: 93971; 99283

== ENCOUNTER 2021-06-06 10:47 | Emergency (ER) | payer SELFPAY ==
--- OUTSIDE RECORDS SUMMARY | 2021-06-06 10:50 | XMS REPORT | Continuity of Care Document ---
:1985 Author Organization [facility] t Address [address] [place] [address] Care Team Providers Name Role Phone Lisa Rondon Attending Clinician Problems This patient has no known problems. Allergies, Adverse Reactions, Alerts Allergy Allergy Status Severity Reaction(s) Onset Inactive Treating Comm ents Source Name Type Date Date Clinician NO KNOWN Drug Active Univers ALLERGIE Class ity of S [facility] Social History Social Habit Start Date Stop Date Quantity Comments Source [facility] to SARS-CoV-2 [facility] sure [facility] Smoking Status Start Date Stop Date Source Unknown if ever smoked Universit y [facility] Medications Ordered Filled Start Stop Current Ordering Indication Dosage Frequency Signature Comments Components Source Medication Medication Date Date Medication? Clinician (SIG) Name Name insulin Yes 60U inject 60 Unive rs glargine,hu 1-26 Units ity of m.rec.anlog 02:02: [place] skin. [facility] GLIMEPIRIDE Yes Take by Un josé ORAL 1-26 mouth. ity of 02:02: [address] apixaban Yes Take by Unive rs (ELIQUIS 07-17 mouth. ity of ORAL) 02:02: [address] Branch Hydrocodone Yes Take by Un josé -Acetaminop 07-17 mouth. ity of hen 7.5-300 02:02: [place] mg tablet 58 Medical Branch losartan Yes Take by Unive rs potassium 07-17 mouth. ity of (LOSARTAN 02:02: [place] ORAL) [address] [place] [address] Branch gabapentin Yes 300mg Take 300 Un josé 300 mg - mg by ity of capsule 02:02: mouth [address] [place] [id number] (two) Medical times Branch daily as needed. FENTanyl PF 2020- No 100ug 100 mcg, Univers (SUBLIMAZE 07-17 Intramuscu it y of (PF)) 01:52: 02:04 lar, ONCE, [place] injection 00 :00 1 dose, Medical 100 mcg Mon Branch 07/16/20 at 1999, ZION cyclobenzap 2020- No 10mg 10 mg, Uni vers rine 07-17 Oral, ity of (FLEXERIL) 01:52: 02:03 ONCE, 1 Noel as tablet 10 00 :00 dose, Mon Medic al mg 07/16/20 at Branch 1999, ZION cyclobenzap Yes [id number] 10mg Take 1 Univers rine 10 mg 1-25 tablet by ity of tablet 00:00: mouth 2 [place] [address] (two) Medical times [place] daily as needed for Muscle Spasms. Lovastatin Lovastatin Yes Delmi 1 tablet [facility] [...] Potassium [facility] Glimepiride Glimepiride Yes Delmi [address] [facility] [address] [facility] with [facility] or the l first main Outpati meal of ent the day Clinics Acetaminoph Acetaminoph Yes Delmi [address] [facility] Miguel as needed [facility] No known No Univers medications [facility] Vital Signs Vital Name Observation Time Observation Value Comments Source Systolic blood 2020-07-17 02:22:00 147 mm[Hg] Univer sity of pressure [facility] Branch Diastolic blood 2020-07-17 02:22:00 98 mm[Hg] Unive rsity of pressure [facility] Heart rate 2020-07-17 02:22:00 87 /min [facility] Respiratory rate 2020-07-17 02:22:00 18 /min [facility] Oxygen saturation in 2020-07-17 02:22:00 99 /min University of Arterial blood by [facility] Pulse oximetry Branch Heart rate 2020-07-16 22:11:00 90 /min [facility] Body temperature 2020-07-16 22:11:00 37.28 [facility] Respiratory rate 2020-07-16 22:11:00 20 /min [facility] Body weight 2020-07-16 22:11:00 142.883 kg [facility] BMI 2020-07-16 22:11:00 43.93 kg/m2 [facility] Oxygen saturation in 2020-07-16 22:11:00 99 /min University of Arterial blood by [facility] Pulse oximetry Branch Systolic blood 2020-07-16 22:11:00 166 mm[Hg] Univer sity of pressure [facility] Diastolic blood 2020-07-16 22:11:00 114 mm[Hg] Unive rsity of pressure [facility] Branch Systolic blood 2020-07-17 02:22:00 147 mm[Hg] Univer sity of pressure [facility] Diastolic blood 2020-07-17 02:22:00 98 mm[Hg] Unive rsity of pressure [facility] Branch Heart rate 2020-07-17 02:22:00 87 /min [facility] Respiratory rate 2020-07-17 02:22:00 18 /min [facility] Oxygen saturation in 2020-07-17 02:22:00 99 /min University of Arterial blood by [facility] Pulse oximetry Branch Heart rate 2020-07-16 22:11:00 90 /min [facility] Body temperature 2020-07-16 22:11:00 37.28 Cathy [facility] Respiratory rate 2020-07-16 22:11:00 20 /min [facility] Body weight 2020-07-16 22:11:00 142.883 kg [facility] BMI 2020-07-16 22:11:00 43.93 kg/m2 [facility] Oxygen saturation in 2020-07-16 22:11:00 99 /min [place] of Arterial blood by [facility] Pulse oximetry Branch Systolic blood 2020-07-16 22:11:00 166 mm[Hg] Univer sity of pressure [facility] Diastolic blood 2020-07-16 22:11:00 114 mm[Hg] Unive rsity of pressure [facility] Procedures Procedure Date / Time Performed Performing Clinician Sourc e XR LUMBAR SPINE 3 VW 2020-07-17 00:14:38 Lisa Floyd [facility] UNILATERAL VENOUS 2020-07-16 23:02:50 Lisa Floyd [facility] DUPLEX LOWER EXTREMITY Medical [place] ranch BY VASCULAR LAB NOTICE OF PRIVACY 2020-07-16 22:20:23 Doctor Unassigned, No Univ [facility] PRACTICES Name Medical Branch CONSENT/REFUSAL FOR 2020-07-16 22:20:07 Doctor Unassigned, No [facility] DIAGNOSIS AND Name Medical Branch TREATMENT Encounters Start End Encounter Admission Attending Care Care Encounter Source Date/Time Date/Time Type Type Clinicians Facility Department ID 2020-07-16 2020-07-16 Emergency PREMA Floyd [id number] 16:22:00 20:29:00 Lisa Tejada [id number] [place] [id number] [place] [id number] 2020-07-16 2020-07-16 Emergency Vincent, [facility] [id number] Univers 16:22:00 20:29:00 Lisa Tejada [id number] i [place] [id number] [facility] [id number] [address] 2020-07-16 2020-07-16 Emergency X [facility] ERT [id number] Univers 16:01:00 16:01:00 ity [facility] 2020-04-05 2020-04-05 Outpatient [facility] [id number] [facility] 2020-03-28 2020-03-28 Outpatient [facility] [id number] [facility] 2020-02-29 2020-02-29 [facility] [id number] [address] 15:00:00 15:00:00 t [facility] [employer] [facility] Family [facility] l Medicine Outpati ent Clinics 2020-02-29 2020-02-29 [facility] [id number] 12:06:00 12:06:00 t K[facility] s - [employer] [facility] Family Medicine l Medicine Outpati ent Clinics 2020-01-19 2020-01-19 [facility] [id number] 14:30:00 14:30:00 t [facility] s - [employer] [facility] Family Medicine l Medicine Outpati ent Clinics 2019-10-20 2019-10-20 [facility] [id number] 14:45:00 14:45:00 t [facility] s - [employer] [facility] Family Medicine l Medicine Outpati ent Clinics 2019-10-11 2019-10-11 [facility] [id number] 14:20:00 14:20:00 t [facility] s - [employer] [facility] Family Medicine l Medicine Outpati ent Clinics 2019-09-20 2019-09-20 [facility] [id number] 10:15:00 10:15:00 t [facility] s - [employer] [facility] Family Medicine l Medicine Outpati ent Clinics 2019-09-19 2019-09-19 Outpatient [facility] [id number] 13:48:00 13:48:00 t [facility] [employer] [place] [facility] ent Clinics 2019-02-25 2019-02-25 [facility] [id number] 08:45:00 08:45:00 t [facility] s [facility] Clinics 2019-01-12 2019-01-12 [facility] [id number] 13:46:00 13:46:00 t [facility] s [facility] Clinics 2019-01-06 2019-01-06 [facility] [id number] 13:30:00 13:30:00 t [facility] s [facility] Clinics Results Test Test Test Results Result Source Description Time Comments Comments XR LUMBAR SPINE 2020-06- No acute osseous Un iversity of 3 VW 26 abnormality RL: [id number] Noel as Medical 01:53:33 End of Report Branch Ordering Physician: LISA FLOYD HISTORY: Lower back pain TECHNIQUE: Frontal, lateral and coned lateral views COMPARISON: none FINDINGS: There is no acute fracture or dislocation. There is normal alignmentwithout subluxation. ?The heights of the vertebral bodies are maintained. There is no spondylolysis. ?The disk heights are preserved. [facility], Radiant Results Inft User - 07/16/2020 7:54 PM CSTOrdering Physician: LISA BUNDYISTORY: Lower back painTECHNIQUE: Frontal, lateral and coned lateral viewsCOMPARISON: noneFINDINGS: There is no acute fracture or dislocation. There is normal alignmentwithout subluxation. The heights of the vertebral bodies are maintained. There is no spondylolysis. The disk heights are preserved. IMPRESSIONNo acute osseous abnormalityRL: [id number] of Report
[2021-06-06] MEDS ORDERED: HYDROCODONE/APAP 10/325 TAB ONE (11:49)
[2021-06-06 11:53] LABS: Absolute Lymphocytes (CBC) 1.8 K/uL (0.7-4.9); Basophils % 0.8 % (0-1.3); Hematocrit 44.4 % (39.6-49.0); Lymphocytes % 18.2 % (15.3-44.8); MPV 7.7 fL (7.6-11.3); RBC Red Blood Cell Count 5.16 M/uL (4.33-5.43)
[2021-06-06 12:00] LABS: Protime INR 1.02
[2021-06-06 12:19] LABS: BUN Blood Urea Nitrogen 13 mg/dL (7-18); Bicarbonate 24 mmol/L (21-32); Sodium Level 136 mmol/L (136-145)
[2021-06-06 12:21] LABS: Glucose Level 482 mg/dL (74-106)
--- NOTE | 2021-06-06 12:36 | RAD REPORT ---
EXAM DESCRIPTION: US - Lower Extremity Artery Uni Ltd - 06/06/2021 12:25 pm CLINICAL HISTORY: Leg pain COMPARISON: None FINDINGS: The common femoral, superficial femoral and popliteal arteries in the left lower extremity demonstrate triphasic waveforms The posterior tibial and dorsalis pedis arteries demonstrate triphasic waveforms in the left lower ex tremity. IMPRESSION: No flow limiting stenosis in the left lower extremity.
--- NOTE | 2021-06-06 12:40 | RAD REPORT ---
EXAM DESCRIPTION: US - Extremity Venous Uni Ltd - 06/06/2021 12:25 pm CLINICAL HISTORY: pain, swelling COMPARISON: Extremity Venous Uni Ltd dated 04/05/2021 FINDINGS: Partially compressible left popliteal vein with reduced color and Doppler flow. The left c ommon femoral vein, greater saphenous vein, posterior tibial veins are compressible and demonstrate c olor and Doppler flow. IMPRESSION: Chronic nonocclusive thrombus in the left popliteal vein without significant change.
[2021-06-06] MEDS ORDERED: INSULIN -REGULAR HUMAN 50 UNIT/0.5 ML ML ONE (12:47)
--- NOTE | 2021-06-06 12:53 | RAD REPORT ---
EXAM DESCRIPTION: CT - Chest For Pe Angio - 06/06/2021 12:46 pm CLINICAL HISTORY: dvt COMPARISON: Chest For Pe Angio dated 11/16/2018; Chest For Pe Angio dated 09/21/2017 FINDINGS: Chest Wall: No suspicious thyroid nodules or pathologic lymphadenopathy. Lungs: No acute abnormality. Pleura: No significant effusions or pneumothorax. Mediastinum/sunil: No pathologic lymphadenopathy. Pulmonary arteries/Aorta: No filling defect identified. No aortic aneurysm. Limited evaluation of the pulmonary arteries due to motion artifact. No clinically significant pulmonary embolus identified. Heart: No significant pericardial effusion. Normal heart size. Upper abdomen: No acute abnormality. Bones: No acute abnormality. All CT scans are performed using dose optimization technique as appropriate and may include automated exposure control or mA/KV adjustment according to patient size. IMPRESSION: No clinically significant pulmonary embolus identified. Limited evaluation of some of th e segmental and most of the subsegmental pulmonary arteries due to motion. No other acute process is identified.
[2021-06-06] MEDS ORDERED: NA CHLORIDE 0.9% 1,000 ML ONE (12:57)
--- NOTE | 2021-06-06 13:55 | ER ---
Nurse's Notes [facility] Name: Dustin Granados Jr Age: 36 yrs Sex: Male : 1985 Arrival Date: 06/06/2021 Time: 10:48 Bed 10 Private MD: Fadumo Hernandez Diagnosis: Chronic embolism and thrombosis of other specified deep vein of left lower extremity;Diabetes mellitus due to underlying condition with hyperglycemia Presentation: 06/06 10:53 Chief complaint: Patient states: seen in ED April 05 and dx with 'chronic embolism vg1 and thrombosis of unspecified deep vein of left lower extremity'. Pt states Left leg is painful, swollen and warm to touch. States left leg 'has not changed since March.' Denies SOB or chest pain. States cough x 2 weeks. Coronavirus screen: Vaccine status: Patient reports receiving the 2nd dose of the covid vaccine. Client denies travel out of the [place] in the last 14 days. Ebola Screen: Patient negative for fever greater than or equal to 101.5 degrees Fahrenheit, and additional compatible Ebola Virus Disease symptoms. Initial Sepsis Screen: Does the patient meet any 2 criteria? No. Patient's initial sepsis screen is negative. Does the patient have a suspected source of infection? No. Patient's initial sepsis screen is negative. Risk Assessment: Do you want to hurt yourself or someone else? Patient reports no desire to harm self or others. Onset of symptoms was April 05, 2021. 10:53 Method Of Arrival: Ambulatory vg1 10:53 Acuity: NICHOLE 3 vg1 Triage Assessment: 10:57 General: Appears in no apparent distress. uncomfortable, Behavior is calm, cooperative. vg1 Pain: Complains of pain in left leg Pain currently is 6 out of 10 on a pain scale. Derm: Skin temperature is warm. Musculoskeletal: Swelling present in left calf and left giles. Historical: - Allergies: 10:57 No Known Allergies; vg1 - Home Meds: 10:57 Eliquis 5 mg Oral tab 1 tab 2 times per day [Active]; losartan Oral [Active]; Lantus vg1 100 unit/mL Sub-Q soln [Active]; - PSHx: 10:57 None; vg1 - Immunization history:: Client reports receiving the 2nd dose of the Covid vaccine. - Social history:: Smoking status: Patient denies any tobacco usage or history of. Patient uses street drugs, marijuana. Screenin:46 Abuse screen: Denies threats or abuse. Denies injuries from another. Nutritional ww screening: No deficits noted. Tuberculosis screening: No symptoms or risk factors identified. Fall Risk None identified. Assessment: 11:30 General: Appears in no apparent distress. comfortable, well groomed, well developed, ww well nourished, Behavior is calm, cooperative, appropriate for age. Pain:. Neuro: No deficits noted. Level of Consciousness is awake, alert, obeys commands, Oriented to person, place, time, situation, Appropriate for age Moves all extremities. Gait is steady, Speech is normal. Cardiovascular: Denies chest pain, Capillary refill < 3 seconds in bilateral fingers. Respiratory: Airway is patent Respiratory effort is even, unlabored, Respiratory pattern is regular, symmetrical. GI: No deficits noted. No signs and/or symptoms were reported involving the gastrointestinal system. : No deficits noted. No signs and/or symptoms were reported regarding the genitourinary system. EENT: No deficits noted. No signs and/or symptoms were reported regarding the EENT system. Derm: No deficits noted. No signs and/or symptoms reported regarding the dermatologic system. Skin is intact, Skin is pink, warm \T\ dry. Musculoskeletal: No deficits noted. 12:30 Reassessment: Patient appears in no apparent distress at this time. No changes from ww previously documented assessment. Patient and/or family updated on plan of care and expected duration. Pain level reassessed. 14:00 Reassessment: Patient appears in no apparent distress at this time. No changes from ww previously documented assessment. Patient and/or family updated on plan of care and expected duration. Pain level reassessed. Vital Signs: 10:53 BP 153 / 106; Pulse 118; Resp 18; Temp 97.5; Pulse Ox 100% ; Weight 86.18 kg; Height 5 vg1 ft. 11 in. (180.34 cm); Pain 6/10; 12:56 BP 180 / 99; Pulse 96; Resp 18; Pulse Ox 100% on R/A; ww 13:37 BP 144 / 91; Pulse 90; Resp 18; Pulse Ox 100% on R/A; ww 15:15 BP 118 / 83; Pulse 73; Resp 18; Pulse Ox 100% on R/A; ww 10:53 Body Mass Index 26.50 (86.18 kg, 180.34 cm) vg1 Adrian Coma Score: 12:56 Eye Response: spontaneous(4). Verbal Response: oriented(5). Motor Response: obeys ww commands(6). Total: 15. ED Course: 10:48 Patient arrived in ED. as 10:48 Fadumo Hernandez MD is Private Physician. as 10:57 Triage completed. vg1 10:57 Arm band placed on. vg1 11:26 Rosita Littlejohn FNP-C [facility]. kb 11:26 Jeremy Her MD is Attending Physician. kb 11:28 Christelle Villalpando RN is Primary Nurse. ww 11:46 Patient has correct armband on for positive identification. Placed in gown. Bed in low ww position. Call light in reach. Side rails up X 1. 11:46 Protime (+inr) Sent. ww 11:46 Ptt, Activated Sent. ww 11:46 Basic Metabolic Panel Sent. ww 11:46 CBC with Diff Sent. ww 11:46 CBC with Automated Diff Sent. ww 11:46 Initial lab(s) drawn, by tx, sent to lab. Inserted saline lock: 18 gauge in right ww antecubital area, using aseptic technique. Blood collected. 12:25 US Extremity Venous Unilateral Ltd In Process Unspecified. EDMS 12:25 US LE Artery Uni Ltd In Process Unspecified. EDMS 12:46 CT Chest For PE Angio In Process Unspecified. EDMS 15:15 No provider procedures requiring assistance completed. intact, bleeding controlled, No ww redness/swelling at site. Pressure dressing applied. Administered Medications: 11:50 Drug: Heber (HYDROcodone-acetaminophen) 10 mg-325 mg 1 tabs Route: PO; ww 12:50 Drug: Insulin Regular Human 10 units {Co-Signature: iw (Corin Smith RN).} Route: ww IVP; Site: right antecubital; 13:00 Drug: NS 0.9% 1000 ml Route: IV; Rate: 1000 ml; Site: right antecubital; ww 14:30 Drug: Ketorolac 60 mg Route: IM; Site: right gluteus; ww Outcome: 13:54 Discharge ordered by . kb 15:15 Discharged to home ambulatory. ww 15:15 Condition: stable 15:15 Discharge instructions given to patient, Instructed on discharge instructions, follow up and referral plans. safety practices, Demonstrated understanding of instructions, follow-up care. 15:20 Patient left the ED. ww Signatures: Dispatcher [employer] Rosita Hall, ELIZABETH LUEVANO-Mariola Dunham Victoria, RN RN vg1 Christelle Villalpando RN RN ww Corin Smith RN iw
--- NOTE | 2021-06-06 13:55 | EDPHYS ---
Physician Documentation [facility] Name: Dustin Granados Jr Age: 36 yrs Sex: Male : 1985 Arrival Date: 06/06/2021 Time: 10:48 Bed 10 Private MD: Fadumo Hernandez ED Physician Jeremy Her HPI: 06/06 16:01 This 36 yrs old Black Male presents to ER via Ambulatory with complaints of Cough, Leg kb Swelling. 16:01 The patient has not recently seen a physician. kb 16:05 The patient presents with pain, swelling, tenderness. The complaints affect the left kb calf. Context: The problem was sustained at home, resulted from a chronic condition, the patient can fully bear weight, the patient is able to ambulate. Onset: The symptoms/episode began/occurred ongoing for months. Modifying factors: The symptoms are alleviated by nothing. the symptoms are aggravated by nothing. Associated signs and symptoms: Pertinent positives: swelling. Treatment prior to arrival includes: no previous treatment. Severity of symptoms: At their worst the symptoms were moderate, in the emergency department the symptoms are unchanged. The patient has experienced similar episodes in the past, chronically. Pt c/o continued pain, swelling and tenderness to LLE due to chronic blood clot. Sees pain management and PCP for treatment, takes eliquis 5mg daily.. Historical: - Allergies: 10:57 No Known Allergies; vg1 - Home Meds: 10:57 Eliquis 5 mg Oral tab 1 tab 2 times per day [Active]; losartan Oral [Active]; Lantus vg1 100 unit/mL Sub-Q soln [Active]; - PSHx: 10:57 None; vg1 - Immunization history:: Client reports receiving the 2nd dose of the Covid vaccine. - Social history:: Smoking status: Patient denies any tobacco usage or history of. Patient uses street drugs, marijuana. ROS: 16:00 Constitutional: Negative for fever, chills, and weight loss. kb 16:00 MS/extremity: Positive for pain, swelling, tenderness, of the left calf. 16:00 All other systems are negative. Exam: 16:00 Constitutional: This is a well developed, well nourished patient who is awake, alert, kb and in no acute distress. Head/Face: Normocephalic, atraumatic. ENT: Moist Mucous membranes Cardiovascular: Regular rate and rhythm with a normal S1 and S2. No gallops, murmurs, or rubs. No pulse deficits. Respiratory: Respirations even and unlabored. No increased work of breathing. Talking in full sentences Skin: Warm, dry with normal turgor. Normal color. Neuro: Awake and alert, GCS 15, oriented to person, place, time, and situation. Moves all extremities. Normal gait. Psych: Awake, alert, with orientation to person, place and time. Behavior, mood, and affect are within normal limits. 16:00 Musculoskeletal/extremity: Extremities: grossly normal except: noted in the left calf: pain, swelling, tenderness, ROM: intact in all extremities, Circulation is intact in all extremities. Sensation intact. Weight bearing: able to fully bear weight, DVT Exam: pain, swelling, tenderness. Vital Signs: 10:53 BP 153 / 106; Pulse 118; Resp 18; Temp 97.5; Pulse Ox 100% ; Weight 86.18 kg; Height 5 vg1 ft. 11 in. (180.34 cm); Pain 6/10; 12:56 BP 180 / 99; Pulse 96; Resp 18; Pulse Ox 100% on R/A; ww 13:37 BP 144 / 91; Pulse 90; Resp 18; Pulse Ox 100% on R/A; ww 15:15 BP 118 / 83; Pulse 73; Resp 18; Pulse Ox 100% on R/A; ww 10:53 Body Mass Index 26.50 (86.18 kg, 180.34 cm) vg1 Adrian Coma Score: 12:56 Eye Response: spontaneous(4). Verbal Response: oriented(5). Motor Response: obeys ww commands(6). Total: 15. MDM: 11:26 Patient medically screened. kb 13:53 Data reviewed: vital signs, nurses notes. Data interpreted: Pulse oximetry: on room air kb is 100 %. Interpretation: normal. Counseling: I had a detailed discussion with the patient and/or guardian regarding: the historical points, exam findings, and any diagnostic results supporting the discharge/admit diagnosis, lab results, radiology results, the need for outpatient follow up, a family practitioner, to return to the emergency department if symptoms worsen or persist or if there are any questions or concerns that arise at home. 06/06 11:33 Order name: CBC with Diff kb 06/06 11:33 Order name: Basic Metabolic Panel; Complete Time: 12:23 kb 06/06 11:33 Order name: Protime (+inr); Complete Time: 12:00 kb 06/06 11:33 Order name: Ptt, Activated; Complete Time: 12:00 kb 06/06 11:34 Order name: CBC with Automated Diff; Complete Time: 11:56 EDMS 06/06 13:39 Order name: Glucose, Ancillary Testing; Complete Time: 13:41 EDMS 06/06 11:20 Order name: US Extremity Venous Unilateral Ltd; Complete Time: 12:41 kb 06/06 11:33 Order name: US LE Artery Uni Ltd; Complete Time: 12:36 kb 06/06 11:33 Order name: CT Chest For PE Angio; Complete Time: 13:02 kb Administered Medications: 11:50 Drug: Hertel (HYDROcodone-acetaminophen) 10 mg-325 mg 1 tabs Route: PO; ww 12:50 Drug: Insulin Regular Human 10 units {Co-Signature: iw (Corin Smith RN).} Route: ww IVP; Site: right antecubital; 13:00 Drug: NS 0.9% 1000 ml Route: IV; Rate: 1000 ml; Site: right antecubital; ww 14:30 Drug: Ketorolac 60 mg Route: IM; Site: right gluteus; ww Disposition: 19:51 Co-signature as Attending Physician, Jeremy Her MD I agree with the assessment and kdr plan of care. Disposition Summary: 06/06/21 13:54 Discharge Ordered Location: Home kb Condition: Stable kb Diagnosis - Chronic embolism and thrombosis of other specified deep vein of left lower extremitykb - Diabetes mellitus due to underlying condition with hyperglycemia kb Followup: kb - With: Emergency Department - When: As needed - Reason: Worsening of condition Followup: kb - With: Private Physician - When: 2 - 3 days - Reason: Recheck today's complaints, Continuance of care, Re-evaluation by your physician Discharge Instructions: - Discharge Summary Sheet kb - Deep Vein Thrombosis kb - Type 2 Diabetes Mellitus, Diagnosis, Adult, [id number] kb Forms: - Medication Reconciliation Form kb - Thank You Letter kb - Antibiotic Education kb - Prescription Opioid Use kb - Work release form kb Signatures: Dispatcher [employer] EDDE Eron, Rosita, RAGS LABORER-C RAGS LABORER-Ckb Jeremy Her MD MD kdr Garcia, Victoria, RN RN vg1 Christelle Villalpando RN RN ww Corin Smith RN iw
[2021-06-06] MEDS ORDERED: KETOROLAC 30 MG/ML INJ ONE (14:26)
[2021-06-06 16:03] VITALS: TEMP 97.5; O2SAT 100
[2021-06-06 16:07] VITALS: BP 118/83
== END 2021-06-06 15:20 | disposition home or self-care (01) ==
LOC: ER 10:47
DX: I82.532 Chronic embolism and thrombosis of left popliteal vein (principal); E11.65 Type 2 diabetes mellitus with hyperglycemia
CPT/HCPCS: 36415; 71275; 80048; 82947; 85025; 85610; 85730; 93926; 93971; 96372; 96374; 99284; J7030; Q9967

== ENCOUNTER 2021-12-29 12:30 | Emergency (ER) | payer SELFPAY ==
[2021-12-29] MEDS ORDERED: PANTOPRAZOLE 40 MG INJ ONE (13:27)
[2021-12-29] MEDS ORDERED: NA CHLORIDE 0.9% 1,000 ML ONE (13:27)
[2021-12-29 13:49] LABS: Absolute Lymphocytes (CBC) 2.5 K/uL (0.7-4.9); Hematocrit 44.3 % (39.6-49.0); Lymphocytes % 24.1 % (15.3-44.8); MCV 85.6 fL (80-100); MPV 7.6 fL (7.6-11.3); RBC Red Blood Cell Count 5.18 M/uL (4.33-5.43)
[2021-12-29 13:58] LABS: Albumin 4.1 g/dL (3.4-5.0); Bilirubin Total 0.4 mg/dL (0.2-1.0); Potassium 4.1 mmol/L (3.5-5.1); Protein, Total 8.4 g/dL (6.4-8.2)
--- NOTE | 2021-12-29 14:04 | RAD REPORT ---
EXAM DESCRIPTION: US - Extremity Venous Uni Ltd - 12/29/2021 1:58 pm CLINICAL HISTORY: Pain Leg swelling and edema. COMPARISON: Extremity Venous Uni Ltd dated 06/06/2021 FINDINGS: Left lower extremity venous system was interrogated with Doppler technique. Mild chronic t hrombus in the left popliteal vein noted. No new or acute DVT seen. IMPRESSION: Mild chronic thrombus left popliteal vein. No new or acute DVT present.
--- NOTE | 2021-12-29 14:23 | RAD REPORT ---
EXAM DESCRIPTION: CTAbdomen Pelvis W Contrast - 12/29/2021 2:16 pm CLINICAL HISTORY: Abdominal pain. abdominal pain COMPARISON: No comparisons TECHNIQUE: Biphasic CT imaging of the abdomen and pelvis was performed with 100 ml non-ionic IV cont rast. All CT scans are performed using dose optimization technique as appropriate and may include automated exposure control or mA/KV adjustment according to patient size. FINDINGS: The lung bases are clear. The liver, spleen, pancreas, adrenal glands and kidneys are within normal limits. Benign right renal cyst. No bowel obstruction, free air, free fluid or abscess. Small fat containing umbilical hernia. Moderat e stool is present throughout the colon. The appendix is normal. No evidence of significant lymphade nopathy. No suspicious bony findings. IMPRESSION: No acute intra-abdominal or pelvic finding.
[2021-12-29] MEDS ORDERED: TRAMADOL HCL 50 MG TAB ONE (14:39)
--- NOTE | 2021-12-29 15:00 | ER ---
Nurse's Notes [facility] Name: Dustin Granados Jr Age: 36 yrs Sex: Male : 1985 Arrival Date: 12/29/2021 Time: 12:32 Bed 18 Private MD: Sujata Olmedo Diagnosis: Abdominal pain, Generalized;Chronic embolism and thrombosis of unspecified deep veins of left lower extremity Presentation: 12/29 13:01 Chief complaint: Patient states: left leg is swollen up to his thigh and has been iw hurting more than usual X 3 weeks, takes pain pills for it but the past month he has a lot of gas , has been having diarrhea with blood in it for past week, blood is dark , has chronic blood clots in left leg , is on eliquis 5 mg. Coronavirus screen: At this time, the client does not indicate any symptoms associated with coronavirus-19. Ebola Screen: Patient negative for fever greater than or equal to 101.5 degrees Fahrenheit, and additional compatible Ebola Virus Disease symptoms Patient denies exposure to infectious person. Patient denies travel to an Ebola-affected area in the 21 days before illness onset. No symptoms or risks identified at this time. Initial Sepsis Screen: Does the patient meet any 2 criteria? No. Patient's initial sepsis screen is negative. Does the patient have a suspected source of infection? No. Patient's initial sepsis screen is negative. Risk Assessment: Do you want to hurt yourself or someone else? Patient reports no desire to harm self or others. 13:01 Method Of Arrival: Ambulatory iw 13:01 Acuity: NICHOLE 3 iw Triage Assessment: 13:30 General: Appears in no apparent distress. obese, well groomed, Behavior is calm, tw2 cooperative, appropriate for age. Pain: Complains of pain in left leg. Neuro: Level of Consciousness is awake, alert, obeys commands, Oriented to person, place, time, situation. Cardiovascular: Patient's skin is warm and dry. Respiratory: Airway is patent Respiratory effort is even, unlabored, Respiratory pattern is regular, symmetrical. GI: Reports lower abdominal pain, upper abdominal pain. Musculoskeletal: Range of motion: intact in all extremities, swelling noted to LEFT LE. Historical: - Allergies: 14:20 No Known Drug Allergies; tw2 - Home Meds: 13:07 Eliquis 5 mg Oral tab 1 tab 2 times per day [Active]; hydrocodone-acetaminophen 7.5-325 iw mg/15 mL Oral soln [Active]; losartan Oral [Active]; Lantus 100 unit/mL Sub-Q soln [Active]; - PMHx: 13:07 Diabetes - IDDM; Hypertension; left leg DVT; Myocardial infarction; iw - Immunization history:: Adult Immunizations. - Social history:: Smoking status: . Screenin:20 Abuse screen: Denies threats or abuse. Nutritional screening: No deficits noted. tw2 Tuberculosis screening: No symptoms or risk factors identified. Fall Risk None identified. Assessment: 13:30 Reassessment: see triage assessment. tw2 13:39 Reassessment: US at bedside. tw2 14:15 Reassessment: pt in CT at this time. tw2 14:33 Reassessment: Patient and/or family updated on plan of care and expected duration. Pain tw2 level reassessed. Patient is alert, oriented x 3, equal unlabored respirations, skin warm/dry/pink. provider notified of pain to LEFT calf, medicated per orders. Patient states symptoms have not improved. Vital Signs: 13:07 BP 165 / 120; Pulse 114; Resp 18 S; Temp 97.5; Pulse Ox 100% on R/A; iw 14:33 BP 134 / 90; Pulse 96; Resp 17; Pulse Ox 97% on R/A; tw2 15:10 BP 132 / 92; Pulse 98; Resp 17; Pulse Ox 99% on R/A; tw2 ED Course: 12:32 Patient arrived in ED. am2 12:33 Sujata Olmedo MD is Private Physician. am2 13:05 Rosita Littlejohn FNP-C is [facility]. kb 13:05 Jorge Botello MD is Attending Physician. kb 13:06 Triage completed. iw 13:10 Bed in low position. Call light in reach. Pulse ox on. NIBP on. tw2 13:18 Amie Gallagher, FENG is Primary Nurse. tw2 13:35 Inserted saline lock: 20 gauge in right antecubital area, using aseptic technique. tw2 Blood collected. 13:59 US Extremity Venous Unilateral Ltd In Process Unspecified. EDMS 14:18 CT Abd/Pelvis - IV Contrast Only In Process Unspecified. EDMS 14:20 Arm band placed on. tw2 15:10 No provider procedures requiring assistance completed. tw2 Administered Medications: 13:35 Drug: NS 0.9% 1000 ml Route: IV; Rate: 1 bolus; Site: right antecubital; tw2 15:18 Follow up: IV Status: Order to discontinue infusion; Order to discontinue infusion per tw2 pt. states "yeah i am ready to go"; IV Intake: 500ml 13:36 Drug: ProTONIX (pantoprazole) 40 mg Route: IVP; Site: right antecubital; tw2 14:33 Follow up: Response: No adverse reaction tw2 14:33 Drug: traMADol 50 mg Route: PO; tw2 15:18 Follow up: Response: No adverse reaction; Pain is decreased; RASS: Alert and Calm (0) tw2 Medication: 15:12 VIS not applicable for this client. tw2 Intake: 15:18 IV: 500ml; Total: 500ml. tw2 Outcome: 14:58 Discharge ordered by MD. carrasco 15:18 Discharged to home ambulatory. tw2 15:18 Condition: stable 15:18 Discharge instructions given to patient, Instructed on discharge instructions, follow up and referral plans. Demonstrated understanding of instructions, follow-up care. 15:19 Patient left the ED. tw2 Signatures: Dispatcher [employer] EDMS Rosita Littlejohn, ELIZABETH ROGERSP-Corin Mcrae, RN FENG iw Amie Gallagher RN RN tw2 Lakisha Carranza am2 Corrections: (The following items were deleted from the chart) 13:08 13:07 Pulse 114bpm; Resp 18bpm; Spontaneous; Pulse Ox 100% RA; Temp 97.5F; iw iw
--- NOTE | 2021-12-29 15:00 | EDPHYS ---
Physician Documentation [facility] Name: Dustin Granados Jr Age: 36 yrs Sex: Male : 1985 Arrival Date: 12/29/2021 Time: 12:32 Bed 18 Private MD: Sujata Olmedo ED Physician Jorge Botello HPI: 12/29 15:04 This 36 yrs old Black Male presents to ER via Ambulatory with complaints of Abdominal kb Pain, Leg Swelling. 15:04 The patient presents with abdominal pain that is diffuse. Onset: The symptoms/episode kb began/occurred 1 week(s) ago, and became worse 3 day(s) ago. The symptoms do not radiate. Associated signs and symptoms: Pertinent positives: blood in stools. The symptoms are described as constant. Modifying factors: The symptoms are alleviated by nothing, the symptoms are aggravated by nothing. Severity of pain: At its worst the pain was moderate in the emergency department the pain is unchanged. The patient has not experienced similar symptoms in the past. The patient has not recently seen a physician. 15:04 Pt reports blood in stool and abd pain for a week. States it was bright red at the kb beginning, then got darker. States he also has chronic left leg pain due to a DVT. Reports increased swelling to left leg. Historical: - Allergies: 14:20 No Known Drug Allergies; tw2 - Home Meds: 13:07 Eliquis 5 mg Oral tab 1 tab 2 times per day [Active]; hydrocodone-acetaminophen 7.5-325 iw mg/15 mL Oral soln [Active]; losartan Oral [Active]; Lantus 100 unit/mL Sub-Q soln [Active]; - PMHx: 13:07 Diabetes - IDDM; Hypertension; left leg DVT; Myocardial infarction; iw - Immunization history:: Adult Immunizations. - Social history:: Smoking status: . ROS: 15:00 Constitutional: Negative for fever, chills, and weight loss. kb 15:00 Abdomen/GI: Positive for abdominal pain, rectal bleeding. 15:00 MS/extremity: Positive for pain, swelling, of the left leg. 15:00 All other systems are negative. Exam: 15:00 Constitutional: This is a well developed, well nourished patient who is awake, alert, kb and in no acute distress. Head/Face: Normocephalic, atraumatic. ENT: Moist Mucous membranes Cardiovascular: Regular rate and rhythm with a normal S1 and S2. No gallops, murmurs, or rubs. No pulse deficits. Respiratory: Respirations even and unlabored. No increased work of breathing. Talking in full sentences Skin: Warm, dry with normal turgor. Normal color. Neuro: Awake and alert, GCS 15, oriented to person, place, time, and situation. Moves all extremities. Normal gait. Psych: Awake, alert, with orientation to person, place and time. Behavior, mood, and affect are within normal limits. 15:00 Abdomen/GI: Inspection: abdomen appears normal, Bowel sounds: normal, in all quadrants, Palpation: soft, in all quadrants, mild abdominal tenderness, in all quadrants. 15:00 Musculoskeletal/extremity: Extremities: grossly normal except: noted in the left leg: swelling, ROM: no acute changes, Circulation is intact in all extremities. Sensation intact. Weight bearing: able to fully bear weight. Vital Signs: 13:07 BP 165 / 120; Pulse 114; Resp 18 S; Temp 97.5; Pulse Ox 100% on R/A; iw 14:33 BP 134 / 90; Pulse 96; Resp 17; Pulse Ox 97% on R/A; tw2 15:10 BP 132 / 92; Pulse 98; Resp 17; Pulse Ox 99% on R/A; tw2 MDM: 13:10 Patient medically screened. kb 14:59 Data reviewed: vital signs, nurses notes. Data interpreted: Pulse oximetry: on room air kb is 97 %. Interpretation: normal. 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 12/29 13:11 Order name: CBC with Diff; Complete Time: 13:54 kb 12/29 13:11 Order name: CMP; Complete Time: 14:02 kb 12/29 13:11 Order name: Lipase; Complete Time: 14:02 kb 12/29 13:11 Order name: CT Abd/Pelvis - IV Contrast Only; Complete Time: 14:27 kb 12/29 13:11 Order name: US Extremity Venous Unilateral Ltd; Complete Time: 14:07 kb 12/29 13:11 Order name: IV Saline Lock; Complete Time: 13:38 kb 12/29 13:11 Order name: Labs collected and sent; Complete Time: 13:38 kb Administered Medications: 13:35 Drug: NS 0.9% 1000 ml Route: IV; Rate: 1 bolus; Site: right antecubital; tw2 15:18 Follow up: IV Status: Order to discontinue infusion; Order to discontinue infusion per tw2 pt. states "yeah i am ready to go"; IV Intake: 500ml 13:36 Drug: ProTONIX (pantoprazole) 40 mg Route: IVP; Site: right antecubital; tw2 14:33 Follow up: Response: No adverse reaction tw2 14:33 Drug: traMADol 50 mg Route: PO; tw2 15:18 Follow up: Response: No adverse reaction; Pain is decreased; RASS: Alert and Calm (0) tw2 Disposition: 17:04 Co-signature as Attending Physician, Jorge Botello MD. rn Disposition Summary: 12/29/21 14:58 Discharge Ordered Location: Home kb Condition: Stable kb Diagnosis - Abdominal pain, Generalized kb - Chronic embolism and thrombosis of unspecified deep veins of left lower extremity kb Followup: kb - With: Emergency Department - When: As needed - Reason: Worsening of condition Followup: kb - With: Private Physician - When: 2 - 3 days - Reason: Recheck today's complaints, Continuance of care, Re-evaluation by your physician Discharge Instructions: - Discharge Summary Sheet kb - Abdominal Pain, Adult, [id number] kb - Gastrointestinal Bleeding, [id number] kb Forms: - Medication Reconciliation Form kb - Thank You Letter kb - Antibiotic Education kb - Prescription Opioid Use kb Signatures: Dispatcher [employer] Rosita Hall FNP-C FNP-Corin Mcrae, RN Jorge Napoles MD MD rn Wise, Tara, RN RN tw2
[2021-12-29 15:36] VITALS: TEMP 97.5
[2021-12-29 15:38] VITALS: BP 132/92; O2SAT 99
== END 2021-12-29 15:19 | disposition home or self-care (01) ==
LOC: ER 12:30
DX: R10.84 Generalized abdominal pain (principal); I82.402 Acute embolism and thrombosis of unspecified deep veins of left lower extremity; E11.9 Type 2 diabetes mellitus without complications; I10 Essential (primary) hypertension; Z86.718 Personal history of other venous thrombosis and embolism; Z79.01 Long term (current) use of anticoagulants; Z79.4 Long term (current) use of insulin
CPT/HCPCS: 36415; 74177; 80053; 83690; 85025; 93971; 96361; 96374; 99284; C9113; J7030; Q9967

== ENCOUNTER 2022-12-23 18:41 | Emergency (ER) | payer OTHER ==
--- OUTSIDE RECORDS SUMMARY | 2022-12-23 18:45 | XMS REPORT | Continuity of Care Document ---
:1985 Author Organization [facility] t Address [address] [place] [address] [place] [id number] Care Team Providers Name Role Phone JAYDA, CRISTIANA Primary Care Physician Unavailable Sujata Olmedo Attending Clinician Unavailable Mauricio Wong Attending Clinician Unavailable CHRISTELLE JETER Attending Clinician Unavailable Christelle Jeter MD Attending Clinician Lisa Rondon Attending Clinician LISA FLOYD Attending Clinician Unavailable JOSE MARTIN Attending Clinician Unavailable CHRISTELLE JETER Admitting Clinician Unavailable LISA FLOYD Admitting Clinician Unavailable Problems Condition Condition Condition Status Onset Resolution Last Treating Co mments Source Name Details Category Date Date Treatment Clinician Date No known No known Disease Unive rs active active ity of problems problems [facility] [id number] Recurrent Problem Active Com mon deep vein Spirit thrombosis - [facility] (DVT) of St left lower [facility] [id number] HTN, goal Problem Active Comm on below Spirit 130/80 - [facility] [id number] Type 2 Problem Active Common diabetes Spirit mellitus - [facility] with other [facility] complicati Medica l on, Center without long-term current use of insulin [id number] Mixed Problem Active Common hyperlipid Spirit emia - [facility] [id number] Diabetic Problem Active Comm on polyneurop Spirit athy - [facility] associated St with type [facility] 2 diabetes Medica mellitus Center [id number] Body mass Problem Active Com mon index Spirit (BMI) of - [facility] 40.0 to 44.9 in [facility] [id number] History of Problem Active Co mmon pulmonary Spirit embolism - [facility] [id number] Edema of Problem Active Comm on left lower Spirit extremity - [facility] [id number] Other Problem Active Common chronic Spirit pain - [facility] Allergies, Adverse Reactions, Alerts Allergy Allergy Status Severity Reaction(s) Onset Inactive Treating Comm ents Source Name Type Date Date Clinician NO KNOWN Drug Active Univers ALLERGIE Class ity of [place] [facility] [place] Social History Social Habit Start Date Stop Date Quantity Comments Source History of Current Smoker Common Spi rit - Tobacco Use [facility] Sex Assigned At Common Sp yoana - [facility] Exposure to 2022-06-08 2022-06-18 Not sure [facility] SARS-CoV-2 00:00:00 19:45:00 [facility] (event) Branch Smoking Status Start Date Stop Date Source Current Smoker 2021-11-12 00:00:00 Common Spiri t [facility] nter Tobacco smoking consumption [facility] unknown Branch Medications Ordered Filled Start Stop Current Ordering Indication Dosage Frequency Signature Comments Components Source Medication Medication Date Date Medication? Clinician (SIG) Name Name ondansetron 2021-06 No 4mg 4 mg, Slow Univers (ZOFRAN 06-19 IV Push, ity of (PF)) 03:45: 02:49 ONCE, 1 [place] injection 4 00 :00 dose, On Medi brett mg Wed Branch 06/18/22 at 2145, ZION morpHINE (4 2021-06 No 4mg 4 mg, Slow Univers mg/mL) 06-19 IV Push, ity of injection 4 03:45: 02:49 [place] :[place] dose, On Medical Wed Branch 06/18/22 at 2145, STAT HYDROcodone 2022-1 2022- No 1{tbl} 1 tablet, Univers -acetaminop -19 06- Oral, ity of hen (NORCO) 02:45: 01:58 [place] 10-325 mg [place] :00 dose, On Medica l tablet 1 Wed Branch tablet 06/18/22 at 2044, Routine amoxicillin 2021-06- No 1{tbl} 1 tablet, Univers -clavulanat -06-19 Oral, ity of e 02:45: 01:58 ONCE, 1 [place] (AUGMENTIN) 00 :00 dose, On Medi brtet 875-125 mg Thu Branch per tablet 06/18/22 1 tablet at 2044, Routine
Reason for Anti-Infec tive: Documented Infection< br>Documen heber Infection Site: Vascular<b r>Duration of Therapy: Other (see Comments) amoxicillin 2021-06 Yes [id number] 1{tbl} Take 1 Univers -clavulanat - tablet by ity of e 875-125 00:00: mouth [place] mg per 00 every 12 Medical tablet (twelve) Branch hours. Gabapentin Gabapentin No 1{capsu TID Gabapentin 300 MG 300 MG 3-10 le} 300 MG 00:00: 00 Gabapentin Gabapentin No 1{capsu TID Gabapentin 300 MG 300 MG 3-10 le} 300 MG 00:00: 00 metFORMIN metFORMIN No 1{table BID metFORMIN HCl 1000 MG HCl 1000 MG 1-10 t_with_ HCl 1000 00:00: a_meal} MG 00 insulin Yes 60U inject 60 Unive rs glargine,hu 1-26 Units ity of m.rec.anlog 02:02: [place] (LANTUS [place] 58 skin. [facility] Branch GLIMEPIRIDE Yes Take by Uni vers ORAL - mouth. ity of 02:02: [address] apixaban Yes Take by Univer s (ELIQUIS - mouth. ity of ORAL) 02:02: [address] Hydrocodone Yes Take by Uni vers -Acetaminop - mouth. ity of hen 7.5-300 02:02: [place] mg tablet 58 [facility] Branch losartan Yes Take by [facility] potassium -26 mouth. ity of (LOSARTAN 02:02: [place] ORAL) Medical [place] gabapentin Yes 300mg Take 300 Un josé 300 mg 1-26 mg by ity of capsule 02:02: mouth 2 [place] [address] (two) Medical times [place] daily as needed. FENTanyl PF 2020- No [...] al mg 07/16/20 at Branch 1999, ZION gabapentin Yes 300mg Take 300 Un josé 300 mg 1-25 mg by ity of capsule 20:02: mouth 2 [place] [address] (two) [facility] times [place] daily as needed. insulin Yes 60U inject 60 [facility] rs glargine,hu 1-25 Units ity of m.rec.anlog 20:02: under the [place] (LANTUS [place]) 58 skin. [facility] Branch GLIMEPIRIDE Yes Take by Uni vers ORAL 1-25 mouth. ity of 20:02: [address] apixaban Yes Take by [facility] s (ELIQUIS 1-25 mouth. ity of ORAL) 20:02: [address] Hydrocodone Yes Take by Uni vers -Acetaminop -25 mouth. ity of hen 7.5-300 20:02: [place] mg tablet 58 Medical Branch losartan Yes Take by [facility] [place] [facility] potassium -25 mouth. ity of (LOSARTAN 20:02: [place] ORAL) Medical Branch cyclobenzap Yes [id number] 10mg Take 1 Univers rine 10 mg 1-25 tablet by ity of tablet 00:00: mouth 2 [place] [address] (two) Medical times [place] daily as needed for Muscle Spasms. cyclobenzap Yes [id number] 10mg Take 1 Univers rine 10 mg 1-25 tablet by ity of tablet 00:00: mouth 2 [place] 00 (two) [facility] times Branch daily as needed for Muscle Spasms. Toradol Toradol No 30mg Common (Ketorolac) (Ketorolac) 9-09 S pirit 00:00: - [facility] Toradol Toradol 0 No 30mg Common (Ketorolac) (Ketorolac) 9 S pirit 00:00: - [facility] Toradol Toradol 0 No 30mg Common (Ketorolac) (Ketorolac) 9 S pirit 00:00: [facility] Toradol Toradol No 30mg Common (Ketorolac) (Ketorolac) 9 S pirit 00:00: - [facility] Lovastatin Lovastatin Yes Delmi 1 tablet Common 4-30 Miguel with the Spirit 00:00: evening - 00 meal [facility] Lantus Lantus 0 Yes Delmi 30 units Com mon SoloStar SoloStar 10-10 Miguel Spirit 00:00: - [facility] Lantus Lantus No QD Lantus SoloStar SoloStar 21 SoloStar 100 UNIT/ML 100 UNIT/ML 00:00: 100 00 UNIT/ML No known No Univers medications ity of [facility] Lantus Lantus Yes Delmi 32 units Commo n Miguel [facility] Eliquis 5 Eliquis 5 Yes Delmi 1 tablet Common mg mg Miguel [facility] Losartan Losartan Yes Delmi 1 tablet C ommon Potassium Potassium Miguel Spir [facility] Glimepiride Glimepiride Yes Delmi 1 tablet Common Miguel with Spirit breakfast - [facility]I or the [facility] meal of Medical the day [place] Acetaminoph Acetaminoph Yes Delmi 1 tablet Common en en Miguel as needed [facility] Lovastatin Lovastatin No QD Lovastatin 20 MG 20 MG 20 MG Eliquis 5 Eliquis 5 No 1{table Eliquis 5 mg 5 mg mg 5 mg t} mg 5 mg Gabapentin Gabapentin No 1{capsu TID Gabapentin 300 MG 300 MG le} 300 MG Glimepiride Glimepiride No 1{table BID Glimepirid 4 MG 4 MG t_with_ e [address]_or_t he_firs t_main_ meal_of _the_da y} Losartan Losartan No 1{table QD Losartan Potassium Potassium t} Potassium 25 MG 25 MG 25 MG metFORMIN metFORMIN No 1{table BID metFORMIN HCl 1000 MG HCl 1000 MG t_with_ HCl 1000 a_meal} MG Gabapentin Gabapentin No 1{capsu TID Gabapentin 100 MG 100 MG le} 100 MG Glimepiride Glimepiride No 1{table BID Glimepirid 4 MG 4 MG t_with_ e [address]_or_t he_firs t_main_ meal_of _theda y} Acetaminoph Acetaminoph No 1{table QID Acetaminop en 500 MG en 500 MG t_as_ne hen 500 MG eded} Losartan Losartan No 1{table QD Losartan Potassium Potassium t} Potassium 25 MG 25 MG 25 MG Lovastatin Lovastatin No QD Lovastatin 20 MG 20 MG 20 MG Eliquis 5 Eliquis 5 No 1{table Eliquis 5 mg 5 mg mg 5 mg t} mg 5 mg Glimepiride Glimepiride No 1{table BID Glimepirid 4 MG 4 MG t_with_ e [address]_or_t he_firs t_main_ meal_of _theda y} Eliquis 5 Eliquis 5 No 1{table Eliquis 5 mg 5 mg mg 5 mg t} mg 5 mg metFORMIN metFORMIN No 1{table BID metFORMIN HCl 1000 MG HCl 1000 MG t_with_ HCl 1000 a_meal} MG Losartan Losartan No 1{table QD Losartan Potassium Potassium t} Potassium 25 MG 25 MG 25 MG Lovastatin Lovastatin No QD Lovastatin 20 MG 20 MG 20 MG Glimepiride Glimepiride No 1{table BID Glimepirid 4 MG 4 MG t_with_ e [address]_or_t he_firs t_main_ meal_of _theda y} Eliquis 5 Eliquis 5 No 1{table Eliquis 5 mg 5 mg mg 5 mg t} mg 5 mg metFORMIN metFORMIN No 1{table BID metFORMIN HCl 1000 MG HCl 1000 MG t_with_ HCl 1000 a_meal} MG Losartan Losartan No 1{table QD Losartan Potassium Potassium t} Potassium 25 MG 25 MG 25 MG Lovastatin Lovastatin No QD Lovastatin 20 MG 20 MG 20 MG Glimepiride Glimepiride No 1{table BID Glimepirid 4 MG 4 MG t_with_ e [address]_or_t he_firs t_main_ meal_of _the_da y} Losartan Losartan No 1{table QD Losartan Potassium Potassium t} Potassium 25 MG 25 MG 25 MG metFORMIN metFORMIN No 1{table BID metFORMIN HCl 1000 MG HCl 1000 MG t_with_ HCl 1000 a_meal} MG Gabapentin Gabapentin No 1{capsu TID Gabapentin 300 MG 300 MG le} 300 MG Lovastatin Lovastatin No QD Lovastatin 20 MG 20 MG 20 MG Eliquis 5 Eliquis 5 No 1{table Eliquis 5 mg 5 mg mg 5 mg t} mg 5 mg Vital Signs Vital Name Observation Time Observation Value Comments Source Systolic blood 2022-06-19 03:41:00 134 mm[Hg] Univer [facility] pressure [facility] Diastolic blood 2022-06-19 03:41:00 105 mm[Hg] [facility] Heart rate 2022-06-19 03:00:00 82 /min [facility] Respiratory rate 2022-06-19 03:00:00 17 /min [facility] Oxygen saturation in 2022-06-19 03:00:00 91 /min [facility] Arterial blood by [facility] Pulse oximetry Branch Body temperature 2022-06-19 01:46:00 37.56 [facility] Body height 2022-06-19 01:46:[address] [facility] Body weight 2022-06-19 01:46:[address] [facility] BMI 2022-06-19 01:46:00 38.35 kg/m2 [facility] height 2021-08-29 08:00:00 71 [in_i] Common [facility] weight 2021-08-29 08:00:00 298.4 [lb_av] Common [facility] temperature 2021-08-29 08:00:00 98.1 [degF] Common [facility] bmi 2021-08-29 08:00:00 41.61 kg/m2 [facility] oximetry 2021-08-29 08:00:00 97 % Common [facility] respiratory rate 2021-08-29 08:00:00 18 /min Comm on [facility] blood pressure 2021-08-29 08:00:00 138 mm[Hg] Common [facility] - systolic [facility] blood pressure 2021-08-29 08:00:00 82 mm[Hg] Common [facility] diastolic [facility] height 2021-07-01 08:20:00 71 [in_i] [facility] weight 2021-07-01 08:20:00 303.4 [lb_av] [facility] temperature 2021-07-01 08:20:00 97.9 [degF] Common [facility] bmi 2021-07-01 08:20:00 42.31 kg/m2 [facility] oximetry 2021-07-01 08:20:00 98 % [facility] respiratory rate 2021-07-01 08:20:00 18 /min Comm on [facility] blood pressure 2021-07-01 08:20:00 136 mm[Hg] Common [facility] systolic [facility] blood pressure 2021-07-01 08:20:00 84 mm[Hg] Common [facility] diastolic [facility] Systolic blood 2020-07-17 02:22:00 147 mm[Hg] Univer [facility] Diastolic blood 2020-07-17 02:22:00 98 mm[Hg] Unive rsity [facility] Heart rate 2020-07-17 02:22:00 87 /min [facility] Res[facility] rate 2020-07-17 02:22:00 18 /min Univ [facility] [place] [facility] Oxygen saturation in 2020-07-17 02:22:00 99 /min University of Arterial blood by [place] Medi brett Pulse oximetry Branch Heart rate 2020-07-16 22:11:00 90 /min [facility] [place] [facility] Body temperature 2020-07-16 22:11:00 37.28 Cathy [facility] [place] [facility] Respiratory rate 2020-07-16 22:11:00 20 /min Univ [facility] [place] [facility] Body weight 2020-07-16 22:11:00 142.883 kg [facility] [place] [facility] BMI 2020-07-16 22:11:00 43.93 kg/m2 [facility] [place] [facility] Oxygen saturation in 2020-07-16 22:11:00 99 /min University of Arterial blood by [place] Medi brett Pulse oximetry Branch Systolic blood 2020-07-16 22:11:00 166 mm[Hg] Univer sity of pressure [place] [facility] Diastolic blood 2020-07-16 22:11:00 114 mm[Hg] Unive rsity of pressure [place] [facility] Systolic blood 2020-07-17 02:22:00 147 mm[Hg] Univer sity of pressure [place] [facility] Diastolic blood 2020-07-17 02:22:00 98 mm[Hg] Unive rsity of pressure [place] [facility] Heart rate 2020-07-17 02:22:00 87 /min [facility] [place] [facility] Respiratory rate 2020-07-17 02:22:00 18 /min Univ [facility] [place] [facility] Oxygen saturation in 2020-07-17 02:22:00 99 /min University of Arterial blood by [place] Medi brett Pulse oximetry Branch Heart rate 2020-07-16 22:11:00 90 /min [facility] [place] [facility] Body temperature 2020-07-16 22:11:00 37.28 Cathy [facility] [place] [facility] Respiratory rate 2020-07-16 22:11:00 20 /min Univ [facility] [place] [facility] Body weight 2020-07-16 22:11:00 142.883 kg [facility] [place] [facility] BMI 2020-07-16 22:11:00 43.93 kg/m2 [facility] [place] [facility] Oxygen saturation in 2020-07-16 22:11:00 99 /min University Arterial blood by [facility] Pulse oximetry Branch Systolic blood 2020-07-16 22:11:00 166 mm[Hg] Kendra sit of pressure [facility] Diastolic blood 2020-07-16 22:11:00 114 mm[Hg] [facility] Procedure Date / Time Performed Performing Clinician Sour e COMP. METABOLIC PANEL 2022-06-19 01:57:00 [id number] [place] CBC WITH DIFF 2022-06-19 01:57:00 Christelle Jeter [facility] CONSENT/REFUSAL FOR 2022-06-19 01:31:40 Doctor Unassigned, No [facility] DIAGNOS[facility] AND Name Medical [place] TREATMENT XR LUMBAR SPINE 3 VW 2020-07-17 00:14:38 Lisa Floyd [facility] UNILATERAL VENOUS 2020-07-16 23:02:[address] [facility] DUPLEX LOWER EXTREMITY Medical [place] BY VASCULAR LAB NOTICE OF PRIVACY 2020-07-16 22:20:23 Doctor Unassigned, No Univ ersity [facility] PRACTICES Name [facility] CONSENT/REFUSAL FOR 2020-07-16 22:20:07 Doctor Unassigned, No [facility] AND Name [facility] TREATMENT Encounters Start End Encounter Admission Attending Care Care Encounter Source Date/Time Date/Time Type Type Clinicians Facility Department ID 2022-03-17 Outpatient Olmedo, STLMLC STLMLC [id number] Common 14:57:01 Sujata [facility] 2022-02-17 Outpatient Olmedo, STLMLC STLMLC [id number] Common 10:01:01 Sujata [facility] 2021-10-30 Outpatient Olmedo, STLMLC STLMLC [id number] Common 09:58:00 Sujata [facility] 2021-08-28 Outpatient Olmedo, STLMLC STLMLC [id number] Common 08:58:01 Sujata [facility] 2021-07-17 Outpatient Olmedo, STLMLC STLMLC [id number] Common 14:33:35 Sujata [facility] 2021-07-17 Outpatient Olmedo, STLMLC STLC [id number] Common 14:30:04 Sujata [facility] 2021-07-17 Outpatient Wong, STLMLC STLC [id number] Common 14:14:50 Mauricio [id number] [facility] 2021-07-17 Outpatient Wong, STLMLC STLC [id number] Common 14:14:29 Mauricio [id number] [facility] 2021-07-17 Outpatient Wong, STLMLC STLC [id number] Common 14:02:28 Mauricio [id number] [facility] 2021-07-17 Outpatient Wong, STLMLC STLC [id number] Common 11:58:28 Mauricio [id number] [facility] 2021-07-17 Outpatient Wong, STLMLC STLC [id number] Common 11:58:09 Mauricio [id number] [facility] 2021-07-17 Outpatient Wong, STLMLC STLC [id number] Common 11:19:47 Mauricio [id number] [facility] 2021-07-17 Outpatient Wong, STLMLC STLC [id number] Common 11:19:40 Mauricio [id number] [facility] 2022-06-18 2022-06-18 Emergency X ALLYSON TNJORGE ERT [id number] Univers 19:43:00 21:43:00 [facility] 2022-[facility] 2022-06-18 [facility] [id number] Univers 19:43:00 21:43:00 Christelle TEJADA [id number] [facility] [id number] [facility] [id number] [place] [address] Branch 2022-02-17 2022-02-17 [facility] [id number] Co mmon 00:00:00 00:00:00 [facility] 2021-10-31 2021-10-31 (TEL) STLMLC STLMLC [id number] Co mmon 00:00:00 00:00:00 [facility] 2021-09-02 2021-09-02 (TEL) STLMLC STLMLC [id number] Co mmon 00:00:00 00:00:00 [facility] 2021-08-29 2021-08-29 OFFICE STLMLC STLMLC [id number] Co mmon 00:00:00 00:00:00 VISIT EST Spir it PT LEVEL 3 [facility] 2021-07-01 2021-07-01 OFFICE STLMLC STLMLC [id number] Co mmon 00:00:00 00:00:00 VISIT EST Spir it PT LEVEL 3 - [facility] 2020-07-16 2020-07-16 Emergency [facility] [id number] Univers 16:22:00 20:29:00 Lisa Tejada [id number] i ty [facility] [id number] [facility] [id number] [address] 2020-07-16 2020-07-16 Emergency X [facility] ERT [id number] Univers 16:22:00 20:29:00 LISA giordano [facility] 2020-07-16 2020-07-16 Emergency [facility] [id number] 16:22:00 20:29:00 Lisa Tejada [id number] [place] [id number] [place] [id number] 2020-04-05 2020-04-05 Outpatient STLMLC STLMLC [id number] Common 00:00:00 00:00:00 [facility] 2020-03-28 2020-03-28 Outpatient STLMLC STLMLC [id number] Common 00:00:00 00:00:00 [facility] 2020-02-29 2020-02-29 [id number] Common 15:00:00 15:00:[address] Sp[address] [facility] 2020-02-29 2020-02-29 [facility] [id number] Common 12:06:00 12:06:[address] [address] Sp[address] [facility] 2020-01-19 2020-01-19 [facility] [id number] Common 14:30:00 14:30:[address] [address] Sp[address] [facility] 2019-10-20 2019-10-20 [facility] [id number] Common 14:45:00 14:45:[address] [address] Sp[address] [facility] 2019-10-11 2019-10-11 [facility] [id number] Common 14:20:00 14:20:[address] [address] Sp[address] [facility] 2019-09-20 2019-09-20 [facility] [id number] Common 10:15:00 10:15:[address] [address] Sp[address] [facility] 2019-09-19 2019-09-19 [facility] [id number] Common 13:48:00 13:48:[address] [address] Sp[address] [facility] 2019-02-25 2019-02-25 [facility] [id number] Common 08:45:00 08:45:[address] [address] Sp[address] [facility] 2019-01-12 2019-01-12 [facility] [id number] Common 13:46:00 13:46:[address] [address] Sp[address] [facility] 2019-01-06 2019-01-06 [facility] [id number] Common 13:30:00 13:30:[address] [address] Sp[address] [facility] 2002-09-04 2002-09-04 Emergency ER VERONICA, [facility] [id number] [place] 15:49:00 16:35:00 JOSE [id number] [facility] Results Test Description Test Time Test Comments Results Result Comments Source HEMOGLOBIN A1C 2021-07-01 00:00:00 Test Item Value Reference Range Interpretation Comme nts A1C (test code = 4548-4) 13.1 XR LUMBAR SPINE 3 [id number] 01:53:33 No acute osseous abnormality RL: [id number] End of Report Ordering Physician: LISA FLOYD HISTORY: Lower back [...] BUNDYISTORY: Lower back painTECHNIQUE: Frontal, lateral and conedlateral viewsCOMPARISON: noneFINDINGS: There is no acute fracture or dislocation. There is normal alignmentwithout subluxation. The heights of the vertebral bodies are maintained. There is no spondylolysis. The disk heights are preserved. IMPRESSIONNo acute osseous abnormalityRL: [id number] of Report [facility]
[2022-12-23] MEDS ORDERED: KETOROLAC 30 MG/ML INJ ONE (20:11)
--- NOTE | 2022-12-23 20:50 | RAD REPORT ---
EXAM DESCRIPTION: MEGHAChest Single View12/23/2022 8:27 pm CLINICAL HISTORY: right shoulder pain COMPARISON: Chest Single View dated 09/28/2020; Chest Single View dated 11/16/2018; Chest Single View d ated 09/21/2017; Chest Single View dated 07/21/2017 TECHNIQUE: Portable AP view of the chest. FINDINGS: The lungs are clear. No pneumothorax or effusion. The cardiomediastinal contours are unrem arkable. IMPRESSION: No acute cardiopulmonary process.
--- NOTE | 2022-12-23 20:57 | ER ---
Nurse's Notes [facility] Name: Dustin Granados Jr Age: 37 yrs Sex: Male : 1985 Arrival Date: 12/23/2022 Time: 18:41 Bed 12 Private MD: Diagnosis: Strain of muscle(s) and tendon(s) of the rotator cuff of right shoulder Presentation: 12/23 19:27 Chief complaint: Patient states: Right shoulder pain, fell yesterday, does not want to nj1 provide details. States went to [facility], had xray, told it was just arthritis. Pt states pain is worse, can move arm but hurts to bad. Coronavirus screen: Vaccine status: Patient reports receiving the 2nd dose of the covid vaccine. Ebola Screen: Patient denies travel to an Ebola-affected area in the 21 days before illness onset. Initial Sepsis Screen: Does the patient meet any 2 criteria? No. Patient's initial sepsis screen is negative. Does the patient have a suspected source of infection? No. Patient's initial sepsis screen is negative. Risk Assessment: Do you want to hurt yourself or someone else? Patient reports no desire to harm self or others. Onset of symptoms was December 22, 2022. 19:27 Method Of Arrival: Ambulatory banner 19:27 Acuity: NICHOLE 3 nj1 Triage Assessment: 20:38 General: Appears in no apparent distress. Behavior is calm, cooperative. Pain: kd3 Complains of pain in right arm. Historical: - Allergies: 19:29 No Known Allergies; nj1 - PMHx: 19:29 Diabetes - IDDM; Hypertension; left leg DVT; Myocardial infarction; nj1 - PSHx: 19:29 None; nj1 - Immunization history:: Client reports receiving the 2nd dose of the Covid vaccine. - Social history:: Smoking status: Patient denies any tobacco usage or history of. Screenin:38 [facility] ED Fall Risk Assessment (Adult) History of falling in the last 3 months, kd3 including since admission No falls in past 3 months (0 pts) Confusion or Disorientation No (0 pts) Intoxicated or Sedated No (0 pts) Impaired Gait No (0 pts) Mobility Assist Device Used No (0 pt) Altered Elimination No (0 pt) Score/Fall Risk Level 0 - 2 = Low Risk Maintained a safe environment. Abuse screen: Denies threats or abuse. Denies injuries from another. Nutritional screening: No deficits noted. Tuberculosis screening: No symptoms or risk factors identified. Vital Signs: 19:27 BP 138 / 85; Pulse 84; Resp 18; Temp 99.1(O); Pulse Ox 100% on R/A; Weight 131.54 kg; nj1 Height 5 ft. 11 in. ; Pain 10/10; 19:27 Body Mass Index 40.45 (131.54 kg, 180.34 cm) ok1 19:27 Pain Scale: Adult banner ED Course: 18:43 Patient arrived in ED. ts1 19:03 Morelia Nino FNP-C [facility]. snw 19:03 Jeyson Calix MD is Attending Physician. snw 19:29 Triage completed. nj1 19:30 Arm band placed on left wrist. nj1 20:01 Lisa Barnett, RN is Primary Nurse. kd3 20:29 Chest Single View XRAY In Process Unspecified. EDMS 20:38 Patient has correct armband on for positive identification. kd3 20:38 No provider procedures requiring assistance completed. Patient did not have IV access kd3 during this emergency room visit. Administered Medications: 20:10 Drug: Ketorolac IM 30 mg Route: IM; Site: right deltoid; kd3 21:26 Follow up: Response: No adverse reaction kd3 Medication: 20:38 VIS not applicable for this client. kd3 Outcome: 20:56 Discharge ordered by . snw 21:25 Discharged to home ambulatory. kd3 21:25 Condition: stable 21:25 Discharge instructions given to patient, family, Instructed on discharge instructions, follow up and referral plans. medication usage, Demonstrated understanding of instructions, follow-up care, medications, Prescriptions given X 1. 21:26 Patient left the ED. kd3 Signatures: Dispatcher [employer] EDMS Morelia Nino FNP-C MEAT SELECTOR-Csnw Lisa Barnett RN RN kd3 Darlene Chow RN RN nj1 Maureen Estrada PAS PAS ts1
--- NOTE | 2022-12-23 20:57 | EDPHYS ---
Physician Documentation [facility] Name: Dustin Granados Jr Age: 37 yrs Sex: Male : 1985 Arrival Date: 12/23/2022 Time: 18:41 Bed 12 Private MD: ED Physician Jeyson Calix HPI: 12/23 21:22 This 37 yrs old Black Male presents to ER via Ambulatory with complaints of Shoulder snw Pain. 21:22 The patient or guardian complains of decreased range of motion, an injury, pain, that snw is acute. right shoulder. Context: resulted from pulling against something and then fell. Associated signs and symptoms: Pertinent positives: pain to right shoulder and decreased ROM. Treatment prior to arrival includes: had x-ray of right shoulder at [facility]. The patient has not experienced similar symptoms in the past. as noted. Historical: - Allergies: 19:29 No Known Allergies; nj1 - PMHx: 19:29 Diabetes - IDDM; Hypertension; left leg DVT; Myocardial infarction; nj1 - PSHx: 19:29 None; nj1 - Immunization history:: Client reports receiving the 2nd dose of the Covid vaccine. - Social history:: Smoking status: Patient denies any tobacco usage or history of. ROS: 21:21 Constitutional: Negative for fever, chills, and weight loss, Eyes: Negative for injury, snw pain, redness, and discharge, ENT: Negative for injury, pain, and discharge, Neck: Negative for injury, pain, and swelling, Cardiovascular: Negative for chest pain, palpitations, and edema, Respiratory: Negative for shortness of breath, cough, wheezing, and pleuritic chest pain, Abdomen/GI: Negative for abdominal pain, nausea, vomiting, diarrhea, and constipation, Back: Negative for injury and pain, : Negative for injury, bleeding, discharge, and swelling, Skin: Negative for injury, rash, and discoloration, Neuro: Negative for headache, weakness, numbness, tingling, and seizure, Psych: Negative for depression, anxiety, suicide ideation, homicidal ideation, and hallucinations. 21:21 MS/extremity: Positive for injury or acute deformity, decreased range of motion, pain, of the right arm and anterior aspect of right shoulder. Exam: 20:23 Constitutional: This is a well developed, well nourished patient who is awake, alert, snw and in no acute distress. Head/Face: Normocephalic, atraumatic. Eyes: Pupils equal round and reactive to light, extra-ocular motions intact. Lids and lashes normal. Conjunctiva and sclera are non-icteric and not injected. Cornea within normal limits. Periorbital areas with no swelling, redness, or edema. ENT: Nares patent. No nasal discharge, no septal abnormalities noted. Tympanic membranes are normal and external auditory canals are clear. Oropharynx with no redness, swelling, or masses, exudates, or evidence of obstruction, uvula midline. Mucous membranes moist. Neck: Trachea midline, no thyromegaly or masses palpated, and no cervical lymphadenopathy. Supple, full range of motion without nuchal rigidity, or vertebral point tenderness. No Meningismus. Chest/axilla: Normal chest wall appearance and motion. Nontender with no deformity. No lesions are appreciated. Cardiovascular: Regular rate and rhythm with a normal S1 and S2. No gallops, murmurs, or rubs. Normal PMI, no JVD. No pulse deficits. Respiratory: Lungs have equal breath sounds bilaterally, clear to auscultation and percussion. No rales, rhonchi or wheezes noted. No increased work of breathing, no retractions or nasal flaring. Abdomen/GI: Soft, non-tender, with normal bowel sounds. No distension or tympany. No guarding or rebound. No evidence of tenderness throughout. Back: No spinal tenderness. No costovertebral tenderness. Full range of motion. Skin: Warm, dry with normal turgor. Normal color with no rashes, no lesions, and no evidence of cellulitis. Neuro: Awake and alert, GCS 15, oriented to person, place, time, and situation. Cranial nerves II-XII grossly intact. Motor strength 5/5 in all extremities. Sensory grossly intact. Cerebellar exam normal. Normal gait. Psych: Awake, alert, with orientation to person, place and time. Behavior, mood, and affect are within normal limits. 20:23 Musculoskeletal/extremity: Extremities: grossly normal except: noted in the anterior aspect of right shoulder: decreased ROM, tenderness, ROM: limited active range of motion due to pain, in the right arm, limited passive range of motion due to pain, Circulation is intact in all extremities. Vital Signs: 19:27 BP 138 / 85; Pulse 84; Resp 18; Temp 99.1(O); Pulse Ox 100% on R/A; Weight 131.54 kg; nj1 Height 5 ft. 11 in. ; Pain 10/10; 19:27 Body Mass Index 40.45 (131.54 kg, 180.34 cm) nj 19:27 Pain Scale: Adult nj1 MDM: 19:12 Patient medically screened. snw 21:21 Differential diagnosis: tendonitis, rotator cuff tear. Data reviewed: vital signs, snw nurses notes, radiologic studies. Counseling: I had a detailed discussion with the patient and/or guardian regarding: the historical points, exam findings, and any diagnostic results supporting the discharge/admit diagnosis, radiology results, the need for outpatient follow up, for definitive care, to return to the emergency department if symptoms worsen or persist or if there are any questions or concerns that arise at home. Response to treatment: the patient's symptoms have mildly improved after treatment. Special discussion: I have referred the patient to see his PCP for further evaluation of high blood pressure. Based on the history and exam findings, there is no indication for further emergent testing or inpatient evaluation. I discussed with the patient/guardian the need to see the orthopedic surgeon for further evaluation of the symptoms. I discussed with the patient/guardian the need to see the primary care provider for further evaluation of the symptoms. 12/23 19:38 Order name: Chest Single View XRAY; Complete Time: 20:55 snw 12/23 19:58 Order name: Shoulder Immobilizer; Complete Time: 20:15 snw Administered Medications: 20:10 Drug: Ketorolac IM 30 mg Route: IM; Site: right deltoid; kd3 21:26 Follow up: Response: No adverse reaction kd3 Disposition Summary: 12/23/22 20:56 Discharge Ordered Location: Home snw Condition: Stable snw Diagnosis - Strain of muscle(s) and tendon(s) of the rotator cuff of right shoulder snw Followup: snw - With: Emergency Department - When: As needed - Reason: Worsening of condition Followup: snw - With: Private Physician - When: 2 - 3 days - Reason: Recheck today's complaints, Continuance of care, Re-evaluation by your physician Discharge Instructions: - Discharge Summary Sheet snw - Rotator Cuff Tear snw - Rotator Cuff Tendinitis snw - How to Use a Shoulder Immobilizer snw Forms: - Medication Reconciliation Form snw - Thank You Letter snw - Antibiotic Education snw - Prescription Opioid Use snw - [email or web address] snw - Work release form kd3 Prescriptions: - Diclofenac Sodium 75 mg Oral Tablet Sustained Release - take 1 tablet by ORAL route 2 times per day; 30 tablet; Refills: 0, Product snw Selection Permitted Signatures: Dispatcher [employer] EDMorelia Mo, CHLOÉ-C UNDERGROUND UTILITY LOCATOR-Csnw Lisa Barnett, RN RN kd3 Darlene Chow RN RN nj1
[2022-12-23 21:51] VITALS: BP 138/85; TEMP 99.1; O2SAT 100
== END 2022-12-23 21:26 | disposition home or self-care (01) ==
LOC: ER 18:41
DX: S46.011A Strain of muscle(s) and tendon(s) of the rotator cuff of right shoulder, initial encounter (principal)
CPT/HCPCS: 71045; 96372; 99284

== ENCOUNTER → 2023-08-31 | Emergency (ER) | payer OTHER ==
[~2023-08-31] MED LIST: AZITHROMYCIN 250 MG TAB ONE; IBUPROFEN 400 MG TAB ONE
--- OUTSIDE RECORDS SUMMARY | 2023-08-31 11:34 | XMS REPORT | Continuity of Care Document ---
Author Name Unknown Address [address] [place] [address] [facility] thconnect Address [address] [place] [address] Care Team Providers Care Supervisor Twisting Department Name Role Phone BRITTANY ALFRED Primary Care Physician Unavailab Sujata Lloyd Attending Clinician Unavailable Mauricio Wong Attending Clinician Unavailable MAYTE ARROYO Attending Clinician UnavailMAYTE Oliver Attending Clinician Unavailherlinda e Doctor Unassigned, [place] Attending Clinician U Mayte Blas MD Attending Clinician [phone] CHRISTELLE VALADEZ Attending Clinician Unavailable Christelle Valadez MD Attending Clinician [phone] Lisa Rondon Attending Clinician [phone] LISA FLOYD Attending Clinician Unavailable JOSE MARTIN Attending Clinician Unavailable CHRISTELLE VALADEZ Admitting Clinician Unavailable ILSA FLOYD Admitting Clinician Unavailable Payers Payer Name Policy Type Policy Number Effective Date Expirati on Date Source [employer] II [id number] 2022 00:00:00 Problems Condition Name Condition Details Condition Category Status Onset Date Resolution Date Last Treatment Date Treating Clinician Comments Source [id number] Recurrent deep vein thrombosis (DVT) of left lower extremity Problem Active [facility] [id number] HTN, goal below 130/80 Problem Active [facility] [id number] Type 2 diabetes mellitus with other specified complicati on, without long-term current use of insulin Problem Active [facility] [id number] Mixed hyperlipid emia Problem Active [facility] [id number] Diabetic polyneurop athy associated with type 2 diabetes mellitus Problem Active [facility] [id number] Body mass index (BMI) of 40.0 to 44.9 in adult Problem Active [facility] [id number] History of pulmonary embolism Problem Active [facility] [id number] Edema of left lower extremity Problem Active [facility] [id number] Other chronic pain Problem Active [facility] No known active problems No known active problems Disease [facility] Allergies, Adverse Reactions, Alerts Allergy Name Allergy Type Status Severity Reaction(s) Onset Date Inactive Date Treating Clinician Comments Source NO KNOWN ALLERGIE S Drug Class Active [facility] Social History Social Habit Start Date Stop Date Quantity Comments Source History of Tobacco Use Current Smoker [facility] Sex Assigned At [facility] Sexual orientation U [facility] Exposure to SARS-CoV-2 (event) 2022-06-08 00:00:00 2022-06-18 19:45:00 Not sure [facility] Smoking Status Start Date Stop Date Source Current Smoker 2021-11-12 00:00:00 [facility] Tobacco smoking consumption unknown [facility] Medications Ordered Medication Name Filled Medication Name Start Date Stop Date Current Medication? Ordering Clinician Indication Dosage Frequency Signature (SIG) Comments Components Source triamcinolo ne acetonide (KENALOG) injection 40 mg 2022-06 23:00: 00 05-07 21:48 :00 No [id number] 9100 40mg [facility] triamcinolo ne acetonide (KENALOG) injection 40 mg 2022-06 23:00: 00 05-07 21:48 :00 No [id number] 9100 40mg 40 mg, Intramuscu lar, ONCE, 1 dose, On Thu05/07/23 at 1700, Routine [facility] triamcinolo ne acetonide (KENALOG) injection 40 mg 2022-06 23:00: 00 05-07 21:48 :00 No [id number] 9100 40mg [facility] triamcinolo ne acetonide (KENALOG) injection 40 mg 2022-06 23:00: 00 05-07 21:48 :00 No [id number] 9100 40mg 40 mg, Intramuscu lar, ONCE, 1 dose, On Thu05/07/23 at 1700, Routine [facility] ondansetron (ZOFRAN (PF)) injection 4 mg 2021-06 03:45: 00 06-19 02:49 :00 No 4mg 4 mg, Slow IV Push, ONCE, 1 dose, On Thu06/18/22 at 2145, ZION [facility] morpHINE (4 mg/mL) injection 4 mg 2021-06 03:45: 00 06-19 02:49 :00 No 4mg 4 mg, Slow IV Push, ONCE, 1 dose, On Thu06/18/22 at 2145, STAT [facility] HYDROcodone -acetaminop hen (NORCO) 10-325 mg tablet 1 tablet 2021-06 02:45: 00 06-19 01:58 :00 No 1{tbl} 1 tablet, Oral, ONCE, 1 dose, On Thu06/18/22 at 2045, Routine [facility] amoxicillin -clavulanat e (AUGMENTIN) 875-125 mg per tablet 1 tablet 2021-06 02:45: 00 06-19 01:58 :00 No 1{tbl} 1 tablet, Oral, ONCE, 1 dose, On Thu06/18/22 at 2045, Routine
Reason for Anti-Infec tive: Documented Infection< br>Documen heber Infection Site: Vascular<b r>Duration of Therapy: Other (see Comments) [facility] amoxicillin -clavulanat e 875-125 mg per tablet 2021-06 00:00: 00 Yes [id number] 1{tbl} Take 1 tablet by mouth every 12 (twelve) hours. [facility] amoxicillin -clavulanat e 875-125 mg per tablet 2021-06 00:00: 00 Yes [id number] 1{tbl} Take 1 tablet by mouth every 12 (twelve) hours. [facility] amoxicillin -clavulanat e 875-125 mg per tablet 2021-06 00:00: 00 Yes [id number] 1{tbl} Take 1 tablet by mouth every 12 (twelve) hours. [facility] amoxicillin -clavulanat e 875-125 mg per tablet 2021-06 00:00: 00 Yes [id number] 1{tbl} Take 1 tablet by mouth every 12 (twelve) hours. [facility] amoxicillin -clavulanat e 875-125 mg per tablet 2021-06 00:00: 00 Yes [id number] 1{tbl} Take 1 tablet by mouth every 12 (twelve) hours. [facility] amoxicillin -clavulanat e 875-125 mg per tablet 2021-06 00:00: 00 Yes [id number] 1{tbl} Take 1 tablet by mouth every 12 (twelve) hours. [facility] Gabapentin 300 MG Gabapentin 300 MG 08-29 00:00: 00 No 1{capsu le} TID Gabapentin 300 MG Gabapentin 300 MG Gabapentin 300 MG 3- 00:00: 00 No 1{capsu le} TID Gabapentin 300 MG metFORMIN HCl 1000 MG metFORMIN HCl 1000 MG 1- 00:00: 00 No 1{table t_with_ a_meal} BID metFORMIN HCl 1000 MG insulin glargine,lexis ritterrec.anlog (LANRylieUS [place]) 2021-0 1-26 02:02: 58 Yes 60U inject 60 Units under the skin. [facility] GLIMEPIRIDE ORAL 07-17 02:02: 58 Yes Take by mouth. [facility] apixaban (ELIQUIS ORAL) 07-17 02:02: 58 Yes Take by mouth. [facility] Hydrocodone -Acetaminop hen 7.5-300 mg tablet 07-17 02:02: 58 Yes Take by mouth. [facility] losartan potassium (LOSARTAN ORAL) 07-17 02:02: 58 Yes Take by mouth. [facility] gabapentin 300 mg capsule 07-17 02:02: 58 Yes 300mg Take 300 mg by mouth 2 (two) times daily as needed. [facility] FENTanyl PF (SUBLIMAZE (PF)) injection 100 mcg 07-17 01:52: 00 07-17 02:04 :00 No 100ug 100 mcg, Intramuscu lar, ONCE, 1 dose, Thu07/16/20 at 1999, [facility] cyclobenzap rine (FLEXERIL) tablet 10 mg 07-17 01:52: 00 07-17 02:03 :00 No 10mg 10 mg, Oral, ONCE, 1 dose, Thu07/16/20 at 1999, [facility] insulin glargine,lexis ritterrec.anlog (LANTUS [place]) 07-16 20:02: 58 Yes 60U inject 60 Units under the skin. [facility] GLIMEPIRIDE ORAL 07-16 20:02: 58 Yes Take by mouth. [facility] apixaban (ELIQUIS ORAL) 07-16 20:02: 58 Yes Take by mouth. [facility] Hydrocodone -Acetaminop hen 7.5-300 mg tablet 07-16 20:02: 58 Yes Take by mouth. [facility] losartan potassium (LOSARTAN ORAL) 07-16 20:02: 58 Yes Take by mouth. [facility] gabapentin 300 mg capsule 07-16 20:02: 58 Yes 300mg Take 300 mg by mouth 2 (two) times daily as needed. [facility] insulin glarginelexis.rec.anlog (LANTUS [place]) 07-16 20:02: 58 Yes 60U inject 60 Units under the skin. [facility] GLIMEPIRIDE ORAL 07-16 20:02: 58 Yes Take by mouth. [facility] apixaban (ELIQUIS ORAL) 07-16 20:02: 58 Yes Take by mouth. [facility] Hydrocodone -Acetaminop hen 7.5-300 mg tablet 07-16 20:02: 58 Yes Take by mouth. [facility] losartan potassium (LOSARTAN ORAL) 07-16 20:02: 58 Yes Take by mouth. [facility] gabapentin 300 mg capsule 07-16 20:02: 58 Yes 300mg Take 300 mg by mouth 2 (two) times daily as needed. [facility] insulin glarginelexis.rec.anlog ([place]US [place]) 07-16 20:02: 58 Yes 60U inject 60 Units under the skin. [facility] GLIMEPIRIDE ORAL 07-16 20:02: 58 Yes Take by mouth. [facility] apixaban (ELIQUIS ORAL) 07-16 20:02: 58 Yes Take by mouth. [facility] Hydrocodone -Acetaminop hen 7.5-300 mg tablet 07-16 20:02: 58 Yes Take by mouth. [facility] losartan potassium (LOSARTAN ORAL) 07-16 20:02: 58 Yes Take by mouth. [facility] gabapentin 300 mg capsule 07-16 20:02: 58 Yes 300mg Take 300 mg by mouth 2 (two) times daily as needed. [facility] insulin glarginelexis.rec.anlog ([place]US [place]) 07-16 20:02: 58 Yes 60U inject 60 Units under the skin. [facility] GLIMEPIRIDE ORAL 07-16 20:02: 58 Yes Take by mouth. [facility] apixaban (ELIQUIS ORAL) 07-16 20:02: 58 Yes Take by mouth. [facility] Hydrocodone -Acetaminop hen 7.5-300 mg tablet 07-16 20:02: 58 Yes Take by mouth. [facility] losartan potassium (LOSARTAN ORAL) 07-16 20:02: 58 Yes Take by mouth. [facility] gabapentin 300 mg capsule 07-16 20:02: 58 Yes 300mg Take 300 mg by mouth 2 (two) times daily as needed. [facility] insulin glarginelexisrec.anlog ([place]US [place]) 07-16 20:02: 58 Yes 60U inject 60 Units under the skin. [facility] GLIMEPIRIDE ORAL 07-16 20:02: 58 Yes Take by mouth. [facility] apixaban (ELIQUIS ORAL) 07-16 20:02: 58 Yes Take by mouth. [facility] Hydrocodone -Acetaminop hen 7.5-300 mg tablet 07-16 20:02: 58 Yes Take by mouth. [facility] losartan potassium (LOSARTAN ORAL) 07-16 20:02: 58 Yes Take by mouth. [facility] gabapentin 300 mg capsule 07-16 20:02: 58 Yes 300mg Take 300 mg by mouth 2 (two) times daily as needed. [facility] insulin glarginelexis .rec.anlog ([place]) 07-16 20:02: 58 Yes 60U inject 60 Units under the skin. [facility] GLIMEPIRIDE ORAL 07-16 20:02: 58 Yes Take by mouth. [facility] apixaban (ELIQUIS ORAL) 07-16 20:02: 58 Yes Take by mouth. [facility] Hydrocodone -Acetaminop hen 7.5-300 mg tablet 07-16 20:02: 58 Yes Take by mouth. [facility] losartan potassium (LOSARTAN ORAL) 07-16 20:02: 58 Yes Take by mouth. [facility] gabapentin 300 mg capsule 07-16 20:02: 58 Yes 300mg Take 300 mg by mouth 2 (two) times daily as needed. [facility] cyclobenzap rine 10 mg tablet 07-16 00:00: 00 Yes [id number] 10mg Take 1 tablet by mouth 2 (two) times daily as needed for Muscle Spasms. [facility] cyclobenzap rine 10 mg tablet 07-16 00:00: 00 Yes [id number] 10mg Take 1 tablet by mouth 2 (two) times daily as needed for Muscle Spasms. [facility] cyclobenzap rine 10 mg tablet 07-16 00:00: 00 Yes [id number] 10mg Take 1 tablet by mouth 2 (two) times daily as needed for Muscle Spasms. [facility] cyclobenzap rine 10 mg tablet 07-16 00:00: 00 Yes [id number] 10mg Take 1 tablet by mouth 2 (two) times daily as needed for Muscle Spasms. [facility] cyclobenzap rine 10 mg tablet 07-16 00:00: 00 Yes [id number] 10mg Take 1 tablet by mouth 2 (two) times daily as needed for Muscle Spasms. [facility] cyclobenzap rine 10 mg tablet 07-16 00:00: 00 Yes [id number] 10mg Take 1 tablet by mouth 2 (two) times daily as needed for Muscle Spasms. [facility] cyclobenzap rine 10 mg tablet 07-16 00:00: 00 Yes [id number] 10mg Take 1 tablet by mouth 2 (two) times daily as needed for Muscle Spasms. [facility] Toradol (Ketorolac) Toradol (Ketorolac) 02-28 00:00: 00 No 30mg [facility] Toradol (Ketorolac) Toradol (Ketorolac) 02-28 00:00: 00 No 30mg [facility] Toradol (Ketorolac) Toradol (Ketorolac) 02-28 00:00: 00 No 30mg [facility] Toradol (Ketorolac) Toradol (Ketorolac) 02-28 00:00: 00 No 30mg [facility] Toradol (Ketorolac) Toradol (Ketorolac) 02-28 00:00: 00 No 30mg [facility] Lovastatin Lovastatin 10-19 00:00: 00 Yes Delmi Miguel 1 tablet with the evening meal [facility] Lantus SoloStar Lantus SoloStar 10-10 00:00: 00 Yes Delmi Miguel 30 units [facility] Lantus SoloStar 100 UNIT/ML Lantus SoloStar 100 UNIT/ML 10-10 00:00: 00 No QD Lantus SoloStar 100 UNIT/ML metFORMIN HCl 1000 MG metFORMIN HCl 1000 MG No 1{table t_with_ a_meal} BID metFORMIN HCl 1000 MG Gabapentin 100 MG Gabapentin 100 MG No 1{capsu le} TID Gabapentin 100 MG Glimepiride 4 MG Glimepiride 4 MG No 1{table t_with_ breakfa st_or_t he_firs t_main_ meal_of _the_da y} BID Glimepirid e 4 MG Acetaminoph en 500 MG Acetaminoph en 500 MG No 1{table t_as_ne eded} QID Acetaminop hen 500 MG Losartan Potassium 25 MG Losartan Potassium 25 MG No 1{table t} QD Losartan Potassium 25 MG Lovastatin 20 MG Lovastatin 20 MG No QD Lovastatin 20 MG Eliquis 5 mg 5 mg Eliquis 5 mg 5 mg No 1{table t} Eliquis 5 mg 5 mg Glimepiride 4 MG Glimepiride 4 MG No 1{table t_with_ breakfa st_or_t he_firs t_main_ meal_of _the_da y} BID Glimepirid e 4 MG Eliquis 5 mg 5 mg Eliquis 5 mg 5 mg No 1{table t} Eliquis 5 mg 5 mg metFORMIN HCl 1000 MG metFORMIN HCl 1000 MG No 1{table t_with_ a_meal} BID metFORMIN HCl 1000 MG Losartan Potassium 25 MG Losartan Potassium 25 MG No 1{table t} QD Losartan Potassium 25 MG Lovastatin 20 MG Lovastatin 20 MG No QD Lovastatin 20 MG Glimepiride 4 MG Glimepiride 4 MG No 1{table t_with_ breakfa st_or_t he_firs t_main_ meal_of _theda y} BID Glimepirid e 4 MG Eliquis 5 mg 5 mg Eliquis 5 mg 5 mg No 1{table t} Eliquis 5 mg 5 mg metFORMIN HCl 1000 MG metFORMIN HCl 1000 MG No 1{table t_with_ a_meal} BID metFORMIN HCl 1000 MG Losartan Potassium 25 MG Losartan Potassium 25 MG No 1{table t} QD Losartan Potassium 25 MG Lovastatin 20 MG Lovastatin 20 MG No QD Lovastatin 20 MG Glimepiride 4 MG Glimepiride 4 MG No 1{table t_with_ breakfa st_or_t he_firs t_main_ meal_of _the_da y} BID Glimepirid e 4 MG Losartan Potassium 25 MG Losartan Potassium 25 MG No 1{table t} QD Losartan Potassium 25 MG metFORMIN HCl 1000 MG metFORMIN HCl 1000 MG No 1{table t_with_ a_meal} BID metFORMIN HCl 1000 MG Gabapentin 300 MG Gabapentin 300 MG No 1{capsu le} TID Gabapentin 300 MG Lovastatin 20 MG Lovastatin 20 MG No QD Lovastatin 20 MG Eliquis 5 mg 5 mg Eliquis 5 mg 5 mg No 1{table t} Eliquis 5 mg 5 mg No known medications No [facility] Lantus Lantus Yes Delmi Miguel 32 units Common [facility] Eliquis 5 mg Eliquis 5 mg Yes Delmi Miguel 1 tablet [facility] Losartan Potassium Losartan Potassium Yes Delmi Miguel 1 tablet [facility] Glimepiride Glimepiride Yes Delmi Miguel 1 tablet with breakfast or the first main meal of the day [facility] Acetaminoph en Acetaminoph en Yes Delmi Miguel 1 tablet as needed [facility] Lovastatin 20 MG Lovastatin 20 MG No QD Lovastatin 20 MG Eliquis 5 mg 5 mg Eliquis 5 mg 5 mg No 1{table t} Eliquis 5 mg 5 mg Gabapentin 300 MG Gabapentin 300 MG No 1{capsu le} TID Gabapentin 300 MG Glimepiride 4 MG Glimepiride 4 MG No 1{table t_with_ breakfa st_or_t he_firs t_main_ meal_of _the_da y} BID Glimepirid e 4 MG Losartan Potassium 25 MG Losartan Potassium 25 MG No 1{table t} QD Losartan Potassium 25 MG metFORMIN HCl 1000 MG metFORMIN HCl 1000 MG No 1{table t_with_ a_meal} BID metFORMIN HCl 1000 MG Lovastatin 20 MG Lovastatin 20 MG No QD Lovastatin 20 MG Eliquis 5 mg 5 mg Eliquis 5 mg 5 mg No 1{table t} Eliquis 5 mg 5 mg Gabapentin 300 MG Gabapentin 300 MG No 1{capsu le} TID Gabapentin 300 MG Glimepiride 4 MG Glimepiride 4 MG No 1{table t_with_ breakfa st_or_t he_firs t_main_ meal_of _the_da y} BID Glimepirid e 4 MG Losartan Potassium 25 MG Losartan Potassium 25 MG No 1{table t} QD Losartan Potassium 25 MG Vital Signs Vital Name Observation Time Observation Value Comments S ournancy Systolic blood pressure 2023-05-07 21:27:00 153 mm[Hg] [facility] Diastolic blood pressure 2023-05-07 21:27:00 89 mm[Hg] [facility] Heart rate 2023-05-07 21:27:00 74 /min [facility] Respiratory rate 2023-05-07 21:27:00 16 /min [facility] Body weight 2023-05-07 21:27:00 138.602 kg [facility] BMI 2023-05-07 21:27:00 42.62 kg/m2 [facility] Systolic blood pressure 2022-06-19 03:41:00 134 mm[Hg] [facility] Diastolic blood pressure 2022-06-19 03:41:00 105 mm[Hg] [facility] Heart rate 2022-06-19 03:00:00 82 /min [facility] Respiratory rate 2022-06-19 03:00:00 17 /min [facility] Oxygen saturation in Arterial blood by Pulse oximetry 2022-06-19 03:00:00 91 /min [facility] Body temperature 2022-06-19 01:46:00 37.56 Cathy [facility] Body height 2022-06-19 01:46:00 180.3 cm [facility] Body weight 2022-06-19 01:46:00 124.739 kg [facility] BMI 2022-06-19 01:46:00 38.35 kg/m2 [facility] height 2021-08-29 08:00:00 71 [in_i] Commo n [facility] weight 2021-08-29 08:00:00 298.4 [lb_av] Co mmon [facility] temperature 2021-08-29 08:00:00 98.1 [degF] Com mon [facility] bmi 2021-08-29 08:00:00 41.61 kg/m2 Comm on [facility] oximetry 2021-08-29 08:00:00 97 % Commo n [facility] respiratory rate 2021-08-29 08:00:00 18 /min [facility] blood pressure systolic 2021-08-29 08:00:00 138 mm[Hg] Common [facility] blood pressure diastolic 2021-08-29 08:00:00 82 mm[Hg] Common [facility] height 2021-07-01 08:20:00 71 [in_i] Commo n [facility] weight 2021-07-01 08:20:00 303.4 [lb_av] Co mmon [facility] temperature 2021-07-01 08:20:00 97.9 [degF] Com mon [facility] bmi 2021-07-01 08:20:00 42.31 kg/m2 Comm on [facility] oximetry 2021-07-01 08:20:00 98 % Commo n [facility] respiratory rate 2021-07-01 08:20:00 18 /min Common [facility] blood pressure systolic 2021-07-01 08:20:00 136 mm[Hg] [facility] blood pressure diastolic 2021-07-01 08:20:00 84 mm[Hg] [facility] Systolic blood pressure 2020-07-17 02:22:00 147 mm[Hg] [facility] Diastolic blood pressure 2020-07-17 02:22:00 98 mm[Hg] [facility] Heart rate 2020-07-17 02:22:00 87 /min [facility] Respiratory rate 2020-07-17 02:22:00 18 /min [facility] Oxygen saturation in Arterial blood by Pulse oximetry 2020-07-17 02:22:00 99 /min [facility] Heart rate 2020-07-16 22:11:00 90 /min [facility] Body temperature 2020-07-16 22:11:00 37.28 Cathy [facility] Respiratory rate 2020-07-16 22:11:00 20 /min [facility] Body weight 2020-07-16 22:11:00 142.883 kg [facility] BMI 2020-07-16 22:11:00 43.93 kg/m2 [facility] Oxygen saturation in Arterial blood by Pulse oximetry 2020-07-16 22:11:00 99 /min [facility] Systolic blood pressure 2020-07-16 22:11:00 166 mm[Hg] [facility] Diastolic blood pressure 2020-07-16 22:11:00 114 mm[Hg] [facility] Systolic blood pressure 2020-07-17 02:22:00 147 mm[Hg] [facility] Diastolic blood pressure 2020-07-17 02:22:00 98 mm[Hg] [facility] Heart rate 2020-07-17 02:22:00 87 /min [facility] Respiratory rate 2020-07-17 02:22:00 18 /min [facility] Oxygen saturation in Arterial blood by Pulse oximetry 2020-07-17 02:22:00 99 /min [facility] Heart rate 2020-07-16 22:11:00 90 /min [facility] Body temperature 2020-07-16 22:11:00 37.28 Cathy [facility] Respiratory rate 2020-07-16 22:11:00 20 /min [facility] Body weight 2020-07-16 22:11:00 142.883 kg [facility] BMI 2020-07-16 22:11:00 43.93 kg/m2 [facility] Oxygen saturation in Arterial blood by Pulse oximetry 2020-07-16 22:11:00 99 /min [facility] Systolic blood pressure 2020-07-16 22:11:00 166 mm[Hg] [facility] Diastolic blood pressure 2020-07-16 22:11:00 114 mm[Hg] [facility] Procedures Procedure Date / Time Performed Performing Clinician Source EXTERNAL PROVIDER RECORDS 2023-05-21 06:01:00 Doctor Unassigned, [place] [facility] RADIOLOGY DOCUMENTATION 2023-05-06 06:01:00 Doct or Unassigned, [place] [facility] REFERRAL- REQUEST/RESPONSE 2023-04-22 05:01:00 Doctor Unassigned, [place] [facility] COMP. METABOLIC PANEL ([id number]) 2022-06-19 01:57:00 Christelle Valadez [facility] CBC WITH DIFF 2022-06-19 01:57:00 Christelle Valadez [facility] CONSENT/REFUSAL FOR DIAGNOSIS AND TREATMENT 2022-06-19 01:31:40 Doctor Unassigned, [place] [facility] XR LUMBAR SPINE 3 VW 2020-07-17 00:14:38 uRddy Floyd [facility] UNILATERAL VENOUS DUPLEX LOWER EXTREMITY BY VASCULAR LAB 2020-07-16 23:02:50 Lisa Floyd [facility] NOTICE OF PRIVACY PRACTICES 2020-07-16 22:20:23 Doctor Unassigned, [place] [facility] CONSENT/REFUSAL FOR DIAGNOSIS AND TREATMENT 2020-07-16 22:20:07 Doctor Unassigned, [place] [facility] Encounters Start Date/Time End Date/Time Encounter Type Admission Type Attending [facility] Care Facility Care Department Encounter ID Source 2022-03-17 14:57:01 Outpatient Sujata Olmedo [facility] [id number] [facility] 2022-02-17 10:01:01 Outpatient OlmedoSujata carpenter STLC STLMLC [id number] [facility] 2021-10-30 09:58:00 Outpatient Sujata Olmedo ST[facility] STLMLC [id number] [facility] 2021-08-28 08:58:01 Outpatient Sujata Olmedo ST[facility] STLMLC [id number] [facility] 2021-07-17 14:33:35 Outpatient OlmedoSujata carpenter STLMLC STLMLC [id number] [facility] 2021-07-17 14:30:04 Outpatient Sujata Olmedo STLMLC STLMLC [id number] [facility] 2021-07-17 14:14:50 Outpatient Wong, Mauricio STLMLC STLMLC [id number] [facility] 2021-07-17 14:14:29 Outpatient WongDaniel linkh STLMLC STLMLC [id number] [facility] 2021-07-17 14:02:28 Outpatient Wong, [facility] [id number] [facility] 2021-07-17 11:58:28 Outpatient Wong, [facility] [id number] [facility] 2021-07-17 11:58:09 Outpatient Wong, [facility] [id number] [facility] 2021-07-17 11:19:47 Outpatient Wong, [facility] [id number] [facility] 2021-07-17 11:19:40 Outpatient Wong, [facility] [id number] [facility] 2023-07-16 16:00:00 2023-07-16 16:00:00 Outpatient MAYTE ZAIDI [facility] [id number] [facility] 2023-07-02 16:00:00 2023-07-02 16:00:00 Outpatient MAYTE ZAIDI [facility] [id number] [facility] 2023-05-21 00:00:00 2023-05-21 00:00:00 Orders Only Doctor Unassigned, [place] [facility] [id number] [facility] 2023-05-07 15:30:00 2023-05-07 15:51:55 Outpatient R MAYTE ARROYO [facility] [id number] [facility] 2023-05-07 15:30:00 2023-05-07 15:51:55 Office Visit Mayte Arroyo [facility] [facility] [id number] [id number] [id number] [facility] 2023-05-06 00:00:00 2023-05-06 00:00:00 Orders Only Doctor Unassigned, [place] [facility] [id number] 350.1.13.10 [id number] [id number] [facility] 2023-04-22 00:00:00 2023-04-22 00:00:00 Orders Only Doctor Unassigned, [place] [facility] [id number] [id number] [id number] [id number] [facility] 2023-03-12 00:00:00 2023-03-12 00:00:00 (TEL) STLMLC STLMLC [id number] [facility] 2022-06-18 19:43:00 2022-06-18 21:43:00 Emergency X CHRISTELLE VALADEZ [facility] ERT [id number] [facility] 2022-06-18 19:43:00 2022-06-18 21:43:00 Emergency Christelle Valadez [facility] [id number] [id number] [id number] [id number] [facility] 2022-02-17 00:00:00 2022-02-17 00:00:00 (TEL) STLMLC STLMLC [id number] [facility] 2021-10-31 00:00:00 2021-10-31 00:00:00 (TEL) STLMLC STLMLC [id number] [facility] 2021-09-02 00:00:00 2021-09-02 00:00:00 (TEL) STLMLC STLMLC [id number] [facility] 2021-08-29 00:00:00 2021-08-29 00:00:00 OFFICE VISIT EST PT LEVEL 3 STLMLC STLMLC [id number] [facility] 2021-07-01 00:00:00 2021-07-01 00:00:00 OFFICE VISIT EST PT LEVEL 3 STLMLC STLMLC [id number] [facility] 2020-07-16 16:22:00 2020-07-16 20:29:00 Emergency Lisa Floyd [facility] [id number] [id number] 4.2.7.2.686 [id number] [facility] 2020-07-16 16:22:00 2020-07-16 20:29:00 Emergency X [facility] ERT [id number] [facility] 2020-07-16 16:22:00 2020-07-16 20:29:00 Emergency [facility] [id number] [id number] 4.2.7.2.686 [id number] 2020-04-05 00:00:00 2020-04-05 00:00:00 Outpatient STLMLC STLMLC [id number] [facility] 2020-03-28 00:00:00 2020-03-28 00:00:00 Outpatient STLMLC STLMLC [id number] [facility] 2020-02-29 15:00:00 2020-02-29 15:00:00 [address] [facility] [address] [facility] [id number] [facility] 2020-02-29 12:06:00 2020-02-29 12:06:00 [facility] [address] [facility] [id number] [facility] 2020-01-19 14:30:00 2020-01-19 14:30:00 [facility] [address] [facility] [id number] [facility] 2019-10-20 14:45:00 2019-10-20 14:45:00 [address] [facility] [address] [facility] [id number] [facility] 2019-10-11 14:20:00 2019-10-11 14:20:00 [facility] [id number] [facility] 2019-09-20 10:15:00 2019-09-20 10:15:00 [facility] [id number] [facility] 2019-09-19 13:48:00 2019-09-19 13:48:00 [facility] [place] [facility] [id number] [facility] 2019-02-25 08:45:00 2019-02-25 08:45:[address] [facility] [id number] [facility] 2019-01-12 13:46:00 2019-01-12 13:46:00 [facility]patient [facility] [id number] [facility] 2019-01-06 13:30:00 2019-01-06 13:30:00 Outpatient [facility] [id number] [facility] 2002-09-04 15:49:00 2002-09-04 16:35:00 Emergency ER [facility] [id number] [facility] Results Test Description Test Time Test Comments Results Result Co mments Source XR LUMBAR SPINE 3 [id number] 01:53:33No acute osseous abnormality RL: [id number] End of Report Ordering Physician: LISA FLOYD HISTORY: Lower back pain TECHNIQUE: Frontal, lateraland coned lateral views COMPARISON: none FINDINGS: There is no acute fracture or dislocation. There is normal alignmentwithout subluxation. ?The heights of the vertebral bodies are maintained. Thereis no spondylolysis. ?The disk heights are preserved. [facility], Radiant Results Inft User - 07/16/2020 7 :54 PM CSTOrdering Physician: LISA BUNDYISTORY: Lower back painTECHNIQUE: Frontal, lateral andconed lateral viewsCOMPARISON: noneFINDINGS: There is no acute fracture or dislocation. There is normal alignmentwithout subluxation. The heights of the vertebral bodies are maintained. There is no spondylolysis. The disk heights are preserved. IMPRESSIONNo acute osseous abnormalityRL: [id number] of Report [facility]
--- NOTE | 2023-08-31 12:10 | RAD REPORT ---
EXAM DESCRIPTION: RAD - Chest Single View - 08/31/2023 11:59 am CLINICAL HISTORY: COUGH Chest pain. COMPARISON: Chest Single View dated 12/23/2022; Chest Single View dated 09/28/2020; Chest Single View da heber 11/16/2018; Chest Single View dated 09/21/2017 FINDINGS: Portable technique limits examination quality. The lungs are grossly clear. The heart is normal in size. No displaced fractures. IMPRESSION: No acute intrathoracic process suspected.
--- NOTE | 2023-08-31 12:48 | ER ---
Nurse's Notes [facility] Name: Dustin Granados Jr Age: 38 yrs Sex: Male : 1985 Arrival Date: 08/31/2023 Time: :29 Bed 12 Private MD: Diagnosis: Fever, unspecified;Cough Presentation: 08/30 11:41 Initial Sepsis Screen: Does the patient meet any 2 criteria?. kb3 11:47 Chief complaint: Patient states: I started feeling sick on and my cough has kd3 progressed since then. I have had the cough with yellow mucous and runny nose, fever and diarrhea. I have not been around anyone sick. I tested myself at home for covid and i was negative. Coronavirus screen: Vaccine status: unknown. Ebola Screen: No symptoms or risks identified at this time. Initial Sepsis Screen: Does the patient meet any 2 criteria? No. Patient's initial sepsis screen is negative. Does the patient have a suspected source of infection? No. Patient's initial sepsis screen is negative. 11:47 Method Of Arrival: Ambulatory kd3 11:47 Risk Assessment: Do you want to hurt yourself or someone else? Patient reports no kd3 desire to harm self or others. Onset of symptoms was August 31, 2023. 11:47 Acuity: NICHOLE 4 kd3 Triage Assessment: 11:50 General: Appears in no apparent distress. Behavior is calm, cooperative. Pain: Denies kd3 pain. EENT: Throat is reddened. Historical: - PMHx: 11:50 Diabetes - IDDM; Hypertension; left leg DVT; Myocardial infarction; kd3 - Immunization history:: Adult Immunizations up to date, Client reports receiving the 2nd dose of the Covid vaccine. - Social history:: Smoking status: Patient denies any tobacco usage or history of. - Family history:: not pertinent. - Hospitalizations: : No recent hospitalization is reported. Screenin:04 [facility] ED Fall Risk Assessment (Adult) History of falling in the last 3 months, aa5 including since admission No falls in past 3 months (0 pts) Confusion or Disorientation No (0 pts) Intoxicated or Sedated No (0 pts) Impaired Gait No (0 pts) Mobility Assist Device Used No (0 pt) Altered Elimination No (0 pt) Score/Fall Risk Level 0 - 2 = Low Risk Oriented to surroundings, Maintained a safe environment, Educated pt \T\ family on fall prevention, incl call for assistance when getting out of bed. Abuse screen: Denies threats or abuse. Nutritional screening: No deficits noted. Tuberculosis screening: No symptoms or risk factors identified. Assessment: 11:52 General: xray at bedside . 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 Pain: Complains of pain in throat. Neuro: Level of Consciousness is awake, alert, obeys commands, Oriented to person, place, time, situation. Cardiovascular: Heart tones S1 S2 present Rhythm is regular. Respiratory: Reports cough Airway is patent Respiratory effort is even, unlabored, Respiratory pattern is regular, symmetrical, Breath sounds are clear bilaterally. GI: Abdomen is obese, Bowel sounds present X 4 quads. Abd is soft and non tender X 4 quads. Reports diarrhea. : No signs and/or symptoms were reported regarding the genitourinary system. EENT: Throat is reddened with gag reflex present, Reports nasal discharge that is yellow sore throat . Derm: Skin is pink, warm \T\ dry. Musculoskeletal: Range of motion: intact in all extremities. Vital Signs: 11:47 BP 154 / 98; Pulse 104; Resp 17; Temp 99; Pulse Ox 100% on R/A; Weight 131.09 kg; kd3 12:35 BP 149 / 95; Pulse 99; Resp 17; Pulse Ox 100% on R/A; kd3 ED Course: 11:32 Patient arrived in ED. ra3 11:33 Jorge Botello MD is Attending Physician. rn 11:49 Triage completed. kd3 11:50 Arm band placed on right wrist. kd3 11:55 Patient has correct armband on for positive identification. Bed in low position. Call aa5 light in reach. Side rails up X 1. Pulse ox on. NIBP on. 11:55 Flu and/or RSV swab sent to lab. Strep swab sent to lab. aa5 11:58 Jessica Montejo, RN is Primary Nurse. aa5 12:00 XRAY Chest (1 view) In Process Unspecified. EDMS 13:20 No provider procedures requiring assistance completed. Patient did not have IV access kd3 during this emergency room visit. 13:21 Provided Education on: antibiotic . kd3 Administered Medications: 11:58 Not Given (Duplicate Order): [id number] mg PO once rn 13:20 Drug: AZITHromycin PO 500 mg PO once Route: PO; kd3 Medication: 12:04 VIS not applicable for this client. aa5 Outcome: 12:47 Discharge ordered by . rn 13:20 Discharged to home ambulatory, kd3 13:20 Condition: stable 13:20 Discharge instructions given to patient, Instructed on discharge instructions, follow up and referral plans. medication usage, Demonstrated understanding of instructions, follow-up care, medications, Prescriptions given X 1, 13:21 Patient left the ED. kd3 Signatures: Dispatcher [employer] EDMS Jorge Botello MD MD rn Calderon, Audri, RN RN aa5 Lisa Barnett RN RN kd3 Jaky Hidalgo RN RN danilo3 Phoebe Blanco ra3 Corrections: (The following items were deleted from the chart) 12:04 11:55 General: Appears uncomfortable, Behavior is calm, cooperative, aa5 aa5
--- NOTE | 2023-08-31 12:48 | EDPHYS ---
Physician Documentation [facility] Name: Dustin Granados Jr Age: 38 yrs Sex: Male : 1985 Arrival Date: 08/31/2023 Time: 11:29 Bed 12 Private MD: ED Physician Jorge Botello HPI: 08/30 11:56 This 38 yrs old Black Male presents to ER via Ambulatory with complaints of Sore rn Throat, Cough. 11:56 The patient presents with sore throat. The patient describes throat pain as raw. Onset: rn The symptoms/episode began/occurred 5 day(s) ago. Severity of symptoms: At their worst the symptoms were mild, in the emergency department the symptoms are unchanged. Modifying factors: The symptoms are alleviated by nothing, the symptoms are aggravated by nothing. The patient has not experienced similar symptoms in the past. Patient reports sore throat, productive cough for 5 days now. Is having subjective fever and chills as well. Took Tylenol prior to coming in today. Called PCP and told to come to ER prior to his appointment at 3 PM. Patient denies shortness of breath. No hemoptysis.. Historical: - PMHx: 11:50 Diabetes - IDDM; Hypertension; left leg DVT; Myocardial infarction; kd3 - Immunization history:: Adult Immunizations up to date, Client reports receiving the 2nd dose of the Covid vaccine. - Social history:: Smoking status: Patient denies any tobacco usage or history of. - Family history:: not pertinent. - Hospitalizations: : No recent hospitalization is reported. ROS: 11:56 Constitutional: Positive for subjective fever and chills ENT: Positive for sore throat rn and congestion Neck: Negative for injury, pain, and swelling, Cardiovascular: Negative for chest pain, palpitations, and edema, Respiratory: Positive for cough Abdomen/GI: Negative for abdominal pain, nausea, vomiting, diarrhea, and constipation, MS/Extremity: Negative for injury and deformity, Skin: Negative for injury, rash, and discoloration, Neuro: Negative for headache, weakness, numbness, tingling, and seizure, Exam: 11:58 Constitutional: This is a well developed, well nourished patient who is awake, alert, rn and in no acute distress. Head/Face: Normocephalic, atraumatic. Eyes: Pupils equal round and reactive to light, extra-ocular motions intact. Lids and lashes normal. Conjunctiva and sclera are non-icteric and not injected. Cornea within normal limits. Periorbital areas with no swelling, redness, or edema. ENT: Positive pharyngeal erythema, no exudate, no stridor, uvula midline Cardiovascular: Tachycardic, regular. No pulse deficits. Respiratory: No increased work of breathing, no retractions or nasal flaring. Abdomen/GI: Soft, non-tender MS/ Extremity: Pulses equal, no cyanosis. Neuro: Awake and alert, GCS 15 Vital Signs: 11:47 BP 154 / 98; Pulse 104; Resp 17; Temp 99; Pulse Ox 100% on R/A; Weight 131.09 kg; kd3 12:35 BP 149 / 95; Pulse 99; Resp 17; Pulse Ox 100% on R/A; kd3 MDM: 11:33 Patient medically screened. rn 12:46 Differential diagnosis: group A strep tonsillitis, influenza, laryngitis, pharyngitis, rn tonsillitis, upper respiratory infection, viral syndrome. Data reviewed: vital signs, nurses notes, lab test result(s), radiologic studies, plain films, and as a result, I will discharge patient. Counseling: I had a detailed discussion with the patient and/or guardian regarding the historical points, exam findings, and any diagnostic results supporting the discharge/admit diagnosis, lab results, radiology results, the need for outpatient follow up, to return to the emergency department if symptoms worsen or persist or if there are any questions or concerns that arise at home. Special discussion: I discussed with the patient/guardian in detail that at this point there is no indication for admission to the hospital. It is understood, however, that if the symptoms persist or worsen the patient needs to return immediately for re-evaluation. 03 11:47 Order name: Flu; Complete Time: 12:41 rn 08/30 11:47 Order name: Strep rn 08/30 12:37 Order name: Throat Culture EDMS 08/30 11:47 Order name: XRAY Chest (1 view); Complete Time: 12:21 rn Administered Medications: 11:58 Not Given (Duplicate Order): [id number] mg PO once rn 13:20 Drug: AZITHromycin PO 500 mg PO once Route: PO; kd3 Disposition Summary: 08/31/23 12:47 Discharge Ordered Notes: Location: Home rn Problem: new rn Symptoms: have improved rn Condition: Stable rn Diagnosis - Fever, unspecified rn - Cough rn Followup: rn - With: Private Physician - When: As needed - Reason: Recheck today's complaints, Re-evaluation by your physician Discharge Instructions: - Discharge Summary Sheet rn - Fever, Adult rn - Cough, Adult rn Forms: - Medication Reconciliation Form rn - Thank You Letter rn - Antibiotic risk intern - Prescription Opioid Use rn - Patient Portal Instructions rn - Leadership Thank You Letter rn Prescriptions: - Zithromax Z-Ron 250 mg Oral Tablet - take 1 tablet ORAL route as directed for 5 days Day 1 - take two (2) tablets rn one time. Day 2, 3, 4 , 5 take one (1) tablet once daily.; 6 tablet; Refills: 0, Product Selection Permitted Signatures: Dispatcher [employer] EDMS Jorge Botello MD MD rn Doucette, Kyli, RN FENG kd3 Corrections: (The following items were deleted from the chart) 11:58 11:56 Constitutional: Positive for subjective fever and chills ENT: Positive for sore rn throat and congestion Neck: Negative for injury, pain, and swelling, Cardiovascular: Negative for chest pain, palpitations, and edema, Respiratory: Positive for cough Abdomen/GI: Negative for abdominal pain, nausea, vomiting, diarrhea, and constipation, MS/Extremity: Negative for injury and deformity, Skin: Negative for injury, rash, and discoloration, Neuro: Negative for headache, weakness, numbness, tingling, and seizure, rn
[2023-08-31 13:54] VITALS: BP 149/95; TEMP 99; O2SAT 100
== END ==
LOC: ER 11:29
DX: R50.9 Fever, unspecified (principal); R05.9 Cough, unspecified; E11.9 Type 2 diabetes mellitus without complications; I10 Essential (primary) hypertension
CPT/HCPCS: 71045; 87070; 87081; 87804; 99284